=== PATIENT | male | born 1940 | race Caucasian/White ===

== ENCOUNTER 2016-06-03 19:14 | Inpatient (IN) | payer MEDICARE, BC ==
[2016-06-03] MEDS ORDERED: IV VANCOMYCIN PER PHARMACY 1 EACH MISC MISCELLANE PRN (22:25)
[2016-06-03] MEDS ORDERED: ONDANSETRON 4 MG/2 ML VIAL IVP STA (22:25)
[2016-06-03] MEDS ORDERED: KETOROLAC 30 MG/ML 1 ML VIAL IVP STA (22:25)
[2016-06-03] MEDS ORDERED: ACETAMINOPHEN IV (For NPO) 1,000 MG in EMPTY BAG 1 BAG IVPB STA (22:25)
[2016-06-03] MEDS ORDERED: SODIUM CHLORIDE 0.9% 1,000 ML IV STA (22:25)
[2016-06-03] MEDS ORDERED: MORPHINE SULFATE 4 MG/ML SYRINGE IV STA (22:25)
[2016-06-03] MEDS ORDERED: VANCOMYCIN 1,750 MG in SODIUM CHLORIDE 0.9% 250 ML IVPB STA (22:28)
[2016-06-03] MEDS ORDERED: SODIUM CHLORIDE 0.9% 1,000 ML IV ONE (22:32)
[2016-06-03] MEDS ORDERED: RX INFO: IV CONTRAST WAS GIVEN 1 EACH MISC MISCELLANE PRN (22:33)
--- NOTE | 2016-06-03 22:35 | ED ---
General Adult HPI - General Chief complaint: Skin/Abscess/Foreign Body Stated complaint: Surgical Site hurts Time Seen by Provider: 06/03/16 21:33 Source: patient, RN notes reviewed, old records reviewed Mode of arrival: ambulatory Limitations: no limitations - History of Present Illness Initial comments: This is a 76-year-old male to the ER for evaluation of infection, infection of neck, posterior neck. Patient does have history of A. fib is on Coumadin does have history of diabetes. Patient states he developed fever today, has been developing increased pain since he had his mole removed, did have sutures placed , so stiff sutures removed tomorrow. Patient states the pain neck his neck is increasing expansive and getting progressively worse. Patient denies any significant nausea or vomiting. Patient states fever started a he has been taking antibiotics, he is on a second antibiotic and he states his symptoms are still getting worse. Pain is increasing swelling is increasing and warmth to area is increasing. Decreased mobility of his neck in general. - Related Data Allergies Allergy/AdvReac Type Severity Reaction Status Date / Time Sulfa (Sulfonamide Allergy Itching Verified 06/03/16 19:39 Antibiotics) Review of Systems ROS Statement: Those systems with pertinent positive or pertinent negative responses have been documented in the HPI. ROS Other: All systems not noted in ROS Statement are negative. Past Medical History Past Medical History: Cancer, GERD/Reflux, Hyperlipidemia, Hypertension Additional Past Medical History / Comment(s): skin CA History of Any Multi-Drug Resistant Organisms: None Reported Past Surgical History: Coronary Bypass/CABG, Heart Catheterization Additional Past Surgical History / Comment(s): 1994 bypass. hemorrhoid, bilat cataract, hiatal hernia 2012, fatty tumor removed 2004 Past Psychological History: No Psychological Hx Reported Smoking Status: Former smoker Past Alcohol Use History: Occasional, Rare Past Drug Use History: None Reported General Exam Limitations: no limitations General appearance: alert, in no apparent distress Head exam: Present: atraumatic, normocephalic, normal inspection Eye exam: Present: normal appearance, PERRL, EOMI. Absent: scleral icterus, conjunctival injection, periorbital swelling ENT exam: Present: normal exam, mucous membranes moist Neck exam: Present: other (Large abscess to posterior neck). Absent: tenderness , meningismus, lymphadenopathy Respiratory exam: Present: normal lung sounds bilaterally. Absent: respiratory distress, wheezes, rales, rhonchi, stridor Cardiovascular Exam: Present: regular rate, normal rhythm, normal heart sounds. Absent: systolic murmur, diastolic murmur, rubs, gallop, clicks GI/Abdominal exam: Present: soft, normal bowel sounds. Absent: distended, tenderness, guarding, rebound, rigid Extremities exam: Present: normal inspection, full ROM, normal capillary refill. Absent: tenderness, pedal edema, joint swelling, calf tenderness Back exam: Present: normal inspection Neurological exam: Present: alert, oriented X3, CN II-XII intact Psychiatric exam: Present: normal affect, normal mood Skin exam: Present: warm, dry, intact, normal color. Absent: rash Course Vital Signs 06/03/16 19:31 Temperature 100.4 F H Pulse Rate 86 Respiratory 18 Rate Blood Pressure 170/76 O2 Sat by Pulse 95 Oximetry EKG Findings - EKG Comments: EKG Findings:: EKG shows normal sinus at a rate of 69, CO 204, QRS 112, QTC 411 Medical Decision Making - Medical Decision Making 76 male ER for evaluation of posterior neck abscess with sepsis, patient has infection, positive fever, patient will be admitted for fever control, IV antibiotics and surgical evaluation - Radiology Data Radiology results: report reviewed (CT neck pending for abscess evaluation), image reviewed Disposition Clinical Impression: Neck abscess, SIRS (systemic inflammatory response syndrome), Failure of outpatient treatment Disposition: ADMITTED IP TO THIS [facility] Condition: Fair
[2016-06-03 23:11] LABS: INR 1.2 (<1.1); Partial Thromboplastin Time 25.9 sec (22.0-30.0); Prothrombin Time 11.6 sec (9.0-12.0)
[2016-06-03 23:13] LABS: ALT 23 U/L (21-72); AST 18 U/L (17-59); Alkaline Phosphatase 57 U/L (38-126); Anion Gap 15 mmol/L; Blood Urea Nitrogen 26 mg/dL (9-20); Calcium 9.2 mg/dL (8.4-10.2); Carbon Dioxide 28 mmol/L (22-30); Chloride 93 mmol/L (98-107); Glucose 108 mg/dL (74-99); Magnesium 1.8 mg/dL (1.6-2.3); Non-African American GFR(MDRD) 54 (>60 ml/min/1.73 sqM); Phosphorous 3.4 mg/dL (2.5-4.5); Potassium 4.2 mmol/L (3.5-5.1); Sodium 136 mmol/L (137-145); Total Bilirubin 0.7 mg/dL (0.2-1.3); Total Protein 7.4 g/dL (6.3-8.2)
[2016-06-03 23:18] LABS: Appearance,Urine Clear (Clear); Bilirubin,Urine Negative (Negative); Glucose,Urine (UA) Negative (Negative); Ketones,Urine Negative (Negative); Leukocyte Esterase,Urine Negative (Negative); Nitrite,Urine Negative (Negative); PH, Urine 5.5 (5.0-8.0); Protein,Urine Negative (Negative); Specific Gravity,Urine 1.018 (1.001-1.035); UA Billing (MACRO vs. MICRO) CHEM; Urobilinogen,Urine <2.0 mg/dL (<2.0)
[2016-06-03 23:18] LABS: Basophils % (A) 0 %; CH 27.4; CHCM 34.1; Eosinophils # (A) 0.2 k/uL (0-0.7); Eosinophils % (A) 1 %; HCT 43.4 % (39.0-53.0); HDW 2.67; HGB 14.5 gm/dL (13.0-17.5); Luc # (Auto) 0.33; Luc % (Auto) 3; Lymphocytes % (A) 9 %; MCH 26.9 pg (25.0-35.0); MCHC 33.4 g/dL (31.0-37.0); MCV 80.6 fL (80.0-100.0); Mean Platelet Volume 7.2; Monocytes # (A) 0.7 k/uL (0-1.0); Monocytes % (A) 7 %; Neutrophils # (A) 8.7 k/uL (1.3-7.7); Neutrophils % (A) 79 %; RBC 5.39 m/uL (4.30-5.90); RDW 13.9 % (11.5-15.5); WBC 10.9 k/uL (3.8-10.6); WBC (Perox) 10.85
[2016-06-03 23:51] LABS: Creatine Kinase MB 2.1 ng/mL (0.0-2.4)
--- NOTE | 2016-06-04 00:02 | CT ---
EXAMINATION TYPE: CT cervical spine w con DATE OF EXAM: 06/03/2016 11:33 PM COMPARISON: NONE HISTORY: pt had mole removed from posterior neck, and then had to have more taken, now there is infec tion and abscess to the site CT DLP: 739.00 mGycm Automated exposure control for dose reduction was used. CONTRAST: Performed with IV Contrast, patient injected with 80 mL of Visipaque 320. FINDINGS: Thoracic aorta is atheromatous. There is normal branching pattern of the great vessels on the aortic arch. Thyroid gland appears normal. There is atherosclerotic calcification in the carotid arteries. J ugular veins are patent. Submandibular salivary glands are symmetric. Parotid glands are symmetric. T here is subcutaneous increased density over the posterior neck on the left side. There is no discrete fluid collection. There are anterior cervical lymph nodes that measure up to 1.5 cm. Epiglottis appears normal. Subglottic trachea appears normal. There is no evidence of a pharyngeal ma ss. There are moderate spondylotic changes in the mid and lower cervical spine. IMPRESSION: SUBCUTANEOUS EDEMA IN THE POSTERIOR NECK ON THE LEFT SIDE CONSISTENT WITH CELLULITIS. NO ABSCESS SEEN . MILD CERVICAL ADENOPATHY.
[2016-06-04 07:06] LABS: Glucose,Whole Blood 115 mg/dL (75-99)
[2016-06-04] MEDS: MORPHINE SULFATE 2 MG/ML SYRINGE IVP PRN ×3 (08:30→18:11)
--- NOTE | 2016-06-04 10:39 | P.GSCN ---
History of Present Illness Consult date: 06/04/16 Reason for Consult: Cellulitis, possible abscess History of present illness: The patient had a skin lesion removed from the back of his neck. He went in for suture removal and was found he needed to additional margins. That was performed. He had discomfort that evening. It progressively got worse and there was redness so he was seen in the clinic. He was started on antibiotic and had a reaction. Antibiotic was switched and he was having more pain so he came into the emergency department and has been admitted. Admits to a fever. Review of Systems All systems: negative Past Medical History Past Medical History: Cancer, GERD/Reflux, Hyperlipidemia, Hypertension Additional Past Medical History / Comment(s): skin CA History of Any Multi-Drug Resistant Organisms: None Reported Past Surgical History: Coronary Bypass/CABG, Heart Catheterization Additional Past Surgical History / Comment(s): 1994 bypass. hemorrhoid, bilat cataract, hiatal hernia 2012, fatty tumor removed 2004 Past Anesthesia/Blood Transfusion Reactions: No Reported Reaction Past Psychological History: No Psychological Hx Reported Smoking Status: Former smoker Past Alcohol Use History: Occasional, Rare Past Drug Use History: None Reported - Past Family History Father Family Medical History: Congestive Heart Failure (CHF), Respiratory Disorder Medications and Allergies Home Medications Medication Instructions Recorded Confirmed Type Aspirin [Adult Low Dose Aspirin EC] 81 mg PO 06/04/16 History Diltiazem HCl [Diltiazem 24Hr ER] 120 mg PO Q24HR 06/04/16 06/04/16 History Insulin NPL/Insulin Lispro 5 unit SQ 06/04/16 History [Humalog Mix 75-25 Kwikpen] Loratadine 10 mg PO 06/04/16 History Losartan-Hctz 50-12.5 mg [Hyzaar 1 each PO DAILY 06/04/16 06/04/16 History 50-12.5] Metolazone [Zaroxolyn] 5 mg PO 06/04/16 History Metoprolol Tartrate [Lopressor] 12.5 mg PO BID 06/04/16 06/04/16 History Montelukast [Singulair] 10 mg PO DAILY 06/04/16 06/04/16 History Vit C/E/Zinc/Lutein/Zeaxanthin 1 each PO 06/04/16 History [[facility]] Warfarin [Coumadin] 5 mg PO 06/04/16 History Warfarin [Coumadin] 7.5 mg PO 06/04/16 History Allergies Allergy/AdvReac Type Severity Reaction Status Date / Time Sulfa (Sulfonamide Allergy Itching Verified 06/03/16 19:39 Antibiotics) Surgical - Exam Osteopathic Statement: *. No significant issues noted on an osteopathic structural exam other than those noted in the History and Physical/Consult. Vital Signs Temp Pulse Resp BP Pulse Ox 100.4 F H 86 18 170/76 95 06/03/16 19:31 06/03/16 19:31 06/03/16 19:31 06/03/16 19:31 06/03/16 19:31 - General well developed, well nourished, no distress - Eyes normal ocular movement - Integumentary There sutures present on the posterior neck. There is about 1 cm x 3 cm of erythema. Some of the superficial skin may have some slight necrosis. No evidence of undrained abscess Results - Labs 06/03/16 22:40 06/03/16 22:40 Abnormal Lab Results - Last 24 Hours (Table) 06/03/16 06/03/16 06/04/16 Range/Units 22:40 22:40 07:05 WBC 10.9 H (3.8-10.6) k/uL Neutrophils # 8.7 H (1.3-7.7) k/uL Sodium 136 L (137-145) mmol/L Chloride 93 L (98-107) mmol/L BUN 26 H (9-20) mg/dL Creatinine 1.30 H (0.66-1.25) mg/dL Glucose 108 H (74-99) mg/dL POC Glucose (mg/dL) 115 H (75-99) mg/dL Diabetes panel 06/03/16 Range/Units 22:40 Sodium 136 L (137-145) mmol/L Potassium 4.2 (3.5-5.1) mmol/L Chloride 93 L (98-107) mmol/L Carbon Dioxide 28 (22-30) mmol/L BUN 26 H (9-20) mg/dL Creatinine 1.30 H (0.66-1.25) mg/dL Glucose 108 H (74-99) mg/dL Calcium 9.2 (8.4-10.2) mg/dL AST 18 (17-59) U/L ALT 23 (21-72) U/L Alkaline Phosphatase 57 (38-126) U/L Total Protein 7.4 (6.3-8.2) g/dL Albumin 4.3 (3.5-5.0) g/dL Calcium panel 06/03/16 Range/Units 22:40 Calcium 9.2 (8.4-10.2) mg/dL Phosphorus 3.4 (2.5-4.5) mg/dL Albumin 4.3 (3.5-5.0) g/dL Pituitary panel 06/03/16 Range/Units 22:40 Sodium 136 L (137-145) mmol/L Potassium 4.2 (3.5-5.1) mmol/L Chloride 93 L (98-107) mmol/L Carbon Dioxide 28 (22-30) mmol/L BUN 26 H (9-20) mg/dL Creatinine 1.30 H (0.66-1.25) mg/dL Glucose 108 H (74-99) mg/dL Calcium 9.2 (8.4-10.2) mg/dL Adrenal panel 06/03/16 Range/Units 22:40 Sodium 136 L (137-145) mmol/L Potassium 4.2 (3.5-5.1) mmol/L Chloride 93 L (98-107) mmol/L Carbon Dioxide 28 (22-30) mmol/L BUN 26 H (9-20) mg/dL Creatinine 1.30 H (0.66-1.25) mg/dL Glucose 108 H (74-99) mg/dL Calcium 9.2 (8.4-10.2) mg/dL Total Bilirubin 0.7 (0.2-1.3) mg/dL AST 18 (17-59) U/L ALT 23 (21-72) U/L Alkaline Phosphatase 57 (38-126) U/L Total Protein 7.4 (6.3-8.2) g/dL Albumin 4.3 (3.5-5.0) g/dL - Imaging Additional studies: CT neck was reviewed Assessment and Plan (1) Cellulitis Status: Acute (2) Failure of outpatient treatment Status: Acute Plan: No evidence of undrained abscess. Recommend adjusting oral antibiotics. Currently nonsurgical
[2016-06-04 11:53] LABS: Glucose,Whole Blood 155 mg/dL (75-99)
[2016-06-04] MEDS: ASPIRIN 81 MG CHEW PO SCH (14:21)
[2016-06-04] MEDS: CHOLECALCIFEROL 1,000 UNIT TAB PO SCH (14:22)
[2016-06-04] MEDS: METOLAZONE 5 MG TAB PO SCH (14:22)
[2016-06-04] MEDS: ATORVASTATIN 10 MG TAB PO SCH (14:22)
[2016-06-04] MEDS: METOPROLOL TARTRATE 12.5 MG TAB PO SCH (14:22)
[2016-06-04] MEDS: MULTIVITAMINS, THERA 1 EACH TAB PO SCH (14:22)
--- NOTE | 2016-06-04 14:42 | P.HPIM ---
History of Present Illness H&P Date: 06/04/16 Chief Complaint: Next cellulitis with possible sepsis Patient is a 76-year-old male patient of Dr. Anisha Vines who presented to [facility] emergency room due to swelling erythema and induration and pain in the back of his neck. Patient states that on Sunday he had an appointment with his primary care physician for removal of a skin lesion on the back of his neck, per patient he had to return to his doctor's office for a wider excision on , subsequently he started having pain and swelling in the area he was started on Bactrim he took 1 pill and developed some skin itching, he called his doctor's office and the antibiotic was switched to Augmentin, however area continued to get worse with more swelling and induration and pain he decided to come to emergency room he had a computed tomography scan of his neck to rule out abscess and was admitted to medical floor surgical consultation was requested to assess if patient need any surgical intervention. He was started on IV vancomycin in the emergency room. Patient has a known history of coronary artery disease he had coronary artery bypass graft surgery more than 20 years ago He has previous history of atrial fibrillation he is maintained on Coumadin in that regard His Coumadin was stopped for surgical intervention on his neck he has been off Coumadin for several days now. Past Medical History Past Medical History: Cancer, GERD/Reflux, Hyperlipidemia, Hypertension Additional Past Medical History / Comment(s): skin CA History of Any Multi-Drug Resistant Organisms: None Reported Past Surgical History: Coronary Bypass/CABG, Heart Catheterization Additional Past Surgical History / Comment(s): 1994 bypass. hemorrhoid, bilat cataract, hiatal hernia 2012, fatty tumor removed 2004 Past Anesthesia/Blood Transfusion Reactions: No Reported Reaction Past Psychological History: No Psychological Hx Reported Smoking Status: Former smoker Past Alcohol Use History: Occasional, Rare Past Drug Use History: None Reported - Past Family History Father Family Medical History: Congestive Heart Failure (CHF), Respiratory Disorder Medications and Allergies Home Medications Medication Instructions Recorded Confirmed Type Acetaminophen [Tylenol Arthritis] 1,300 mg PO BID 06/04/16 06/04/16 History Aspirin [Adult Low Dose Aspirin EC] 81 mg PO QAM 06/04/16 06/04/16 History Cholecalciferol [Vitamin D3] 5,000 unit PO DAILY 06/04/16 06/04/16 History Diltiazem HCl 120 mg PO HS 06/04/16 06/04/16 History Insulin NPL/Insulin Lispro 5 unit SQ AC-BID 06/04/16 06/04/16 History [Humalog Mix 75-25 Kwikpen] Insulin NPL/Insulin Lispro 35 - 40 unit SQ HS 06/04/16 06/04/16 History [humaLOG Mix 75-25 Kwikpen] Loratadine 10 mg PO HS 06/04/16 06/04/16 History Losartan-Hctz 50-12.5 mg [Hyzaar 1 tab PO HS 06/04/16 06/04/16 History 50-12.5] Metolazone [Zaroxolyn] 5 mg PO Q72H 06/04/16 06/04/16 History Metoprolol Tartrate [Lopressor] 12.5 mg PO QAM 06/04/16 06/04/16 History Montelukast [Singulair] 10 mg PO HS 06/04/16 06/04/16 History Multivitamins, Thera [Multivitamin] 1 tab PO DAILY 06/04/16 06/04/16 History Simvastatin [Zocor] 20 mg PO Q48H 06/04/16 06/04/16 History Vit C/E/Zinc/Lutein/Zeaxanthin 1 tab PO DAILY 06/04/16 06/04/16 History [[facility]] Warfarin [Coumadin] 5 mg PO SUWE 06/04/16 06/04/16 History Warfarin [Coumadin] 7.5 mg PO MOTUTHFRSA 06/04/16 06/04/16 History Allergies Allergy/AdvReac Type Severity Reaction Status Date / Time Sulfa (Sulfonamide Allergy Itching Verified 06/04/16 12:20 Antibiotics) Physical Exam Vitals: Vital Signs Temp Pulse Pulse Resp BP BP Pulse Ox 06/04/16 08:10 95 06/04/16 08:00 12 06/04/16 07:00 98.7 F 75 12 103/54 92 L 06/04/16 00:00 99.2 F 73 18 123/63 94 L 06/03/16 23:26 72 14 154/76 94 L Intake and Output 06/03/16 06/04/16 06/04/16 22:59 06:59 14:59 Intake Total 250 Balance 250 Intake: Oral 250 Other: Voiding Method Toilet Toilet Weight 107 kg In general patient is alert and oriented 3 in no apparent distress HEENT head normocephalic and atraumatic Neck is supple no JVD no goiter no lymphadenopathy There is an area of induration and erythema measuring 7 cm 5 cm on the left side of the posterior neck in the middle of it there is a 3 cm 1 cm scab with sutures inside to scab Chest exam reveals a few scattered crackles no wheezing Cardiac exam reveals regular heart sounds S1 and S2 no gallops no murmurs Abdomen is soft nontender no organomegaly with normal bowel sounds Extremity exam reveals no edema no cyanosis or clubbing Results CBC & Chem 7: 06/03/16 22:40 06/03/16 22:40 Labs: Abnormal Lab Results - Last 24 Hours (Table) 06/03/16 06/03/16 06/04/16 Range/Units 22:40 22:40 07:05 WBC 10.9 H (3.8-10.6) k/uL Neutrophils # 8.7 H (1.3-7.7) k/uL Sodium 136 L (137-145) mmol/L Chloride 93 L (98-107) mmol/L BUN 26 H (9-20) mg/dL Creatinine 1.30 H (0.66-1.25) mg/dL Glucose 108 H (74-99) mg/dL POC Glucose (mg/dL) 115 H (75-99) mg/dL 06/04/16 Range/Units 11:51 WBC (3.8-10.6) k/uL Neutrophils # (1.3-7.7) k/uL Sodium (137-145) mmol/L Chloride (98-107) mmol/L BUN (9-20) mg/dL Creatinine (0.66-1.25) mg/dL Glucose (74-99) mg/dL POC Glucose (mg/dL) 155 H (75-99) mg/dL Microbiology - Last 24 Hours (Table) 06/03/16 23:05 Urine Culture - Preliminary Urine,Clean Catch Thrombosis Risk Factor Assmnt - Choose All That Apply Any of the Below Risk Factors Present?: Yes Each Factor Represents 1 point: Obesity (BMI >25) Other Risk Factors: Yes Each Risk Factor Represents 3 Points: Age 75 years or older Other congenital or acquired thrombophilia - If yes, enter type in comment: No Thrombosis Risk Factor Assessment Total Risk Factor Score: 4 Thrombosis Risk Factor Assessment Level: Moderate Risk Assessment and Plan Plan: #1 cellulitis of the neck at this time may patient is maintained on IV vancomycin will add Zosyn to regimen Awaiting blood culture results, if there is any bruising of the wound will obtain wound culture Will consult infectious disease #2 underlying history of paroxysmal atrial fibrillation, will resume Coumadin, patient was seen by surgery and no intervention recommended at this time #3 underlying history of coronary artery disease with coronary artery bypass graft surgery more than 20 years ago #4 for pain control will continue with IV morphine as needed Will also give [place] on a when necessary basis Will follow during this admission for medical management thank you very much
[2016-06-04] MEDS: HYDROcodone/APAP 7.5-325MG 1 EACH TAB PO PRN ×2 (15:40→21:04)
[2016-06-04] MEDS ORDERED: PIPERACILLIN-TAZOBACTAM 3.375 GM in DEXTROSE/WATER 1 50ML.BAG IVPB SCH (16:00)
[2016-06-04 17:11] LABS: Glucose,Whole Blood 170 mg/dL (75-99)
[2016-06-04] MEDS: WARFARIN 5 MG TAB PO SCH (17:38)
[2016-06-04] MEDS ORDERED: cefTRIAXone 2,000 MG in SODIUM CHLORIDE 0.9% 100 ML IVPB SCH (20:00)
[2016-06-04] MEDS ORDERED: VANCOMYCIN 1,750 MG in SODIUM CHLORIDE 0.9% 250 ML IVPB SCH (21:00)
[2016-06-04] MEDS: DILTIAZEM CD 120 MG CAP.ER.24H PO SCH (21:08)
[2016-06-04] MEDS: MONTELUKAST 10 MG TAB PO SCH (21:08)
--- NOTE | 2016-06-04 21:08 | P.CONS ---
History of Present Illness - Reason for Consult Consult date: 06/04/16 - Chief Complaint Pain left posterior neck - History of Present Illness Very pleasant 76-year-old male presents to the emergency center with ongoing pain and swelling to the posterior aspect of his neck to the left side. The patient relates that a few weeks ago he was having difficulty with the mole and consequently it was removed by his primary care physician. Apparently the pathology showed evidence of active border, and consequently further resection is been performed 1 week ago. He originally was doing relatively well but then developed evidence significant pain and swelling to the site. There is also evidence of some erythema. He was seen in the outpatient setting and was treated with Bactrim. However developed an extensive erythematous rash of his face and felt poorly. He took some Benadryl and antibiotic was switched to Augmentin. Despite that he was worsening and presented to the emergency center. Because of the extensive infection he was admitted to hospital and surgical consultation was requested. Not thought to need surgical intervention at this time and the computed tomography scan did not show evidence of an extensive abscess. Patient has significant tenderness at the site. He has had fever with low-grade chill but no kade rigor. Feeling just slightly better this evening. Site is still quite uncomfortable. Review of Systems HEENT:Denies headache or acute visual change. Denies sinus or mouth discomforts. Denies neck stiffness or pain. Denies significant oral cavity pain. Denies difficulty on swallowing. Lungs: Denies significant shortness of breath, cough, sputum production, or hemoptysis. Cardiovascular: Denies significant shortness of breath, chest pain, chest wall pain, orthopnea, dyspnea on exertion, syncope Gastrointestinal:Denies nausea, vomiting, diarrhea, constipation, hematemesis, melena, hematochezia. No no significant change of bowel habit noticed. Musculoskeletal: denies significant myalgias or arthralgias. No new joint swelling. Denies new back pain. Skin: As per the HPI Neuro: Denies headache or visual change. Denies any new onset weakness or difficulty with ambulation. Denies falls or seizures. Psychiatric:Denies anxiety or depression. Endocrine: Denies significant fatigue, denies significant weight loss or weight gain. Past Medical History Past Medical History: Cancer, GERD/Reflux, Hyperlipidemia, Hypertension Additional Past Medical History / Comment(s): skin CA History of Any Multi-Drug Resistant Organisms: None Reported Past Surgical History: Coronary Bypass/CABG, Heart Catheterization Additional Past Surgical History / Comment(s): 1994 bypass. hemorrhoid, bilat cataract, hiatal hernia 2012, fatty tumor removed 2004 Past Anesthesia/Blood Transfusion Reactions: No Reported Reaction Past Psychological History: No Psychological Hx Reported Additional Psychological History / Comment(s): . 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 History of tobacco use stopped years ago. No severe alcohol use. No recreational drug use. Pet dog Smoking Status: Former smoker Past Alcohol Use History: Occasional, Rare Past Drug Use History: None Reported - Past Family History Father Family Medical History: Congestive Heart Failure (CHF), Respiratory Disorder Medications and Allergies Home Medications and Allergies Comment(s): Current Medications Acetaminophen/Hydrocodone Bitart ([place] 7.5-325) 1 each PO Q6H PRN PRN Reason: Pain Last Admin: 06/04/16 15:40 Dose: 1 each Aspirin (Aspirin) 81 mg PO QAM [facility] Last Admin: 06/04/16 14:21 Dose: 81 mg Atorvastatin Calcium (Lipitor) 10 mg PO Q48H [facility] Last Admin: 06/04/16 14:22 Dose: 10 mg Cholecalciferol (Vitamin D3) 5,000 unit PO DAILY@1200 [facility] Last Admin: 06/04/16 14:22 Dose: 5,000 unit Diltiazem HCl (Cardizem Cd) 120 mg PO HS [facility] HCTZ/Losartan Potassium (Hyzaar 50-12.5) 1 each PO HS MINI Vancomycin HCl 1,750 mg/ (Sodium Chloride) 250 mls @ 125 mls/hr IVPB Q24H MINI Ceftriaxone Sodium 2,000 mg/ (Sodium Chloride) 100 mls @ 100 mls/hr IVPB Q24H [facility] Last Admin: 06/04/16 20:02 Dose: 100 mls/hr Loratadine (Claritin) 10 mg PO HS [facility] Metolazone (Zaroxolyn) 5 mg PO Q72H [facility] Last Admin: 06/04/16 14:22 Dose: 5 mg Metoprolol Tartrate (Lopressor) 12.5 mg PO QAM [facility] Last Admin: 06/04/16 14:22 Dose: 12.5 mg Miscellaneous Information (Rx Info: Iv Contrast Was Given) 1 each MISCELLANE DAILY PRN PRN Reason: Per Protocol Stop: 06/05/16 22:33 Montelukast Sodium (Singulair) 10 mg PO [facility] Morphine Sulfate (Morphine Sulfate (Inj)) 2 mg IVP Q3H PRN PRN Reason: Pain/Discomfort Last Admin: 06/04/16 18:11 Dose: 2 mg Multivitamins (Theragran) 1 each PO DAILY@1200 [facility] Last Admin: 06/04/16 14:22 Dose: 1 each Warfarin Sodium (Coumadin) 5 mg PO [email or web address] [facility] Last Admin: 06/04/16 17:38 Dose: 5 mg Warfarin Sodium (Coumadin) 7.5 mg PO [email or web address] [facility] Home Medications Medication Instructions Recorded Confirmed Type Acetaminophen [Tylenol Arthritis] 1,300 mg PO BID 06/04/16 06/04/16 History Aspirin [Adult Low Dose Aspirin EC] 81 mg PO [facility] 06/04/16 06/04/16 History Cholecalciferol [Vitamin D3] 5,000 unit PO DAILY 06/04/16 06/04/16 History Diltiazem HCl 120 mg PO 06/04/16 06/04/16 History Insulin NPL/Insulin Lispro 5 unit SQ AC-BID 06/04/16 06/04/16 History [Humalog Mix 75-25 Kwikpen] Insulin NPL/Insulin Lispro 35 - 40 unit SQ 06/04/16 06/04/16 History [humaLOG Mix 75-25 Kwikpen] Loratadine 10 mg PO 06/04/16 06/04/16 History Losartan-Hctz 50-12.5 mg [Hyzaar 1 tab PO 06/04/16 06/04/16 History 50-12.5] Metolazone [Zaroxolyn] 5 mg PO Q72H 06/04/16 06/04/16 History Metoprolol Tartrate [Lopressor] 12.5 mg PO [facility] 06/04/16 06/04/16 History Montelukast [Singulair] 10 mg PO 06/04/16 06/04/16 History Multivitamins, Thera [Multivitamin] 1 tab PO DAILY 06/04/16 06/04/16 History Simvastatin [Zocor] 20 mg PO Q48H 06/04/16 06/04/16 History Vit C/E/Zinc/Lutein/Zeaxanthin 1 tab PO DAILY 06/04/16 06/04/16 History [Ocuvite Eye Health Gummies] Warfarin [Coumadin] 5 mg PO SUWE 06/04/16 06/04/16 History Warfarin [Coumadin] 7.5 mg PO MOTUTHFRSA 06/04/16 06/04/16 History Allergies Allergy/AdvReac Type Severity Reaction Status Date / Time Sulfa (Sulfonamide Allergy Itching Verified 06/04/16 12:20 Antibiotics) Physical Exam Vitals: Vital Signs Temp Pulse Pulse Resp BP BP Pulse Ox 06/04/16 15:08 12 06/04/16 15:00 100.2 F H 70 16 145/64 93 L 06/04/16 08:10 95 06/04/16 08:00 12 06/04/16 07:00 98.7 F 75 12 103/54 92 L 06/04/16 00:00 99.2 F 73 18 123/63 94 L 06/03/16 23:26 72 14 154/76 94 L Intake and Output 06/04/16 06/04/16 06/04/16 06:59 14:59 22:59 Intake Total 250 Balance 250 Intake: Oral 250 Other: Voiding Method Toilet Toilet Toilet # Voids 1 Weight 107 kg HEENT: Anicteric conjunctiva are pink and moist nasal mucosa grossly intact without significant lesions, there is no thrush. Neck: The neck is supple without significant lymphadenopathy or thyromegaly. Lungs: Good bilateral air entry without significant crackles or wheezing. There is no significant bronchial sounds. There is no egophony or dullness. Heart: Regular rate and rhythm with an audible S1-S2, no S3 no S4. There is no significant murmur click or rub, PMI was nondisplaced. Abdomen: Positive bowel sounds soft and nontender without palpable masses or organomegaly. There was no guarding or rebound. Extremities: The upper extremities have excellent pulses they are symmetric, no significant petechiae or telangiectasia. No splinter hemorrhages were noted. The lower extremities are free from significant edema. The peripheral pulses were 2+ and symmetric. Neuro: Awake alert oriented to person place and time. There are no acute new gross focal sensory motor deficits. Skin patient has evidence of the surgical intervention to the posterior aspect of the left neck. Sutures remain in place. There is evidence of fluctuance. The site is manipulated and grossly purulent and blood-tinged material is easily expressed from the midpoint of the incision. With this is sutures were not removed at this time with concerns of disruption of the suture line. Dressing is put into place. Results CBC & Chem 7: 06/03/16 22:40 06/03/16 22:40 Labs: Abnormal Lab Results - Last 24 Hours (Table) 06/03/16 06/03/16 06/04/16 Range/Units 22:40 22:40 07:05 WBC 10.9 H (3.8-10.6) k/uL Neutrophils # 8.7 H (1.3-7.7) k/uL Sodium 136 L (137-145) mmol/L Chloride 93 L (98-107) mmol/L BUN 26 H (9-20) mg/dL Creatinine 1.30 H (0.66-1.25) mg/dL Glucose 108 H (74-99) mg/dL POC Glucose (mg/dL) 115 H (75-99) mg/dL 06/04/16 06/04/16 Range/Units 11:51 17:09 WBC (3.8-10.6) k/uL Neutrophils # (1.3-7.7) k/uL Sodium (137-145) mmol/L Chloride (98-107) mmol/L BUN (9-20) mg/dL Creatinine (0.66-1.25) mg/dL Glucose (74-99) mg/dL POC Glucose (mg/dL) 155 H 170 H (75-99) mg/dL Microbiology - Last 24 Hours (Table) 06/03/16 23:05 Urine Culture - Preliminary Urine,Clean Catch Laboratory Results WBC 10.9 k/uL (3.8-10.6) H 06/03/16 22:40 RBC 5.39 m/uL (4.30-5.90) 06/03/16 22:40 Hgb 14.5 gm/dL (13.0-17.5) 06/03/16 22:40 Hct 43.4 % (39.0-53.0) 06/03/16 22:40 MCV 80.6 fL (80.0-100.0) 06/03/16 22:40 MCH 26.9 pg (25.0-35.0) 06/03/16 22:40 MCHC 33.4 g/dL (31.0-37.0) 06/03/16 22:40 RDW 13.9 % (11.5-15.5) 06/03/16 22:40 Plt Count 195 k/uL (150-450) 06/03/16 22:40 Neutrophils % 79 % 06/03/16 22:40 Lymphocytes % 9 % 06/03/16 22:40 Monocytes % 7 % 06/03/16 22:40 Eosinophils % 1 % 06/03/16 22:40 Basophils % 0 % 06/03/16 22:40 Neutrophils # 8.7 k/uL (1.3-7.7) H 06/03/16 22:40 Lymphocytes # 1.0 k/uL (1.0-4.8) 06/03/16 22:40 Monocytes # 0.7 k/uL (0-1.0) 06/03/16 22:40 Eosinophils # 0.2 k/uL (0-0.7) 06/03/16 22:40 Basophils # 0.0 k/uL (0-0.2) 06/03/16 22:40 PT 11.6 sec (9.0-12.0) 06/03/16 22:40 INR 1.2 (<1.1) 06/03/16 22:40 APTT 25.9 sec (22.0-30.0) 06/03/16 22:40 Sodium 136 mmol/L (137-145) L 06/03/16 22:40 Potassium 4.2 mmol/L (3.5-5.1) 06/03/16 22:40 Chloride 93 mmol/L (98-107) L 06/03/16 22:40 Carbon Dioxide 28 mmol/L (22-30) 06/03/16 22:40 Anion Gap 15 mmol/L 06/03/16 22:40 BUN 26 mg/dL (9-20) H 06/03/16 22:40 Creatinine 1.30 mg/dL (0.66-1.25) H 06/03/16 22:40 Est GFR (MDRD) Af Amer >60 (>60 ml/min/1.73 sqM) 06/03/16 22:40 Est GFR (MDRD) Non-Af 54 (>60 ml/min/1.73 sqM) 06/03/16 22:40 Glucose 108 mg/dL (74-99) H 06/03/16 22:40 POC Glucose (mg/dL) 170 mg/dL (75-99) H 06/04/16 17:09 POC Glu Optics Technical Officer ID Peg Jaffe 06/04/16 17:09 Plasma Lactic Acid Earl 0.8 mmol/L (0.7-2.0) 06/03/16 22:40 Calcium 9.2 mg/dL (8.4-10.2) 06/03/16 22:40 Phosphorus 3.4 mg/dL (2.5-4.5) 06/03/16 22:40 Magnesium 1.8 mg/dL (1.6-2.3) 06/03/16 22:40 Total Bilirubin 0.7 mg/dL (0.2-1.3) 06/03/16 22:40 AST 18 U/L (17-59) 06/03/16 22:40 ALT 23 U/L (21-72) 06/03/16 22:40 Alkaline Phosphatase 57 U/L (38-126) 06/03/16 22:40 Total Creatine Kinase 92 U/L (55-170) 06/03/16 22:40 CK-MB (CK-2) 2.1 ng/mL (0.0-2.4) 06/03/16 22:40 CK-MB (CK-2) Rel Index 2.3 06/03/16 22:40 Total Protein 7.4 g/dL (6.3-8.2) 06/03/16 22:40 Albumin 4.3 g/dL (3.5-5.0) 06/03/16 22:40 Urine Color Yellow 06/03/16 23:05 Urine Appearance Clear (Clear) 06/03/16 23:05 Urine pH 5.5 (5.0-8.0) 06/03/16 23:05 Ur Specific [place] 1.018 (1.001-1.035) 06/03/16 23:05 Urine Protein Negative (Negative) 06/03/16 23:05 Urine Glucose (UA) Negative (Negative) 06/03/16 23:05 Urine Ketones Negative (Negative) 06/03/16 23:05 Urine Blood Negative (Negative) 06/03/16 23:05 Urine Nitrate Negative (Negative) 06/03/16 23:05 Urine Bilirubin Negative (Negative) 06/03/16 23:05 Urine Urobilinogen <2.0 mg/dL (<2.0) 06/03/16 23:05 Ur Leukocyte Esterase Negative (Negative) 06/03/16 23:05 Microbiology 06/03/16 23:05 Urine,Clean Catch Urine Culture - Preliminary Assessment and Plan (1) Neck abscess Narrative/Plan: 76-year-old male with history of diabetes mellitus type 2 had an abnormal growth on the posterior aspect of the left side of his neck. He underwent resection of this area. Apparently the margins were not clear and constantly resection was performed. Is out of evidence of an abscess at that site engrossing print material has been expressed from the area and sent to the laboratory for culture. Concerns to MRSA as well as other pathogens. Vancomycin will continue. Was switched to ceftriaxone for coverage for other gram-negative organisms related to this area. Culture will help further direct antibiotic therapy. Dry dressing and a place to observe the purulent drainage. Will consider suture removal tomorrow depending on progress. Leukocytosis will be monitored. Fever has improved. Status: Acute (2) Cellulitis Status: Acute (3) Leukocytosis Status: Acute
[2016-06-04] MEDS: LOSARTAN-HCTZ 50-12.5 MG 1 EACH TAB PO SCH (21:09)
[2016-06-04] MEDS: LORATADINE 10 MG TAB PO SCH (21:09)
[2016-06-04 21:11] LABS: Glucose,Whole Blood 219 mg/dL (75-99)
[2016-06-05] MEDS: HYDROcodone/APAP 7.5-325MG 1 EACH TAB PO PRN ×2 (03:10→19:49)
[2016-06-05 07:42] LABS: Glucose,Whole Blood 150 mg/dL (75-99)
[2016-06-05 09:10] LABS: INR 1.2 (<1.1); Prothrombin Time 12.1 sec (9.0-12.0)
[2016-06-05 09:11] LABS: Basophils % (A) 0 %; CH 27.3; CHCM 33.1; Eosinophils # (A) 0.2 k/uL (0-0.7); Eosinophils % (A) 2 %; HCT 40.7 % (39.0-53.0); HDW 2.65; HGB 13.1 gm/dL (13.0-17.5); Luc % (Auto) 3; Lymphocytes % (A) 10 %; MCH 26.5 pg (25.0-35.0); MCHC 32.1 g/dL (31.0-37.0); MCV 82.6 fL (80.0-100.0); Monocytes # (A) 0.7 k/uL (0-1.0); Monocytes % (A) 8 %; Neutrophils # (A) 7.4 k/uL (1.3-7.7); Neutrophils % (A) 77 %; RBC 4.92 m/uL (4.30-5.90); RDW 13.7 % (11.5-15.5); WBC 9.6 k/uL (3.8-10.6); WBC (Perox) 9.77
[2016-06-05 09:26] LABS: ALT 29 U/L (21-72); AST 23 U/L (17-59); Alkaline Phosphatase 59 U/L (38-126); Anion Gap 11 mmol/L; Blood Urea Nitrogen 16 mg/dL (9-20); Calcium 8.8 mg/dL (8.4-10.2); Carbon Dioxide 31 mmol/L (22-30); Chloride 94 mmol/L (98-107); Glucose 151 mg/dL (74-99); Non-African American GFR(MDRD) >60 (>60 ml/min/1.73 sqM); Potassium 4.1 mmol/L (3.5-5.1); Sodium 136 mmol/L (137-145); Total Bilirubin 0.8 mg/dL (0.2-1.3); Total Protein 6.9 g/dL (6.3-8.2)
[2016-06-05] MEDS: METOPROLOL TARTRATE 12.5 MG TAB PO SCH (10:17)
[2016-06-05] MEDS: ASPIRIN 81 MG CHEW PO SCH (10:17)
--- NOTE | 2016-06-05 11:25 | P.PN ---
Subjective Neck cellulitis This is a 76-year-old male who presented with swelling and erythema and induration in the back of his neck. He had a skin lesion removal by his PCP on Sunday. Started on oral antibiotics with no improvement. Patient currently on IV vancomycin and Rocephin. Infectious disease is following. They did remove a couple of sutures and was able to expel some pus. This has been cultured by infectious disease. Also evaluated by surgical service no surgical intervention at this time. Patient denies any chest pain or shortness of breath any nausea or vomiting. Denies any bowel movement changes or urinary symptoms. Denies any headache. He did have a low-grade temp history of 100.2 Objective - Vital Signs Vital signs: Vital Signs Temp 99.8 F H 06/05/16 07:00 Pulse 74 06/05/16 07:00 Resp 20 06/05/16 07:00 BP 118/66 06/05/16 07:00 Pulse Ox 94 L 06/05/16 07:00 Intake & Output 06/04/16 06/05/16 06/05/16 18:59 06:59 18:59 Other: Voiding Method Toilet # Voids 1 1 # Bowel Movements 0 - Exam Head normocephalic Neck posterior aspect on the left side of the neck along the incision red puslike drainage. Lungs clear to auscultation bilaterally no wheezing or crackles Heart regular rate and rhythm S1-S2, no rub or gallop Abdomen is soft nontender nondistended positive bowel sounds no hepatosplenomegaly Extremities no edema Neuro alert and orientated to 3 - Labs CBC & Chem 7: 06/05/16 08:25 06/05/16 08:25 Labs: Abnormal Lab Results - Last 24 Hours (Table) 06/04/16 06/04/16 06/04/16 Range/Units 11:51 17:09 21:06 ESR (0-15) mm/hr PT (9.0-12.0) sec Sodium (137-145) mmol/L Chloride (98-107) mmol/L Carbon Dioxide (22-30) mmol/L Glucose (74-99) mg/dL POC Glucose (mg/dL) 155 H 170 H 219 H (75-99) mg/dL Prealbumin (18-36) mg/dL 06/05/16 06/05/16 06/05/16 Range/Units 07:08 08:25 08:25 ESR (0-15) mm/hr PT 12.1 H (9.0-12.0) sec Sodium 136 L (137-145) mmol/L Chloride 94 L (98-107) mmol/L Carbon Dioxide 31 H (22-30) mmol/L Glucose 151 H (74-99) mg/dL POC Glucose (mg/dL) 150 H (75-99) mg/dL Prealbumin (18-36) mg/dL 06/05/16 06/05/16 Range/Units 08:25 08:25 ESR 52 H (0-15) mm/hr PT (9.0-12.0) sec Sodium (137-145) mmol/L Chloride (98-107) mmol/L Carbon Dioxide (22-30) mmol/L Glucose (74-99) mg/dL POC Glucose (mg/dL) (75-99) mg/dL Prealbumin 15 L (18-36) mg/dL Microbiology - Last 24 Hours (Table) 06/03/16 22:40 Blood Culture - Preliminary Blood No Growth after 24 hours 06/04/16 18:12 Gram Stain - Preliminary Neck Wound Culture - Preliminary 06/03/16 23:05 Urine Culture - Preliminary Urine,Clean Catch Assessment and Plan Plan: 1. Neck cellulitis at incision site. Wound culture growing gram-positive cocci patient currently on vancomycin and Rocephin. Infectious disease is following. Evaluated by surgical service no intervention needed. Computed tomography scan of the next showed no evidence of abscess 2. Paroxysmal atrial fibrillation currently on Coumadin. INR subtherapeutic. Patient receiving Coumadin 7.5 tonight. Repeat PT/INR in a.m. 3. History of coronary artery disease with previous coronary artery bypass grafting 20 years ago 4. Diabetes mellitus, insulin-dependent: And sliding scale coverage. Home insulin currently on hold 5. Acute kidney injury: Improved with IV fluids. Fluids have been heplocked 6. Essential hypertension continue with home medications
[2016-06-05 12:34] LABS: Glucose,Whole Blood 157 mg/dL (75-99)
[2016-06-05 13:19] LABS: Hemoglobin A1C 7.3 % (4.2-6.1)
[2016-06-05] MEDS: CHOLECALCIFEROL 1,000 UNIT TAB PO SCH (13:57)
[2016-06-05] MEDS: MULTIVITAMINS, THERA 1 EACH TAB PO SCH (13:57)
[2016-06-05] MEDS: INSULIN NPL/INSULIN LISPRO 100 UNIT/ML 10 ML VIAL (Humalog 75/25) SQ SCH ×2 (13:58→17:57)
[2016-06-05] MEDS: INSULIN LISPRO (humaLOG) 300 UNIT/3 ML VIAL SQ SCH ×3 (13:59→22:09)
[2016-06-05] MEDS: ENOXAPARIN 40 MG/0.4 ML SYRINGE SQ SCH (14:36)
[2016-06-05] MEDS: VANCOMYCIN 1,750 MG in SODIUM CHLORIDE 0.9% 250 ML IVPB SCH (17:10)
[2016-06-05] MEDS: WARFARIN 7.5 MG TAB PO SCH (17:10)
[2016-06-05 17:17] LABS: Glucose,Whole Blood 245 mg/dL (75-99)
--- NOTE | 2016-06-05 19:09 | P.PN ---
Subjective Principal diagnosis: Neck abscess Very pleasant 76-year-old male presents to the emergency center with ongoing pain and swelling to the posterior aspect of his neck to the left side. The patient relates that a few weeks ago he was having difficulty with the mole and consequently it was removed by his primary care physician. Apparently the pathology showed evidence of active border, and consequently further resection is been performed 1 week ago. He originally was doing relatively well but then developed evidence significant pain and swelling to the site. There is also evidence of some erythema. He was seen in the outpatient setting and was treated with Bactrim. However developed an extensive erythematous rash of his face and felt poorly. He took some Benadryl and antibiotic was switched to Augmentin. Despite that he was worsening and presented to the emergency center. Because of the extensive infection he was admitted to hospital and surgical consultation was requested. Not thought to need surgical intervention at this time and the computed tomography scan did not show evidence of an extensive abscess. Patient has significant tenderness at the site. He has had fever with low-grade chill but no kade rigor. Feeling better today. Improve range of motion to the neck with drainage from yesterday Objective - Vital Signs Vital signs: Vital Signs Temp 98.1 F 06/05/16 15:00 Pulse 69 06/05/16 15:00 Resp 20 06/05/16 15:00 BP 140/68 06/05/16 15:00 Pulse Ox 97 06/05/16 15:00 Intake & Output 06/04/16 06/05/16 06/05/16 18:59 06:59 18:59 Intake Total 240 Balance 240 Intake: Oral 240 Other: Voiding Method Toilet # Voids 1 1 3 # Bowel Movements 0 1 - Exam HEENT: Anicteric conjunctiva are pink and moist nasal mucosa grossly intact without significant lesions, there is no thrush. Neck: The neck is supple without significant lymphadenopathy or thyromegaly. Lungs: Good bilateral air entry without significant crackles or wheezing. There is no significant bronchial sounds. There is no egophony or dullness. Heart: Regular rate and rhythm with an audible S1-S2, no S3 no S4. There is no significant murmur click or rub, PMI was nondisplaced. Abdomen: Positive bowel sounds soft and nontender without palpable masses or organomegaly. There was no guarding or rebound. Extremities: The upper extremities have excellent pulses they are symmetric, no significant petechiae or telangiectasia. No splinter hemorrhages were noted. The lower extremities are free from significant edema. The peripheral pulses were 2+ and symmetric. Neuro: Awake alert oriented to person place and time. There are no acute new gross focal sensory motor deficits. Skin patient has evidence of the surgical intervention to the posterior aspect of the left neck. Sutures remain in place. There is evidence of fluctuance. The site is manipulated and grossly purulent and blood-tinged material is easily expressed from the midpoint of the incision. The suture is snipped and removed, bloody purulent material was easily expressed. There is still distinct induration especially at the midpoint of the incision. - Labs CBC & Chem 7: 06/05/16 08:25 06/05/16 08:25 Labs: Abnormal Lab Results - Last 24 Hours (Table) 06/04/16 06/05/16 06/05/16 Range/Units 21:06 07:08 08:25 ESR (0-15) mm/hr PT (9.0-12.0) sec Sodium 136 L (137-145) mmol/L Chloride 94 L (98-107) mmol/L Carbon Dioxide 31 H (22-30) mmol/L Glucose 151 H (74-99) mg/dL POC Glucose (mg/dL) 219 H 150 H (75-99) mg/dL Hemoglobin A1c (4.2-6.1) % Prealbumin (18-36) mg/dL 06/05/16 06/05/16 06/05/16 Range/Units 08:25 08:25 08:25 ESR 52 H (0-15) mm/hr PT 12.1 H (9.0-12.0) sec Sodium (137-145) mmol/L Chloride (98-107) mmol/L Carbon Dioxide (22-30) mmol/L Glucose (74-99) mg/dL POC Glucose (mg/dL) (75-99) mg/dL Hemoglobin A1c (4.2-6.1) % Prealbumin 15 L (18-36) mg/dL 06/05/16 06/05/16 06/05/16 Range/Units 08:25 11:56 17:14 ESR (0-15) mm/hr PT (9.0-12.0) sec Sodium (137-145) mmol/L Chloride (98-107) mmol/L Carbon Dioxide (22-30) mmol/L Glucose (74-99) mg/dL POC Glucose (mg/dL) 157 H 245 H (75-99) mg/dL Hemoglobin A1c 7.3 H (4.2-6.1) % Prealbumin (18-36) mg/dL Microbiology - Last 24 Hours (Table) 06/04/16 15:20 Blood Culture - Preliminary Blood No Growth after 24 hours 06/03/16 23:05 Urine Culture - Final Urine,Clean Catch 06/03/16 22:40 Blood Culture - Preliminary Blood No Growth after 24 hours 06/04/16 18:12 Gram Stain - Preliminary Neck Wound Culture - Preliminary Laboratory Results WBC 9.6 k/uL (3.8-10.6) 06/05/16 08:25 RBC 4.92 m/uL (4.30-5.90) 06/05/16 08:25 Hgb 13.1 gm/dL (13.0-17.5) 06/05/16 08:25 Hct 40.7 % (39.0-53.0) 06/05/16 08:25 MCV 82.6 fL (80.0-100.0) 06/05/16 08:25 MCH 26.5 pg (25.0-35.0) 06/05/16 08:25 MCHC 32.1 g/dL (31.0-37.0) 06/05/16 08:25 RDW 13.7 % (11.5-15.5) 06/05/16 08:25 Plt Count 193 k/uL (150-450) 06/05/16 08:25 Neutrophils % 77 % 06/05/16 08:25 Lymphocytes % 10 % 06/05/16 08:25 Monocytes % 8 % 06/05/16 08:25 Eosinophils % 2 % 06/05/16 08:25 Basophils % 0 % 06/05/16 08:25 Neutrophils # 7.4 k/uL (1.3-7.7) 06/05/16 08:25 Lymphocytes # 1.0 k/uL (1.0-4.8) 06/05/16 08:25 Monocytes # 0.7 k/uL (0-1.0) 06/05/16 08:25 Eosinophils # 0.2 k/uL (0-0.7) 06/05/16 08:25 Basophils # 0.0 k/uL (0-0.2) 06/05/16 08:25 ESR 52 mm/hr (0-15) H 06/05/16 08:25 PT 12.1 sec (9.0-12.0) H 06/05/16 08:25 INR 1.2 (<1.1) 06/05/16 08:25 APTT 25.9 sec (22.0-30.0) 06/03/16 22:40 Sodium 136 mmol/L (137-145) L 06/05/16 08:25 Potassium 4.1 mmol/L (3.5-5.1) 06/05/16 08:25 Chloride 94 mmol/L (98-107) L 06/05/16 08:25 Carbon Dioxide 31 mmol/L (22-30) H 06/05/16 08:25 Anion Gap 11 mmol/L 06/05/16 08:25 BUN 16 mg/dL (9-20) 06/05/16 08:25 Creatinine 0.96 mg/dL (0.66-1.25) 06/05/16 08:25 Est GFR (MDRD) Af Amer >60 (>60 ml/min/1.73 sqM) 06/05/16 08:25 Est GFR (MDRD) Non-Af >60 (>60 ml/min/1.73 sqM) 06/05/16 08:25 Glucose 151 mg/dL (74-99) H 06/05/16 08:25 POC Glucose (mg/dL) 245 mg/dL (75-99) H 06/05/16 17:14 POC Glu Ciaio Lumite Injector ID Shefali Valenzuela 06/05/16 17:[address] Glu mg/dL 163 mg/dL 06/05/16 08:25 Hemoglobin A1c 7.3 % (4.2-6.1) H 06/05/16 08:25 Plasma Lactic Acid Earl 0.8 mmol/L (0.7-2.0) 06/03/16 22:40 Calcium 8.8 mg/dL (8.4-10.2) 06/05/16 08:25 Phosphorus 3.4 mg/dL (2.5-4.5) 06/03/16 22:40 Magnesium 1.8 mg/dL (1.6-2.3) 06/03/16 22:40 Total Bilirubin 0.8 mg/dL (0.2-1.3) 06/05/16 08:25 AST 23 U/L (17-59) 06/05/16 08:25 ALT 29 U/L (21-72) 06/05/16 08:25 Alkaline Phosphatase 59 U/L (38-126) 06/05/16 08:25 Total Creatine Kinase 92 U/L (55-170) 06/03/16 22:40 CK-MB (CK-2) 2.1 ng/mL (0.0-2.4) 06/03/16 22:40 CK-MB (CK-2) Rel Index 2.3 06/03/16 22:40 Total Protein 6.9 g/dL (6.3-8.2) 06/05/16 08:25 Albumin 3.9 g/dL (3.5-5.0) 06/05/16 08:25 Prealbumin 15 mg/dL (18-36) L 06/05/16 08:25 Urine Color Yellow 06/03/16 23:05 Urine Appearance Clear (Clear) 06/03/16 23:05 Urine pH 5.5 (5.0-8.0) 06/03/16 23:05 Ur Specific [place] 1.018 (1.001-1.035) 06/03/16 23:05 Urine Protein Negative (Negative) 06/03/16 23:05 Urine Glucose (UA) Negative (Negative) 06/03/16 23:05 Urine Ketones Negative (Negative) 06/03/16 23:05 Urine Blood Negative (Negative) 06/03/16 23:05 Urine Nitrate Negative (Negative) 06/03/16 23:05 Urine Bilirubin Negative (Negative) 06/03/16 23:05 Urine Urobilinogen <2.0 mg/dL (<2.0) 06/03/16 23:05 Ur Leukocyte Esterase Negative (Negative) 06/03/16 23:05 Microbiology 06/04/16 18:12 Neck Gram Stain - Preliminary 06/04/16 18:12 Neck Wound Culture - Preliminary Presumptive MRSA 06/04/16 15:20 Blood Blood Culture - Preliminary No Growth after 24 hours 06/03/16 23:05 Urine,Clean Catch Urine Culture - Final 06/03/16 22:40 Blood Blood Culture - Preliminary No Growth after 24 hours Assessment and Plan (1) Neck abscess Narrative/Plan: 76-year-old male with history of diabetes mellitus type 2 had an abnormal growth on the posterior aspect of the left side of his neck. He underwent resection of this area. Apparently the margins were not clear and constantly resection was performed. Is out of evidence of an abscess at that site engrossing print material has been expressed from the area and sent to the laboratory for culture. Concerns to MRSA as well as other pathogens. Vancomycin will continue. Rocephin was also added now with presumptive MRSA can be discontinued. Culture will help further direct antibiotic therapy. Dry dressing and a place to observe the purulent drainage. Suture removal occurred and allowed some further bloody purulent drainage. Leukocytosis will be monitored. Fever has improved. Status: Acute (2) Cellulitis Status: Acute (3) Leukocytosis Status: Acute
[2016-06-05] MEDS: LORATADINE 10 MG TAB PO SCH (21:54)
[2016-06-05] MEDS: MONTELUKAST 10 MG TAB PO SCH (21:54)
[2016-06-05] MEDS: LOSARTAN-HCTZ 50-12.5 MG 1 EACH TAB PO SCH (21:54)
[2016-06-05] MEDS: DILTIAZEM CD 120 MG CAP.ER.24H PO SCH (21:54)
[2016-06-05 22:21] LABS: Glucose,Whole Blood 146 mg/dL (75-99)
[2016-06-06] MEDS ORDERED: VANCOMYCIN TROUGH DUE 1 EACH MISC MISCELLANE ONE (07:00)
[2016-06-06 07:46] LABS: Glucose,Whole Blood 151 mg/dL (75-99)
[2016-06-06] MEDS: INSULIN NPL/INSULIN LISPRO 100 UNIT/ML 10 ML VIAL (Humalog 75/25) SQ SCH ×3 (07:49→18:14)
[2016-06-06] MEDS: INSULIN LISPRO (humaLOG) 300 UNIT/3 ML VIAL SQ SCH ×5 (07:49→20:33)
[2016-06-06] MEDS: ASPIRIN 81 MG CHEW PO SCH (07:50)
[2016-06-06] MEDS: METOPROLOL TARTRATE 12.5 MG TAB PO SCH (07:50)
[2016-06-06] MEDS: ENOXAPARIN 40 MG/0.4 ML SYRINGE SQ SCH (07:50)
[2016-06-06 10:01] LABS: INR 1.4 (<1.1); Prothrombin Time 13.3 sec (9.0-12.0)
[2016-06-06 10:10] LABS: Basophils % (A) 0 %; CH 27.2; CHCM 32.8; Eosinophils # (A) 0.2 k/uL (0-0.7); Eosinophils % (A) 2 %; HCT 42.2 % (39.0-53.0); HDW 2.64; HGB 13.4 gm/dL (13.0-17.5); Luc # (Auto) 0.18; Luc % (Auto) 2; Lymphocytes # (A) 0.8 k/uL (1.0-4.8); Lymphocytes % (A) 9 %; MCH 26.5 pg (25.0-35.0); MCHC 31.8 g/dL (31.0-37.0); MCV 83.2 fL (80.0-100.0); Mean Platelet Volume 7.2; Monocytes # (A) 0.5 k/uL (0-1.0); Monocytes % (A) 6 %; Neutrophils # (A) 7.6 k/uL (1.3-7.7); Neutrophils % (A) 81 %; RBC 5.07 m/uL (4.30-5.90); RDW 13.8 % (11.5-15.5); WBC 9.4 k/uL (3.8-10.6); WBC (Perox) 9.89
[2016-06-06 10:27] LABS: Anion Gap 13 mmol/L; Blood Urea Nitrogen 16 mg/dL (9-20); Calcium 8.8 mg/dL (8.4-10.2); Carbon Dioxide 28 mmol/L (22-30); Chloride 95 mmol/L (98-107); Glucose 285 mg/dL (74-99); Non-African American GFR(MDRD) >60 (>60 ml/min/1.73 sqM); Potassium 3.9 mmol/L (3.5-5.1); Sodium 136 mmol/L (137-145)
[2016-06-06] MEDS: VANCOMYCIN 1,750 MG in SODIUM CHLORIDE 0.9% 250 ML IVPB SCH (10:33)
[2016-06-06 12:21] LABS: Glucose,Whole Blood 177 mg/dL (75-99)
[2016-06-06] MEDS: CHOLECALCIFEROL 1,000 UNIT TAB PO SCH (12:37)
[2016-06-06] MEDS: MULTIVITAMINS, THERA 1 EACH TAB PO SCH (12:38)
[2016-06-06] MEDS: ATORVASTATIN 10 MG TAB PO SCH (15:00)
[2016-06-06 17:32] LABS: Glucose,Whole Blood 186 mg/dL (75-99)
--- NOTE | 2016-06-06 17:54 | P.PN ---
Subjective Principal diagnosis: Neck cellulitis with open ulcer Patient is a 76-year-old male who presented to emergency room after having induration pain and redness in the left side of the back of his neck he had this skin lesion removed from his neck few days prior to admission he still had some sutures in his neck the area started getting warm and indurated and painful he was evaluated in the emergency room he was diagnosed was acute cellulitis and was admitted to medical floor he was started on IV antibiotics he was seen by Dr. Mcmillan for infectious disease consultation. Currently he is maintained on IV vancomycin and IV Rocephin Objective - Vital Signs Vital signs: Vital Signs Temp 99.6 F 06/06/16 15:00 Pulse 68 06/06/16 15:00 Resp 18 06/06/16 15:00 BP 136/71 06/06/16 15:00 Pulse Ox 95 06/06/16 15:00 Intake & Output 06/05/16 06/06/16 06/06/16 18:59 06:59 18:59 Intake Total 240 1040 Balance 240 1040 Intake: Intake, IV Titration 800 Amount cefTRIAXone 2,000 mg In 800 Sodium Chloride 0.9% 100 ml @ 100 mls/hr IVPB Q24H [facility] Rx#:[id number] Oral 240 240 Other: # Voids 3 1 3 # Bowel Movements 1 - Exam In general patient is alert and oriented 3 in no apparent distress HEENT head normocephalic and atraumatic Neck is supple no JVD no goiter no lymphadenopathy Chest is clear to auscultation no wheezing Cardiac exam reveals regular heart sounds no gallops no murmurs Abdomen is soft nontender no organomegaly Extremity exam reveals no edema no cyanosis or clubbing - Labs CBC & Chem 7: 06/06/16 08:57 06/06/16 08:57 Labs: Abnormal Lab Results - Last 24 Hours (Table) 06/05/16 06/06/16 06/06/16 Range/Units 22:06 07:44 08:57 Lymphocytes # (1.0-4.8) k/uL PT (9.0-12.0) sec Sodium 136 L (137-145) mmol/L Chloride 95 L (98-107) mmol/L Glucose 285 H (74-99) mg/dL POC Glucose (mg/dL) 146 H 151 H (75-99) mg/dL 06/06/16 06/06/16 06/06/16 Range/Units 08:57 08:57 12:19 Lymphocytes # 0.8 L (1.0-4.8) k/uL PT 13.3 H (9.0-12.0) sec Sodium (137-145) mmol/L Chloride (98-107) mmol/L Glucose (74-99) mg/dL POC Glucose (mg/dL) 177 H (75-99) mg/dL 06/06/16 Range/Units 17:31 Lymphocytes # (1.0-4.8) k/uL PT (9.0-12.0) sec Sodium (137-145) mmol/L Chloride (98-107) mmol/L Glucose (74-99) mg/dL POC Glucose (mg/dL) 186 H (75-99) mg/dL Microbiology - Last 24 Hours (Table) 06/04/16 18:12 Gram Stain - Final Neck Wound Culture - Final Methicillin resist S. aureus 06/04/16 15:20 Blood Culture - Preliminary Blood No Growth after 48 hours 06/03/16 22:40 Blood Culture - Preliminary Blood No Growth after 48 hours 06/03/16 23:05 Urine Culture - Final Urine,Clean Catch Assessment and Plan Plan: #1 cellulitis of the neck at this time may patient is maintained on IV vancomycin and Rocephin awaiting final culture results Will consult infectious disease #2 underlying history of paroxysmal atrial fibrillation, will resume Coumadin, patient was seen by surgery and no intervention recommended at this time #3 underlying history of coronary artery disease with coronary artery bypass graft surgery more than 20 years ago #4 for pain control will continue with IV morphine as needed Will also give [place] on a when necessary basis Will follow during this admission for medical management thank you very much
[2016-06-06] MEDS: WARFARIN 7.5 MG TAB PO SCH (18:14)
[2016-06-06 20:33] LABS: Glucose,Whole Blood 226 mg/dL (75-99)
[2016-06-06] MEDS: LORATADINE 10 MG TAB PO SCH (20:33)
[2016-06-06] MEDS: LOSARTAN-HCTZ 50-12.5 MG 1 EACH TAB PO SCH (20:33)
[2016-06-06] MEDS: MONTELUKAST 10 MG TAB PO SCH (20:33)
[2016-06-06] MEDS: DILTIAZEM CD 120 MG CAP.ER.24H PO SCH (20:33)
[2016-06-06] MEDS: VANCOMYCIN 2,000 MG in SODIUM CHLORIDE 0.9% 500 ML IVPB SCH (23:21)
--- NOTE | 2016-06-06 23:28 | P.PN ---
Subjective Principal diagnosis: Neck abscess Very pleasant 76-year-old male presents to the emergency center with ongoing pain and swelling to the posterior aspect of his neck to the left side. The patient relates that a few weeks ago he was having difficulty with the mole and consequently it was removed by his primary care physician. Apparently the pathology showed evidence of active border, and consequently further resection is been performed 1 week ago. He originally was doing relatively well but then developed evidence significant pain and swelling to the site. There is also evidence of some erythema. He was seen in the outpatient setting and was treated with Bactrim. However developed an extensive erythematous rash of his face and felt poorly. He took some Benadryl and antibiotic was switched to Augmentin. Despite that he was worsening and presented to the emergency center. Because of the extensive infection he was admitted to hospital and surgical consultation was requested. Not thought to need surgical intervention at this time and the computed tomography scan did not show evidence of an extensive abscess. Patient has less tenderness at the site. He has had fever with low-grade chill but no kade rigor. Feeling better today. Improve range of motion to the neck with drainage from yesterday Objective - Vital Signs Vital signs: Vital Signs Temp 99.6 F 06/06/16 15:00 Pulse 68 06/06/16 15:00 Resp 18 06/06/16 15:00 BP 136/71 06/06/16 15:00 Pulse Ox 95 06/06/16 15:00 Intake & Output 06/06/16 06/06/16 06/07/16 06:59 18:59 06:59 Intake Total 1040 Balance 1040 Intake: Intake, IV Titration 800 Amount cefTRIAXone 2,000 mg In 800 Sodium Chloride 0.9% 100 ml @ 100 mls/hr IVPB Q24H [facility] Rx#:[id number] Oral 240 Other: # Voids 1 3 1 - Exam HEENT: Anicteric conjunctiva are pink and moist nasal mucosa grossly intact without significant lesions, there is no thrush. Neck: The neck is supple without significant lymphadenopathy or thyromegaly. Lungs: Good bilateral air entry without significant crackles or wheezing. There is no significant bronchial sounds. There is no egophony or dullness. Heart: Regular rate and rhythm with an audible S1-S2, no S3 no S4. There is no significant murmur click or rub, PMI was nondisplaced. Abdomen: Positive bowel sounds soft and nontender without palpable masses or organomegaly. There was no guarding or rebound. Extremities: The upper extremities have excellent pulses they are symmetric, no significant petechiae or telangiectasia. No splinter hemorrhages were noted. The lower extremities are free from significant edema. The peripheral pulses were 2+ and symmetric. Neuro: Awake alert oriented to person place and time. There are no acute new gross focal sensory motor deficits. Skin patient has evidence of the surgical intervention to the posterior aspect of the left neck. Sutures remain in place. There is evidence of fluctuance. The site is manipulated and grossly purulent and blood-tinged material is easily expressed from the midpoint of the incision. There is still distinct induration especially at the midpoint of the incision. - Labs CBC & Chem 7: 06/06/16 08:57 06/06/16 08:57 Labs: Abnormal Lab Results - Last 24 Hours (Table) 06/06/16 06/06/16 06/06/16 Range/Units 07:44 08:57 08:57 Lymphocytes # 0.8 L (1.0-4.8) k/uL PT (9.0-12.0) sec Sodium 136 L (137-145) mmol/L Chloride 95 L (98-107) mmol/L Glucose 285 H (74-99) mg/dL POC Glucose (mg/dL) 151 H (75-99) mg/dL 06/06/16 06/06/16 06/06/16 Range/Units 08:57 12:19 17:31 Lymphocytes # (1.0-4.8) k/uL PT 13.3 H (9.0-12.0) sec Sodium (137-145) mmol/L Chloride (98-107) mmol/L Glucose (74-99) mg/dL POC Glucose (mg/dL) 177 H 186 H (75-99) mg/dL 06/06/16 Range/Units 20:31 Lymphocytes # (1.0-4.8) k/uL PT (9.0-12.0) sec Sodium (137-145) mmol/L Chloride (98-107) mmol/L Glucose (74-99) mg/dL POC Glucose (mg/dL) 226 H (75-99) mg/dL Microbiology - Last 24 Hours (Table) 06/04/16 18:12 Gram Stain - Final Neck Wound Culture - Final Methicillin resist S. aureus 06/04/16 15:20 Blood Culture - Preliminary Blood No Growth after 48 hours 06/03/16 22:40 Blood Culture - Preliminary Blood No Growth after 48 hours Laboratory Results WBC 9.4 k/uL (3.8-10.6) 06/06/16 08:57 RBC 5.07 m/uL (4.30-5.90) 06/06/16 08:57 Hgb 13.4 gm/dL (13.0-17.5) 06/06/16 08:57 Hct 42.2 % (39.0-53.0) 06/06/16 08:57 MCV 83.2 fL (80.0-100.0) 06/06/16 08:57 MCH 26.5 pg (25.0-35.0) 06/06/16 08:57 MCHC 31.8 g/dL (31.0-37.0) 06/06/16 08:57 RDW 13.8 % (11.5-15.5) 06/06/16 08:57 Plt Count 225 k/uL (150-450) 06/06/16 08:57 Neutrophils % 81 % 06/06/16 08:57 Lymphocytes % 9 % 06/06/16 08:57 Monocytes % 6 % 06/06/16 08:57 Eosinophils % 2 % 06/06/16 08:57 Basophils % 0 % 06/06/16 08:57 Neutrophils # 7.6 k/uL (1.3-7.7) 06/06/16 08:57 Lymphocytes # 0.8 k/uL (1.0-4.8) L 06/06/16 08:57 Monocytes # 0.5 k/uL (0-1.0) 06/06/16 08:57 Eosinophils # 0.2 k/uL (0-0.7) 06/06/16 08:57 Basophils # 0.0 k/uL (0-0.2) 06/06/16 08:57 ESR 52 mm/hr (0-15) H 06/05/16 08:25 PT 13.3 sec (9.0-12.0) H 06/06/16 08:57 INR 1.4 (<1.1) 06/06/16 08:57 APTT 25.9 sec (22.0-30.0) 06/03/16 22:40 Sodium 136 mmol/L (137-145) L 06/06/16 08:57 Potassium 3.9 mmol/L (3.5-5.1) 06/06/16 08:57 Chloride 95 mmol/L (98-107) L 06/06/16 08:57 Carbon Dioxide 28 mmol/L (22-30) 06/06/16 08:57 Anion Gap 13 mmol/L 06/06/16 08:57 BUN 16 mg/dL (9-20) 06/06/16 08:57 Creatinine 1.03 mg/dL (0.66-1.25) 06/06/16 08:57 Est GFR (MDRD) Af Amer >60 (>60 ml/min/1.73 sqM) 06/06/16 08:57 Est GFR (MDRD) Non-Af >60 (>60 ml/min/1.73 sqM) 06/06/16 08:57 Glucose 285 mg/dL (74-99) H 06/06/16 08:57 POC Glucose (mg/dL) 226 mg/dL (75-99) H 06/06/16 20:31 POC Glu [employer] LANRE Nela Ruggiero 06/06/16 20:[address] Glu mg/dL 163 mg/dL 06/05/16 08:25 Hemoglobin A1c 7.3 % (4.2-6.1) H 06/05/16 08:25 Plasma Lactic Acid Earl 0.8 mmol/L (0.7-2.0) 06/03/16 22:40 Calcium 8.8 mg/dL (8.4-10.2) 06/06/16 08:57 Phosphorus 3.4 mg/dL (2.5-4.5) 06/03/16 22:40 Magnesium 1.8 mg/dL (1.6-2.3) 06/03/16 22:40 Total Bilirubin 0.8 mg/dL (0.2-1.3) 06/05/16 08:25 AST 23 U/L (17-59) 06/05/16 08:25 ALT 29 U/L (21-72) 06/05/16 08:25 Alkaline Phosphatase 59 U/L (38-126) 06/05/16 08:25 Total Creatine Kinase 92 U/L (55-170) 06/03/16 22:40 CK-MB (CK-2) 2.1 ng/mL (0.0-2.4) 06/03/16 22:40 CK-MB (CK-2) Rel Index 2.3 06/03/16 22:40 Total Protein 6.9 g/dL (6.3-8.2) 06/05/16 08:25 Albumin 3.9 g/dL (3.5-5.0) 06/05/16 08:25 Prealbumin 15 mg/dL (18-36) L 06/05/16 08:25 Urine Color Yellow 06/03/16 23:05 Urine Appearance Clear (Clear) 06/03/16 23:05 Urine pH 5.5 (5.0-8.0) 06/03/16 23:05 Ur Specific [place] 1.018 (1.001-1.035) 06/03/16 23:05 Urine Protein Negative (Negative) 06/03/16 23:05 Urine Glucose (UA) Negative (Negative) 06/03/16 23:05 Urine Ketones Negative (Negative) 06/03/16 23:05 Urine Blood Negative (Negative) 06/03/16 23:05 Urine Nitrate Negative (Negative) 06/03/16 23:05 Urine Bilirubin Negative (Negative) 06/03/16 23:05 Urine Urobilinogen <2.0 mg/dL (<2.0) 06/03/16 23:05 Ur Leukocyte Esterase Negative (Negative) 06/03/16 23:05 Vancomycin Trough 8.5 ug/mL 06/06/16 08:57 Microbiology 06/04/16 18:12 Neck Gram Stain - Final 06/04/16 18:12 Neck Wound Culture - Final Methicillin resist S. aureus 06/04/16 15:20 Blood Blood Culture - Preliminary No Growth after 48 hours 06/03/16 22:40 Blood Blood Culture - Preliminary No Growth after 48 hours 06/03/16 23:05 Urine,Clean Catch Urine Culture - Final Assessment and Plan (1) Neck abscess Narrative/Plan: 76-year-old male with history of diabetes mellitus type 2 had an abnormal growth on the posterior aspect of the left side of his neck. He underwent resection of this area. Apparently the margins were not clear and constantly resection was performed. Is out of evidence of an abscess at that site engrossing print material has been expressed from the area and sent to the laboratory for culture. Concerns to MRSA as well as other pathogens. Vancomycin will continue. Await final culture to have the plan for his outpatient antibiotic therapy. Rocephin was also added now with presumptive MRSA can be discontinued. Culture will help further direct antibiotic therapy. Dry dressing and a place to observe the purulent drainage. Suture removal occurred and allowed some further bloody purulent drainage. Leukocytosis will be monitored. Fever has improved. Status: Acute (2) Cellulitis Status: Acute (3) Leukocytosis Status: Acute
[2016-06-07 07:09] LABS: Glucose,Whole Blood 131 mg/dL (75-99)
[2016-06-07] MEDS: ASPIRIN 81 MG CHEW PO SCH (07:38)
[2016-06-07] MEDS: INSULIN LISPRO (humaLOG) 300 UNIT/3 ML VIAL SQ SCH ×3 (07:38→17:53)
[2016-06-07] MEDS: METOPROLOL TARTRATE 12.5 MG TAB PO SCH (07:38)
[2016-06-07] MEDS: ENOXAPARIN 40 MG/0.4 ML SYRINGE SQ SCH (07:38)
[2016-06-07] MEDS: INSULIN NPL/INSULIN LISPRO 100 UNIT/ML 10 ML VIAL (Humalog 75/25) SQ SCH ×3 (07:42→17:56)
[2016-06-07 08:22] LABS: Basophils % (A) 1 %; CH 27.5; CHCM 33.6; Eosinophils # (A) 0.3 k/uL (0-0.7); Eosinophils % (A) 4 %; HCT 43.2 % (39.0-53.0); HDW 2.74; Luc # (Auto) 0.31; Luc % (Auto) 4; Lymphocytes # (A) 1.1 k/uL (1.0-4.8); Lymphocytes % (A) 14 %; MCH 26.6 pg (25.0-35.0); MCHC 32.4 g/dL (31.0-37.0); MCV 82.2 fL (80.0-100.0); Mean Platelet Volume 7.7; Monocytes # (A) 0.6 k/uL (0-1.0); Monocytes % (A) 7 %; Neutrophils # (A) 5.4 k/uL (1.3-7.7); Neutrophils % (A) 70 %; RBC 5.25 m/uL (4.30-5.90); RDW 13.7 % (11.5-15.5); WBC 7.8 k/uL (3.8-10.6); WBC (Perox) 7.58
[2016-06-07 08:28] LABS: INR 1.3 (<1.1); Prothrombin Time 12.7 sec (9.0-12.0)
[2016-06-07 08:30] LABS: ALT 29 U/L (21-72); AST 21 U/L (17-59); Alkaline Phosphatase 58 U/L (38-126); Anion Gap 13 mmol/L; Blood Urea Nitrogen 18 mg/dL (9-20); Calcium 9.1 mg/dL (8.4-10.2); Carbon Dioxide 29 mmol/L (22-30); Chloride 98 mmol/L (98-107); Glucose 140 mg/dL (74-99); Non-African American GFR(MDRD) >60 (>60 ml/min/1.73 sqM); Potassium 4.1 mmol/L (3.5-5.1); Sodium 140 mmol/L (137-145); Total Bilirubin 0.6 mg/dL (0.2-1.3); Total Protein 6.9 g/dL (6.3-8.2)
[2016-06-07 12:02] LABS: Glucose,Whole Blood 124 mg/dL (75-99)
[2016-06-07] MEDS: CHOLECALCIFEROL 1,000 UNIT TAB PO SCH (12:31)
[2016-06-07] MEDS: MULTIVITAMINS, THERA 1 EACH TAB PO SCH (12:31)
[2016-06-07] MEDS: VANCOMYCIN 2,000 MG in SODIUM CHLORIDE 0.9% 500 ML IVPB SCH (15:11)
[2016-06-07] MEDS: METOLAZONE 5 MG TAB PO SCH (15:13)
[2016-06-07 15:26] VITALS: BP 151/70; PULSE 65; RESP 16; TEMP 97.6
[2016-06-07 17:19] LABS: Glucose,Whole Blood 133 mg/dL (75-99)
--- NOTE | 2016-06-07 17:52 | P.DS ---
Providers Date of admission: 06/03/16 22:32 Expected date of discharge: 06/07/16 Attending physician: Brandon Torres Consults: 06/04/16 14:33 Consult Physician Routine Consulting Provider: Jimmy Mcmillan Consult Reason/Comments: neck cellulitis Do you want consulting provider notified?: Yes Primary care physician: [facility] Course: Patient is a 76-year-old male who presented to [facility] was pain erythema and induration in the back of his neck where he had recent excision of a skin lesion. Patient still had sutures in the area sutures were removed and copious amount of pus came out of the area culture of the purulent discharge was positive for MRSA. During this admission patient was maintained on IV vancomycin and IV Rocephin he was evaluated by Dr. Mcmillan Patient improved gradually he was cleared for discharge by Dr. Mcmillan he was given a prescription of doxycycline. Patient will follow-up with Dr. Mcmillan in the office within 1 week Continue same medication as prior to admission otherwise Patient Condition at Discharge: Fair Plan - Discharge Summary Discharge Medication List Acetaminophen [Tylenol Arthritis] 1,300 mg PO BID 06/04/16 [History] Aspirin [Adult Low Dose Aspirin EC] 81 mg PO QAM 06/04/16 [History] Cholecalciferol [Vitamin D3] 5,000 unit PO DAILY 06/04/16 [History] Diltiazem HCl 120 mg PO HS 06/04/16 [History] Insulin NPL/Insulin Lispro [humaLOG Mix 75-25 Kwikpen] 5 unit SQ AC-BID [History] Insulin NPL/Insulin Lispro [humaLOG Mix 75-25 Kwikpen] 35 - 40 unit SQ HS [History] Loratadine 10 mg PO HS 06/04/16 [History] Losartan-Hctz 50-12.5 mg [Hyzaar 50-12.5] 1 tab PO HS 06/04/16 [History] Metolazone [Zaroxolyn] 5 mg PO Q72H 06/04/16 [History] Metoprolol Tartrate [Lopressor] 12.5 mg PO QAM 06/04/16 [History] Montelukast [Singulair] 10 mg PO HS 06/04/16 [History] Multivitamins, Thera [Multivitamin] 1 tab PO DAILY 06/04/16 [History] Simvastatin [Zocor] 20 mg PO Q48H 06/04/16 [History] Vit C/E/Zinc/Lutein/Zeaxanthin [Ocuvite Eye Health Gummies] 1 tab PO DAILY 06/04 [History] Warfarin [Coumadin] 5 mg PO SUWE 06/04/16 [History] Warfarin [Coumadin] 7.5 mg PO [id number] 06/04/16 [History] Follow up Appointment(s)/Referral(s): Anisha Vines DO [Primary Care Provider] - 06/12/16 1:00 pm Jimmy Mcmillan MD [STAFF PHYSICIAN] - 1 Week Patient Instructions/Handouts: Acute Wound Care (DC) Activity/Diet/Wound Care/Special Instructions: Cardiac, diabetic diet. May shower, dry incision thoroughly and may apply clean dry dressing to neck daily.
[2016-06-07] MEDS: WARFARIN 5 MG TAB PO SCH (17:57)
--- NOTE | 2016-06-07 20:15 | P.PN ---
Subjective Principal diagnosis: Neck abscess Very pleasant 76-year-old male presents to the emergency center with ongoing pain and swelling to the posterior aspect of his neck to the left side. The patient relates that a few weeks ago he was having difficulty with the mole and consequently it was removed by his primary care physician. Apparently the pathology showed evidence of active border, and consequently further resection is been performed 1 week ago. He originally was doing relatively well but then developed evidence significant pain and swelling to the site. There is also evidence of some erythema. He was seen in the outpatient setting and was treated with Bactrim. However developed an extensive erythematous rash of his face and felt poorly. He took some Benadryl and antibiotic was switched to Augmentin. Despite that he was worsening and presented to the emergency center. Because of the extensive infection he was admitted to hospital and surgical consultation was requested. Not thought to need surgical intervention at this time and the computed tomography scan did not show evidence of an extensive abscess. Patient has less tenderness at the site. He has had fever with low-grade chill but no kade rigor. Feeling better today. Improve range of motion to the neck with the extensive drainage that occurred yesterday Objective - Vital Signs Vital signs: Vital Signs Temp 97.6 F 06/07/16 15:00 Pulse 65 06/07/16 15:00 Resp 16 06/07/16 15:00 BP 151/70 06/07/16 15:00 Pulse Ox 96 06/07/16 15:00 Intake & Output 06/07/16 06/07/16 06/08/16 06:59 18:59 06:59 Other: Voiding Method Toilet Toilet # Voids 2 3 - Exam HEENT: Anicteric conjunctiva are pink and moist nasal mucosa grossly intact without significant lesions, there is no thrush. Neck: The neck is supple without significant lymphadenopathy or thyromegaly. Lungs: Good bilateral air entry without significant crackles or wheezing. There is no significant bronchial sounds. There is no egophony or dullness. Heart: Regular rate and rhythm with an audible S1-S2, no S3 no S4. There is no significant murmur click or rub, PMI was nondisplaced. Abdomen: Positive bowel sounds soft and nontender without palpable masses or organomegaly. There was no guarding or rebound. Extremities: The upper extremities have excellent pulses they are symmetric, no significant petechiae or telangiectasia. No splinter hemorrhages were noted. The lower extremities are free from significant edema. The peripheral pulses were 2+ and symmetric. Neuro: Awake alert oriented to person place and time. There are no acute new gross focal sensory motor deficits. Skin patient has evidence of the surgical intervention to the posterior aspect of the left neck. Sutures remain in place. Yesterday was still a large amount of fluctuance in the site was then manipulated. A large amount of grossly print material was exuded yesterday. Now the site is much less swollen. There is minimal induration at the midpoint of the area. The swelling erythema and tenderness have markedly improved. Patient has excellent range of motion of his neck. - Labs CBC & Chem 7: 06/07/16 07:55 06/07/16 07:55 Labs: Abnormal Lab Results - Last 24 Hours (Table) 06/06/16 06/07/16 06/07/16 Range/Units 20:31 07:07 07:55 PT (9.0-12.0) sec Glucose 140 H (74-99) mg/dL POC Glucose (mg/dL) 226 H 131 H (75-99) mg/dL 06/07/16 06/07/16 06/07/16 Range/Units 07:55 12:01 17:17 PT 12.7 H (9.0-12.0) sec Glucose (74-99) mg/dL POC Glucose (mg/dL) 124 H 133 H (75-99) mg/dL Microbiology - Last 24 Hours (Table) 06/04/16 15:20 Blood Culture - Preliminary Blood No Growth after 72 hours 06/03/16 22:40 Blood Culture - Preliminary Blood No Growth after 72 hours 06/04/16 18:12 Gram Stain - Final Neck Wound Culture - Final Methicillin resist S. aureus Laboratory Results WBC 7.8 k/uL (3.8-10.6) 06/07/16 07:55 RBC 5.25 m/uL (4.30-5.90) 06/07/16 07:55 Hgb 14.0 gm/dL (13.0-17.5) 06/07/16 07:55 Hct 43.2 % (39.0-53.0) 06/07/16 07:55 MCV 82.2 fL (80.0-100.0) 06/07/16 07:55 MCH 26.6 pg (25.0-35.0) 06/07/16 07:55 MCHC 32.4 g/dL (31.0-37.0) 06/07/16 07:55 RDW 13.7 % (11.5-15.5) 06/07/16 07:55 Plt Count 226 k/uL (150-450) 06/07/16 07:55 Neutrophils % 70 % 06/07/16 07:55 Lymphocytes % 14 % 06/07/16 07:55 Monocytes % 7 % 06/07/16 07:55 Eosinophils % 4 % 06/07/16 07:55 Basophils % 1 % 06/07/16 07:55 Neutrophils # 5.4 k/uL (1.3-7.7) 06/07/16 07:55 Lymphocytes # 1.1 k/uL (1.0-4.8) 06/07/16 07:55 Monocytes # 0.6 k/uL (0-1.0) 06/07/16 07:55 Eosinophils # 0.3 k/uL (0-0.7) 06/07/16 07:55 Basophils # 0.0 k/uL (0-0.2) 06/07/16 07:55 ESR 52 mm/hr (0-15) H 06/05/16 08:25 PT 12.7 sec (9.0-12.0) H 06/07/16 07:55 INR 1.3 (<1.1) 06/07/16 07:55 APTT 25.9 sec (22.0-30.0) 06/03/16 22:40 Sodium 140 mmol/L (137-145) 06/07/16 07:55 Potassium 4.1 mmol/L (3.5-5.1) 06/07/16 07:55 Chloride 98 mmol/L (98-107) 06/07/16 07:55 Carbon Dioxide 29 mmol/L (22-30) 06/07/16 07:55 Anion Gap 13 mmol/L 06/07/16 07:55 BUN 18 mg/dL (9-20) 06/07/16 07:55 Creatinine 1.03 mg/dL (0.66-1.25) 06/07/16 07:55 Est GFR (MDRD) Af Amer >60 (>60 ml/min/1.73 sqM) 06/07/16 07:55 Est GFR (MDRD) Non-Af >60 (>60 ml/min/1.73 sqM) 06/07/16 07:55 Glucose 140 mg/dL (74-99) H 06/07/16 07:55 POC Glucose (mg/dL) 133 mg/dL (75-99) H 06/07/16 17:17 POC Glu [employer] Rabia Ann 06/07/16 17:[address] Glu mg/dL 163 mg/dL 06/05/16 08:25 Hemoglobin A1c 7.3 % (4.2-6.1) H 06/05/16 08:25 Plasma Lactic Acid Earl 0.8 mmol/L (0.7-2.0) 06/03/16 22:40 Calcium 9.1 mg/dL (8.4-10.2) 06/07/16 07:55 Phosphorus 3.4 mg/dL (2.5-4.5) 06/03/16 22:40 Magnesium 1.8 mg/dL (1.6-2.3) 06/03/16 22:40 Total Bilirubin 0.6 mg/dL (0.2-1.3) 06/07/16 07:55 AST 21 U/L (17-59) 06/07/16 07:55 ALT 29 U/L (21-72) 06/07/16 07:55 Alkaline Phosphatase 58 U/L (38-126) 06/07/16 07:55 Total Creatine Kinase 92 U/L (55-170) 06/03/16 22:40 CK-MB (CK-2) 2.1 ng/mL (0.0-2.4) 06/03/16 22:40 CK-MB (CK-2) Rel Index 2.3 06/03/16 22:40 Total Protein 6.9 g/dL (6.3-8.2) 06/07/16 07:55 Albumin 3.8 g/dL (3.5-5.0) 06/07/16 07:55 Prealbumin 15 mg/dL (18-36) L 06/05/16 08:25 Urine Color Yellow 06/03/16 23:05 Urine Appearance Clear (Clear) 06/03/16 23:05 Urine pH 5.5 (5.0-8.0) 06/03/16 23:05 Ur Specific [place] 1.018 (1.001-1.035) 06/03/16 23:05 Urine Protein Negative (Negative) 06/03/16 23:05 Urine Glucose (UA) Negative (Negative) 06/03/16 23:05 Urine Ketones Negative (Negative) 06/03/16 23:05 Urine Blood Negative (Negative) 06/03/16 23:05 Urine Nitrate Negative (Negative) 06/03/16 23:05 Urine Bilirubin Negative (Negative) 06/03/16 23:05 Urine Urobilinogen <2.0 mg/dL (<2.0) 06/03/16 23:05 Ur Leukocyte Esterase Negative (Negative) 06/03/16 23:05 Vancomycin Trough 8.5 ug/mL 06/06/16 08:57 Microbiology 06/04/16 15:20 Blood Blood Culture - Preliminary No Growth after 72 hours 06/03/16 22:40 Blood Blood Culture - Preliminary No Growth after 72 hours 06/04/16 18:12 Neck Gram Stain - Final 06/04/16 18:12 Neck Wound Culture - Final Methicillin resist S. aureus 06/03/16 23:05 Urine,Clean Catch Urine Culture - Final Assessment and Plan (1) Neck abscess Narrative/Plan: 76-year-old male with history of diabetes mellitus type 2 had an abnormal growth on the posterior aspect of the left side of his neck. He underwent resection of this area. Apparently the margins were not clear and constantly resection was performed. Is out of evidence of an abscess at that site engrossing print material has been expressed from the area and sent to the laboratory for culture. Concerns to MRSA as well as other pathogens. Vancomycin will continue. Await final culture to have the plan for his outpatient antibiotic therapy. Rocephin was also added now with presumptive MRSA can be discontinued. Culture will help further direct antibiotic therapy. Dry dressing and a place to observe the purulent drainage. After suture was removed a large amount of purulent material was able to be drained. The site is now considerably improved. Leukocytosis has resolved. Fever has resolved. Culture shows evidence of MRSA. Ready for discharge to home on oral doxycycline and pain control with [place]. Follow-up in the office in one week. Status: Acute (2) Cellulitis Status: Acute (3) Leukocytosis Status: Acute
== END 2016-06-07 18:51 | disposition home or self-care (01) | DRG 920 ==
LOC: EC 19:14 → 4MS4W 22:32
PROVIDERS: ADMIT Internal Medicine; ATTEND Internal Medicine
DX: L76.82 Other postprocedural complications of skin and subcutaneous tissue (principal); L02.11 Cutaneous abscess of neck; I48.0 Paroxysmal atrial fibrillation; E11.9 Type 2 diabetes mellitus without complications; L03.221 Cellulitis of neck; I10 Essential (primary) hypertension; E78.5 Hyperlipidemia, unspecified; I25.10 Atherosclerotic heart disease of native coronary artery without angina pectoris; K21.9 Gastro-esophageal reflux disease without esophagitis; Z79.82 Long term (current) use of aspirin; Z82.49 Family history of ischemic heart disease and other diseases of the circulatory system; Z87.891 Personal history of nicotine dependence; Z95.1 Presence of aortocoronary bypass graft; Z79.4 Long term (current) use of insulin; Z79.899 Other long term (current) drug therapy; Z88.2 Allergy status to sulfonamides
CPT/HCPCS: 72126; 80048; 80053; 80202; 81003; 82550; 82553; 83036; 83605; 83735; 84100; 84134; 85025; 85610; 85652; 85730; 87040; 87070; 87077; 87086; 87186; 87205; 93005; 96365; 96375; 99285

== ENCOUNTER 2016-10-27 08:48 | Day surgery (SDC) | payer MEDICARE, BC ==
[2016-10-26 09:40] VITALS: BMI 34.2
[~2016-10-27 08:48] MED LIST: LACTATED RINGERS 1,000 ML IV SCH; LIDOCAINE 1% 20 ML VIAL (10MG/ML) FOR IV START INTRADERMA PRN
[2016-10-27 10:16] VITALS: RESP 16; TEMP 98.1
[2016-10-27 10:19] LABS: Glucose,Whole Blood 124 mg/dL (75-99)
[2016-10-27] MEDS ORDERED: PROPOFOL 10 MG/ML 20 ML VIAL IV ONE (10:21)
[2016-10-27] MEDS ORDERED: fentaNYL (PF) 50 MCG/ML 2 ML AMP ONE (10:21)
[2016-10-27] MEDS ORDERED: LIDOCAINE 1% INJ 10MG/ML (20 ML MDV) ONE (10:21)
[2016-10-27] MEDS ORDERED: MIDAZOLAM 2 MG/2 ML VIAL ONE (10:21)
[2016-10-27] MEDS ORDERED: GLYCOPYRROLATE 0.2 MG/ML 2 ML VIAL ONE (10:21)
--- NOTE | 2016-10-27 10:24 | P.GSHP ---
History of Present Illness H&P Date: 10/27/16 Chief Complaint: Screening colonoscopy This is a 76-year-old male who presents today for screening colonoscopy. Patient denies any significant GI completes. Past Medical History Past Medical History: Coronary Artery Disease (CAD), Cancer, Diabetes Mellitus, GERD/Reflux, Hyperlipidemia, Hypertension, Prostate Disorder, Sleep Apnea/CPAP/ BIPAP Additional Past Medical History / Comment(s): HX PROSTATE AND Skin CA. USES CPAP. History of Any Multi-Drug Resistant Organisms: MRSA Date of last positivie culture/infection: 06/04/16 MDRO Source:: Neck Past Surgical History: Coronary Bypass/CABG, Heart Catheterization Additional Past Surgical History / Comment(s): 1994 TRIPLE Bypass. Hemorrhoid. Bilat cataract,. Hiatal hernia 2012. Fatty tumor removed 2004. COLONOSCOPY , EGD. Past Anesthesia/Blood Transfusion Reactions: No Reported Reaction Smoking Status: Former smoker - Past Family History Father Family Medical History: Congestive Heart Failure (CHF), Respiratory Disorder Medications and Allergies Home Medications Medication Instructions Recorded Confirmed Type Acetaminophen [Tylenol Arthritis] 1,300 mg PO BID 06/04/16 10/27/16 History Aspirin [Adult Low Dose Aspirin EC] 81 mg PO QAM 06/04/16 10/26/16 History Cholecalciferol [Vitamin D3] 5,000 unit PO DAILY 06/04/16 10/27/16 History Diltiazem HCl 120 mg PO HS 06/04/16 10/27/16 History Loratadine 10 mg PO HS 06/04/16 10/27/16 History Losartan-Hctz 50-12.5 mg [Hyzaar 1 tab PO HS 06/04/16 10/27/16 History 50-12.5] Metolazone [Zaroxolyn] 5 mg PO Q72H 06/04/16 10/27/16 History Metoprolol Tartrate [Lopressor] 12.5 mg PO QAM 06/04/16 10/27/16 History Montelukast [Singulair] 10 mg PO HS 06/04/16 10/27/16 History Multivitamins, Thera [Multivitamin 1 tab PO DAILY 06/04/16 10/27/16 History (formulary)] Simvastatin [Zocor] 20 mg PO Q48H 06/04/16 10/27/16 History Vit C/E/Zinc/Lutein/Zeaxanthin 1 tab PO DAILY 06/04/16 10/27/16 History [[facility] [place]] Warfarin [Coumadin] 5 mg PO SUWE 06/04/16 10/26/16 History Warfarin [Coumadin] 7.5 mg PO MOTUTHFRSA 06/04/16 10/26/16 History Insulin Degludec [Tresiba 48 unit SQ HS 10/26/16 10/27/16 History Flextouch U-100] Allergies Allergy/AdvReac Type Severity Reaction Status Date / Time Sulfa (Sulfonamide Allergy Itching Verified 10/26/16 09:15 Antibiotics) Surgical - Exam Vital Signs Temp Pulse Resp BP Pulse Ox 98.1 F 62 16 148/87 95 10/27/16 10:15 10/27/16 10:15 10/27/16 10:15 10/27/16 10:15 10/27/16 10:15 - General well developed, no distress - Eyes PERRL - ENT normal pinna - Neck no masses - Respiratory normal expansion - Cardiovascular Rhythm: regular - Abdomen Abdomen: soft, non tender Results - Labs Abnormal Lab Results - Last 24 Hours (Table) 10/27/16 Range/Units 10:16 POC Glucose (mg/dL) 124 H (75-99) mg/dL Assessment and Plan Plan: We'll perform screening colonoscopy.
--- NOTE | 2016-10-27 10:48 | P.OP ---
Date of Procedure: 10/27/16 Preoperative Diagnosis: Screening colonoscopy Postoperative Diagnosis: Right colon polyp Hepatic flexure polyp Procedure(s) Performed: Colonoscopy Implants: Anesthesia: MAC Surgeon: Nader David Pathology: other (Right colon polyp,) Condition: stable Disposition: PACU Indications for Procedure: Operative Findings: Description of Procedure: The patient's placed on the endoscopy table in the lateral position. He received IV sedation. Digital rectal exam was performed which revealed no abnormalities. The flexible colonoscope was then placed patient anus passed throughout the entire colon. The ileocecal valve was visualized. The cecum appeared normal. In the right colon there was a polyp seen this removed with a forcep. Scope was withdrawn at the hepatic flexure there was a peduncular polyp and this was removed with snare. Scope was then withdrawn remainder of the transverse colon appeared normal. In the descending; was a few scattered diverticula. There is no evidence of any diverticulitis. The scope summer back the rectum and this appeared normal. Scope was withdrawn for patient.
[2016-10-27 11:13] VITALS: BP 105/70; PULSE 54
[2016-10-27 11:20] LABS: Glucose,Whole Blood 118 mg/dL (75-99)
== END 2016-10-27 11:58 | disposition home or self-care (01) ==
LOC: ORWHC2ENDO 08:48
PROVIDERS: ATTEND Surgery
DX: Z12.11 Encounter for screening for malignant neoplasm of colon (principal); D12.3 Benign neoplasm of transverse colon; K57.30 Diverticulosis of large intestine without perforation or abscess without bleeding; Z85.46 Personal history of malignant neoplasm of prostate; Z87.19 Personal history of other diseases of the digestive system; Z87.891 Personal history of nicotine dependence; I25.10 Atherosclerotic heart disease of native coronary artery without angina pectoris; Z95.1 Presence of aortocoronary bypass graft; I10 Essential (primary) hypertension; E11.9 Type 2 diabetes mellitus without complications; Z79.4 Long term (current) use of insulin; E78.5 Hyperlipidemia, unspecified; G47.33 Obstructive sleep apnea (adult) (pediatric); Z99.89 Dependence on other enabling machines and devices; K21.9 Gastro-esophageal reflux disease without esophagitis; Z79.01 Long term (current) use of anticoagulants; Z79.82 Long term (current) use of aspirin; Z79.899 Other long term (current) drug therapy; Z88.2 Allergy status to sulfonamides
CPT/HCPCS: 88305; 45380; 45385; J2250; J2001; J3010; J2704

== ENCOUNTER 2016-12-10 21:46 | Observation (INO) | payer MEDICARE, BC ==
[~2016-12-10 21:46] MED LIST changes: -LACTATED RINGERS 1,000 ML IV SCH; -LIDOCAINE 1% 20 ML VIAL (10MG/ML) FOR IV START INTRADERMA PRN; +WARFARIN 5 MG TAB PO SCH
[2016-12-10 22:46] LABS: Basophils % (A) 0 %; CH 28.2; CHCM 34.6; Eosinophils # (A) 0.2 k/uL (0-0.7); Eosinophils % (A) 2 %; HCT 42.3 % (39.0-53.0); HDW 2.65; HGB 14.3 gm/dL (13.0-17.5); Luc # (Auto) 0.24; Luc % (Auto) 3; Lymphocytes # (A) 1.2 k/uL (1.0-4.8); Lymphocytes % (A) 14 %; MCH 27.7 pg (25.0-35.0); MCHC 33.8 g/dL (31.0-37.0); MCV 82.1 fL (80.0-100.0); Mean Platelet Volume 8.3; Monocytes # (A) 0.6 k/uL (0-1.0); Monocytes % (A) 7 %; Neutrophils # (A) 6.7 k/uL (1.3-7.7); Neutrophils % (A) 74 %; RBC 5.15 m/uL (4.30-5.90); RDW 14.7 % (11.5-15.5); WBC 9.1 k/uL (3.8-10.6); WBC (Perox) 8.66
[2016-12-10 22:54] LABS: ALT 28 U/L (21-72); AST 23 U/L (17-59); Alkaline Phosphatase 60 U/L (38-126); Anion Gap 14 mmol/L; Blood Urea Nitrogen 24 mg/dL (9-20); Calcium 9.3 mg/dL (8.4-10.2); Carbon Dioxide 27 mmol/L (22-30); Chloride 97 mmol/L (98-107); Glucose 117 mg/dL (74-99); Magnesium 1.9 mg/dL (1.6-2.3); Non-African American GFR(MDRD) 59 (>60 ml/min/1.73 sqM); Sodium 138 mmol/L (137-145); Total Bilirubin 0.5 mg/dL (0.2-1.3); Total Protein 7.4 g/dL (6.3-8.2)
[2016-12-10 22:57] LABS: INR 1.9 (<1.2); Partial Thromboplastin Time 30.4 sec (22.0-30.0); Prothrombin Time 17.9 sec (9.0-12.0)
--- NOTE | 2016-12-10 23:07 | XR ---
EXAM: XR Chest, 2 Views CLINICAL HISTORY: Reason: Chest Pain TECHNIQUE: Frontal and lateral views of the chest. COMPARISON: No relevant prior studies available. FINDINGS: Lungs: Left base subsegmental atelectasis. Pleural space: Unremarkable. No pneumothorax. Heart: CABG changes noted. Mediastinum: Unremarkable. Bones/joints: Unremarkable. IMPRESSION: No acute findings.
[2016-12-10 23:09] LABS: Creatine Kinase 125 U/L (55-170)
[2016-12-10 23:22] LABS: Troponin I <0.012 ng/mL (0.000-0.034)
[2016-12-10 23:35] LABS: Creatine Kinase MB 2.5 ng/mL (0.0-2.4)
[2016-12-10] MEDS ORDERED: ATORVASTATIN 10 MG TAB PO SCH (23:45)
[2016-12-10] MEDS ORDERED: METOLAZONE 5 MG TAB PO SCH (23:45)
[2016-12-10] MEDS ORDERED: NALOXONE 0.4 MG/ML 1 ML VIAL IV PRN (23:49)
[2016-12-10] MEDS ORDERED: ACETAMINOPHEN TAB 325 MG TAB PO PRN (23:49)
[2016-12-10] MEDS ORDERED: ONDANSETRON 4 MG/2 ML VIAL IVP PRN (23:49)
[2016-12-10] MEDS ORDERED: MORPHINE SULFATE 4 MG/ML SYRINGE IV PRN (23:49)
--- NOTE | 2016-12-10 23:59 | ED ---
General Adult HPI - General Chief complaint: Arrhythmia/Palpitations Stated complaint: flush feeling; heavy chest feeling Time Seen by Provider: 12/10/16 21:56 Source: patient, family, RN notes reviewed Mode of arrival: ambulatory Limitations: no limitations - History of Present Illness Initial comments: 76 yo male with history of coronary artery disease status post bypass graft in 1994 and hypertension as well as atrial fibrillation Coumadin presents with generalized fatigue after mowing the lawn. Patient denied chest pain while cutting the lawn. States that while recovering. He had some minimal chest tightness. This was nonradiating. Was associated with shortness of breath. There is no nausea or vomiting. Patient did have some diaphoresis. He also reports an episode of profound diaphoresis several days ago which was not associated with chest pain. Patient is also had some lightheadedness. Denies fever or chills. Denies abdominal pain. Denies nausea vomiting or diarrhea. - Related Data Home Medications Medication Instructions Recorded Confirmed Acetaminophen [Tylenol Arthritis] 1,300 mg PO BID 06/04/16 12/10/16 Aspirin [Adult Low Dose Aspirin EC] 81 mg PO QAM 06/04/16 12/10/16 Cholecalciferol [Vitamin D3] 5,000 unit PO DAILY 06/04/16 12/10/16 Diltiazem HCl 120 mg PO HS 06/04/16 12/10/16 Loratadine 10 mg PO HS 06/04/16 12/10/16 Losartan-Hctz 50-12.5 mg [Hyzaar 1 tab PO HS 06/04/16 12/10/16 50-12.5] Metolazone [Zaroxolyn] 5 mg PO Q72H 06/04/16 12/10/16 Montelukast [Singulair] 10 mg PO DAILY 06/04/16 12/10/16 Simvastatin [Zocor] 20 mg PO Q48H 06/04/16 12/10/16 Vit C/E/Zinc/Lutein/Zeaxanthin 1 tab PO DAILY 06/04/16 12/10/16 [[facility]] Warfarin [Coumadin] 5 mg PO SUWE 06/04/16 12/10/16 Warfarin [Coumadin] 7.5 mg PO MOTUTHFRSA 06/04/16 12/10/16 Insulin Degludec [Tresiba 48 unit SQ HS 07/06/17 08/20/17 Flextouch U-100] Insulin Aspart [NovoLOG] 3 - 4 unit SQ AC-TID 12/10/16 12/10/16 Metoprolol Tartrate [Lopressor] 12.5 mg PO DAILY 12/10/16 12/10/16 Multivit-Min/FA/Lycopen/Lutein 1 tab PO DAILY 12/10/16 12/10/16 [Centrum Silver Men Tablet] Allergies Allergy/AdvReac Type Severity Reaction Status Date / Time Sulfa (Sulfonamide Allergy Itching Verified 12/10/16 22:23 Antibiotics) Review of Systems ROS Statement: Those systems with pertinent positive or pertinent negative responses have been documented in the HPI. ROS Other: All systems not noted in ROS Statement are negative. Past Medical History Past Medical History: Coronary Artery Disease (CAD), Cancer, Diabetes Mellitus, GERD/Reflux, Hyperlipidemia, Hypertension, Prostate Disorder, Sleep Apnea/CPAP/ BIPAP Additional Past Medical History / Comment(s): HX PROSTATE AND Skin CA. USES CPAP. History of Any Multi-Drug Resistant Organisms: MRSA Date of last positivie culture/infection: 06/04/16 MDRO Source:: Neck Past Surgical History: Coronary Bypass/CABG, Heart Catheterization Additional Past Surgical History / Comment(s): 1994 TRIPLE Bypass. Hemorrhoid. Bilat cataract,. Hiatal hernia 2012. Fatty tumor removed 2004. COLONOSCOPY , EGD. Past Anesthesia/Blood Transfusion Reactions: No Reported Reaction Past Psychological History: No Psychological Hx Reported Smoking Status: Former smoker Past Alcohol Use History: None Reported Past Drug Use History: None Reported - Past Family History Father Family Medical History: Congestive Heart Failure (CHF), Respiratory Disorder General Exam Limitations: no limitations General appearance: alert, in no apparent distress Head exam: Present: atraumatic, normocephalic Eye exam: Present: normal appearance, PERRL ENT exam: Present: normal exam, mucous membranes moist Neck exam: Present: normal inspection. Absent: tenderness, meningismus Respiratory exam: Present: normal lung sounds bilaterally, respiratory distress Cardiovascular Exam: Present: regular rate, normal rhythm GI/Abdominal exam: Present: soft. Absent: distended, tenderness, guarding Extremities exam: Present: normal inspection, normal capillary refill. Absent: pedal edema Neurological exam: Present: alert, oriented X3, CN II-XII intact. Absent: motor sensory deficit Psychiatric exam: Present: normal affect, normal mood Skin exam: Present: warm, dry. Absent: cyanosis, diaphoretic Course Vital Signs 12/10/16 21:49 Temperature 98.6 F Pulse Rate 68 Respiratory 18 Rate Blood Pressure 151/68 O2 Sat by Pulse 96 Oximetry - Reevaluation(s) Reevaluation #1: 12/10/16 23:56 Patient remains chest pain-free and asymptomatic on emergency department EKG Findings - EKG Comments: EKG Findings:: EKG shows sinus rhythm with first-degree AV block, ventricular rate of 63, IN interval 226, QRS duration 86, QTC 384, there is no ST segment elevation or depression, no T-wave abnormality. Medical Decision Making - Medical Decision Making 76 male presents with decreased exercise tolerance and chest tightness. Chest tightness is resolved at this time. There was some associated diaphoresis, no other symptoms reported.. Was nonradiating. He is on Coumadin for atrial fibrillation. Does have a history of coronary artery bypass graft in 1994. Chest x-ray shows no acute process, laboratory studies including CBC, CMP, and cardiac enzymes are unremarkable. Patient is chest pain-free while in the emergency department. EKG is nonischemic Patient will be placed in observation for cardiology evaluation. Patient and his family members are agreeable with this plan. Diagnosis: Chest pain and fatigue - Lab Data Result diagrams: 12/10/16 22:30 12/10/16 22:30 Lab Results 12/10/16 12/10/16 12/10/16 Range/Units 22:30 22:30 22:30 WBC 9.1 (3.8-10.6) k/uL RBC 5.15 (4.30-5.90) m/uL Hgb 14.3 (13.0-17.5) gm/dL Hct 42.3 (39.0-53.0) % MCV 82.1 (80.0-100.0) fL MCH 27.7 (25.0-35.0) pg MCHC 33.8 (31.0-37.0) g/dL RDW 14.7 (11.5-15.5) % Plt Count 169 (150-450) k/uL Neutrophils % 74 % Lymphocytes % 14 % Monocytes % 7 % Eosinophils % 2 % Basophils % 0 % Neutrophils # 6.7 (1.3-7.7) k/uL Lymphocytes # 1.2 (1.0-4.8) k/uL Monocytes # 0.6 (0-1.0) k/uL Eosinophils # 0.2 (0-0.7) k/uL Basophils # 0.0 (0-0.2) k/uL PT (9.0-12.0) sec INR (<1.2) APTT (22.0-30.0) sec Sodium 138 (137-145) mmol/L Potassium 4.0 (3.5-5.1) mmol/L Chloride 97 L (98-107) mmol/L Carbon Dioxide 27 (22-30) mmol/L Anion Gap 14 mmol/L BUN 24 H (9-20) mg/dL Creatinine 1.20 (0.66-1.25) mg/dL Est GFR (MDRD) Af Amer >60 (>60 ml/min/1.73 sqM) Est GFR (MDRD) Non-Af 59 (>60 ml/min/1.73 sqM) Glucose 117 H (74-99) mg/dL Calcium 9.3 (8.4-10.2) mg/dL Magnesium 1.9 (1.6-2.3) mg/dL Total Bilirubin 0.5 (0.2-1.3) mg/dL AST 23 (17-59) U/L ALT 28 (21-72) U/L Alkaline Phosphatase 60 (38-126) U/L Total Creatine Kinase 125 (55-170) U/L CK-MB (CK-2) 2.5 H* (0.0-2.4) ng/mL CK-MB (CK-2) Rel Index 2.0 Troponin I <0.012 (0.000-0.034) ng/mL NT-Pro-B Natriuret Pep pg/mL Total Protein 7.4 (6.3-8.2) g/dL Albumin 4.5 (3.5-5.0) g/dL 12/10/16 12/10/16 Range/Units 22:30 22:30 WBC (3.8-10.6) k/uL RBC (4.30-5.90) m/uL Hgb (13.0-17.5) gm/dL Hct (39.0-53.0) % MCV (80.0-100.0) fL MCH (25.0-35.0) pg MCHC (31.0-37.0) g/dL RDW (11.5-15.5) % Plt Count (150-450) k/uL Neutrophils % % Lymphocytes % % Monocytes % % Eosinophils % % Basophils % % Neutrophils # (1.3-7.7) k/uL Lymphocytes # (1.0-4.8) k/uL Monocytes # (0-1.0) k/uL Eosinophils # (0-0.7) k/uL Basophils # (0-0.2) k/uL PT 17.9 H (9.0-12.0) sec INR 1.9 H (<1.2) APTT 30.4 H (22.0-30.0) sec Sodium (137-145) mmol/L Potassium (3.5-5.1) mmol/L Chloride (98-107) mmol/L Carbon Dioxide (22-30) mmol/L Anion Gap mmol/L BUN (9-20) mg/dL Creatinine (0.66-1.25) mg/dL Est GFR (MDRD) Af Amer (>60 ml/min/1.73 sqM) Est GFR (MDRD) Non-Af (>60 ml/min/1.73 sqM) Glucose (74-99) mg/dL Calcium (8.4-10.2) mg/dL Magnesium (1.6-2.3) mg/dL Total Bilirubin (0.2-1.3) mg/dL AST (17-59) U/L ALT (21-72) U/L Alkaline Phosphatase (38-126) U/L Total Creatine Kinase (55-170) U/L CK-MB (CK-2) (0.0-2.4) ng/mL CK-MB (CK-2) Rel Index Troponin I (0.000-0.034) ng/mL NT-Pro-B Natriuret Pep 133 pg/mL Total Protein (6.3-8.2) g/dL Albumin (3.5-5.0) g/dL Disposition Clinical Impression: Chest pain Disposition: ADMITTED IP TO THIS HOSP Condition: Stable Referrals: Anisha Vines DO [Primary Care Provider] - 1-2 days Decision to Admit Reason: Admit from EC Decision Date: 12/10/16 Decision Time: 23:59
[2016-12-11] MEDS: SODIUM CHLORIDE 0.9% 1,000 ML IV SCH ×2 (00:03→14:23)
[2016-12-11 01:04] VITALS: BMI 34.5
[2016-12-11] MEDS ORDERED: DILTIAZEM CD 120 MG CAP.ER.24H PO ONE (01:14)
[2016-12-11] MEDS ORDERED: LOSARTAN-HCTZ 50-12.5 MG 1 EACH TAB PO ONE (01:18)
[2016-12-11] MEDS ORDERED: INSULIN GLARGINE 100 UNIT/ML 10 ML VIAL SQ ONE (01:19)
[2016-12-11 02:13] LABS: Glucose,Whole Blood 108 mg/dL (75-99)
[2016-12-11 04:53] LABS: Creatine Kinase 104 U/L (55-170)
[2016-12-11 05:07] LABS: Creatine Kinase MB 2.3 ng/mL (0.0-2.4); Troponin I <0.012 ng/mL (0.000-0.034)
[2016-12-11 07:30] LABS: Glucose,Whole Blood 85 mg/dL (75-99)
[2016-12-11] MEDS ORDERED: ASPIRIN 81 MG CHEW PO SCH (09:00)
[2016-12-11] MEDS ORDERED: METOPROLOL TARTRATE 12.5 MG TAB PO SCH (09:00)
[2016-12-11 10:35] LABS: Creatine Kinase 91 U/L (55-170)
[2016-12-11 10:37] LABS: INR 1.7 (<1.2); Prothrombin Time 16.7 sec (9.0-12.0)
[2016-12-11 10:46] LABS: Creatine Kinase MB 1.9 ng/mL (0.0-2.4); Troponin I <0.012 ng/mL (0.000-0.034)
--- NOTE | 2016-12-11 11:18 | P.HPIM ---
History of Present Illness H&P Date: 12/11/16 Chief Complaint: Chest tightness This is a 76-year-old man, patient of Dr. Antonio. He has a known past medical history of coronary artery disease with triple-vessel bypass surgery in 1994, hypertension, atrial fibrillation on Coumadin, diabetes mellitus and obstructive sleep apnea. He also has a history of being a former smoker. Patient presents to the emergency room with complaints of chest tightness and fatigue after mowing the lawn. Patient reports that usually only cuts about half of his lawn yesterday since it was cooler he cuts the full yard. He noted an increase in chest tightness with some shortness of breath and an episode of diaphoresis. The chest tightness is been intermittent. There is no radiation down into the arms or up into the neck. He denies any nausea or vomiting. Patient reports she was also had had a severe episode of diaphoresis about a week ago after working on a project. His last heart catheterization was about 5 years ago and was negative. Chest x-rays negative. EKG showing a normal sinus rhythm with a first-degree AV block and troponins are negative 2. Patient has been admitted to the observation unit and cardiology has been consulted. Patient denies any fever or chills. Denies any cough. Denies any nausea or vomiting. Denies any bowel movement changes or urinary symptoms. Review of Systems Please refer to HPI otherwise unremarkable Past Medical History Past Medical History: Coronary Artery Disease (CAD), Cancer, Diabetes Mellitus, GERD/Reflux, Hyperlipidemia, Hypertension, Prostate Disorder, Sleep Apnea/CPAP/ BIPAP Additional Past Medical History / Comment(s): HX PROSTATE AND Skin CA. USES CPAP. History of Any Multi-Drug Resistant Organisms: MRSA Date of last positivie culture/infection: 06/04/16 MDRO Source:: Neck Past Surgical History: Coronary Bypass/CABG, Heart Catheterization Additional Past Surgical History / Comment(s): 1994 TRIPLE Bypass. Hemorrhoid. Bilat cataract,. Hiatal hernia 2012. Fatty tumor removed 2004. COLONOSCOPY , EGD, Cataract removal. Past Anesthesia/Blood Transfusion Reactions: No Reported Reaction Past Psychological History: No Psychological Hx Reported Additional Psychological History / Comment(s): . 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 History of tobacco use stopped years ago. No severe alcohol use. No recreational drug use. Pet dog Smoking Status: Former smoker Past Alcohol Use History: None Reported Additional Past Alcohol Use History / Comment(s): SMOKED 20 YEARS, 2 PPD, QUIT 1986 Past Drug Use History: None Reported - Past Family History Father Family Medical History: Congestive Heart Failure (CHF), Respiratory Disorder Medications and Allergies Home Medications Medication Instructions Recorded Confirmed Type Acetaminophen [Tylenol Arthritis] 1,300 mg PO BID 06/04/16 12/10/16 History Aspirin [Adult Low Dose Aspirin EC] 81 mg PO QAM 06/04/16 12/10/16 History Cholecalciferol [Vitamin D3] 5,000 unit PO DAILY 06/04/16 12/10/16 History Diltiazem HCl 120 mg PO HS 06/04/16 12/10/16 History Loratadine 10 mg PO HS 06/04/16 12/10/16 History Losartan-Hctz 50-12.5 mg [Hyzaar 1 tab PO HS 06/04/16 12/10/16 History 50-12.5] Metolazone [Zaroxolyn] 5 mg PO Q72H 06/04/16 12/10/16 History Montelukast [Singulair] 10 mg PO DAILY 06/04/16 12/10/16 History Simvastatin [Zocor] 20 mg PO Q48H 06/04/16 12/10/16 History Vit C/E/Zinc/Lutein/Zeaxanthin 1 tab PO DAILY 06/04/16 12/10/16 History [[facility]] Warfarin [Coumadin] 5 mg PO SUWE 06/04/16 12/10/16 History Warfarin [Coumadin] 7.5 mg PO MOTUTHFRSA 06/04/16 12/10/16 History Insulin Degludec [Tresiba 48 unit SQ HS 10/26/16 12/10/16 History Flextouch U-100] Insulin Aspart [NovoLOG] 3 - 4 unit SQ AC-TID 12/10/16 12/10/16 History Metoprolol Tartrate [Lopressor] 12.5 mg PO DAILY 12/10/16 12/10/16 History Multivit-Min/FA/Lycopen/Lutein 1 tab PO DAILY 12/10/16 12/10/16 History [Centrum Silver Men Tablet] Allergies Allergy/AdvReac Type Severity Reaction Status Date / Time Sulfa (Sulfonamide Allergy Itching Verified 12/10/16 22:23 Antibiotics) Physical Exam Vitals: Vital Signs Temp Pulse Pulse Resp BP BP Pulse Ox 12/11/16 08:00 97.4 F L 65 16 124/69 96 12/11/16 04:00 98.5 F 69 18 142/70 95 12/11/16 00:31 97.7 F 62 16 139/64 95 12/11/16 00:10 66 17 140/74 95 12/10/16 21:49 98.6 F 68 18 151/68 96 Intake and Output 12/10/16 12/11/16 12/11/16 22:59 06:59 14:59 Other: Weight 106.141 kg 106.141 kg Head normocephalic Neck supple Lungs clear to auscultation bilaterally no wheezing or crackles Heart regular rate and rhythm S1-S2, no rub or gallop Abdomen is soft nontender nondistended positive bowel sounds no hepatosplenomegaly Extremities no edema Neuro alert and orientated to 3 Results CBC & Chem 7: 12/10/16 22:30 12/10/16 22:30 Labs: Abnormal Lab Results - Last 24 Hours (Table) 12/10/16 12/10/16 12/10/16 Range/Units 22:30 22:30 22:30 PT 17.9 H (9.0-12.0) sec INR 1.9 H (<1.2) APTT 30.4 H (22.0-30.0) sec Chloride 97 L (98-107) mmol/L BUN 24 H (9-20) mg/dL Glucose 117 H (74-99) mg/dL POC Glucose (mg/dL) (75-99) mg/dL CK-MB (CK-2) 2.5 H* (0.0-2.4) ng/mL 12/11/16 12/11/16 Range/Units 02:01 09:43 PT 16.7 H (9.0-12.0) sec INR 1.7 H (<1.2) APTT 31.0 H (22.0-30.0) sec Chloride (98-107) mmol/L BUN (9-20) mg/dL Glucose (74-99) mg/dL POC Glucose (mg/dL) 108 H (75-99) mg/dL CK-MB (CK-2) (0.0-2.4) ng/mL Thrombosis Risk Factor Assmnt - Choose All That Apply Each Risk Factor Represents 3 Points: Age 75 years or older Thrombosis Risk Factor Assessment Total Risk Factor Score: 3 Thrombosis Risk Factor Assessment Level: Moderate Risk Assessment and Plan Plan: 1. Chest tightness with shortness of breath, diaphoresis and fatigue: Cardiac workup in progress. Cardiology consulted. EKG showing a normal sinus rhythm with first-degree AV block, troponins negative 2 and chest x-ray negative. 2. History of coronary artery disease with previous triple vessel coronary bypass grafting in 1994 3. Essential hypertension 4. Atrial fibrillation currently in sinus rhythm on Coumadin for anticoagulation. INR subtherapeutic at 1.7. Patient will receive Coumadin 7.5 mg tonight 5. Diabetes mellitus type 2: Continue Lantus. Add sliding scale coverage. Low blood sugar this morning likely related to nothing by mouth status Time with Patient: Greater than 30 (Greater than 50% of the total time spent in counseling and coordination of care.I performed an examination of the patient and discussed their management with the physician Shredder Tender Peat. I have reviewed the Physician Shredder Tender Peat's notes and agree with the documented findings and plan of care)
[2016-12-11] MEDS ORDERED: ALPRAZolam 0.25 MG TAB PO PRN (11:52)
[2016-12-11] MEDS ORDERED: ALPRAZolam 0.5 MG TAB PO PRN (11:52)
[2016-12-11] MEDS ORDERED: ATORVASTATIN 80 MG TAB PO STA (11:52)
[2016-12-11] MEDS ORDERED: NITROGLYCERIN SL TABS 0.4 MG TAB SUBLINGUAL PRN (11:52)
[2016-12-11] MEDS ORDERED: SODIUM CHLORIDE 0.9% 1,000 ML in EMPTY BAG 1 BAG IV ONE (11:52)
[2016-12-11] MEDS ORDERED: ASPIRIN 325 MG TAB PO STA (11:52)
[2016-12-11] MEDS ORDERED: LIDOCAINE 2% INJ 20 MG/ML (20 ML MDV) ONE (11:53)
[2016-12-11] MEDS ORDERED: diphenhydrAMINE 50 MG/ML 1 ML VIAL ONE (11:53)
[2016-12-11] MEDS ORDERED: fentaNYL (PF) 50 MCG/ML 2 ML AMP ONE (11:53)
[2016-12-11] MEDS ORDERED: IV FLUID CONTINUATION 1,000 ML IV ONE ×2 (12:02)
[2016-12-11] MEDS ORDERED: ASPIRIN 325 MG TAB PO ONE (12:05)
[2016-12-11] MEDS ORDERED: fentaNYL (PF) 50 MCG/ML 2 ML AMP IV ONE (12:13)
[2016-12-11] MEDS ORDERED: diphenhydrAMINE 50 MG/ML 1 ML VIAL IVP ONE (12:13)
[2016-12-11] MEDS ORDERED: LIDOCAINE 2% INJ 20 MG/ML SQ ONE (12:14)
[2016-12-11] MEDS ORDERED: IODIXANOL 320 MG/ML 100 ML INTRAARTER ONE (12:35)
[2016-12-11] MEDS ORDERED: RX INFO: IV CONTRAST WAS GIVEN 1 EACH MISC MISCELLANE PRN (12:48)
[2016-12-11] MEDS ORDERED: SODIUM CHLORIDE 0.9% 1,000 ML IV SCH (13:00)
[2016-12-11] MEDS: INSULIN LISPRO (humaLOG) 300 UNIT/3 ML VIAL SQ SCH ×2 (14:22→19:08)
[2016-12-11 14:39] LABS: Hemoglobin A1C 7.3 % (4.2-6.1)
--- NOTE | 2016-12-11 16:10 | P.DS ---
Providers Date of admission: 12/10/16 23:49 Expected date of discharge: 12/11/16 Attending physician: Jenise Gillespie Consults: 12/10/16 23:50 Consult Physician Urgent Consulting Provider: Jenna Ruiz Consult Reason/Comments: Chest pain Do you want consulting provider notified?: Yes, Notify in am Primary care physician: Anisha Vines [facility] Course: Discharge diagnosis 1. Chest tightness with shortness of breath, diaphoresis and fatigue: Cardiac workup in progress. Cardiology consulted. EKG showing a normal sinus rhythm with first-degree AV block, troponins negative 2 and chest x-ray negative. Status post heart catheterization showing normal coronary arteries. Cardiology has cleared patient for discharge. They are recommending medical management. OK ruled out 2. History of coronary artery disease with previous triple vessel coronary bypass grafting in 1994 3. Essential hypertension 4. Atrial fibrillation currently in sinus rhythm on Coumadin for anticoagulation. INR subtherapeutic at 1.7. Patient will receive Coumadin 7.5 mg tonight 5. Diabetes mellitus type 2: Continue Lantus. Add sliding scale coverage. Low blood sugar this morning likely related to nothing by mouth status Hospital course This is a 76-year-old man, patient of Dr. Vines. He has a known past medical history of coronary artery disease with triple-vessel bypass surgery in 1994, hypertension, atrial fibrillation on Coumadin, diabetes mellitus and obstructive sleep apnea. He also has a history of being a former smoker. Patient presents to the emergency room with complaints of chest tightness and fatigue after mowing the lawn. Patient reports that usually only cuts about half of his lawn yesterday since it was cooler he cuts the full yard. He noted an increase in chest tightness with some shortness of breath and an episode of diaphoresis. The chest tightness is been intermittent. There is no radiation down into the arms or up into the neck. He denies any nausea or vomiting. Patient reports she was also had had a severe episode of diaphoresis about a week ago after working on a project. His last heart catheterization was about 5 years ago and was negative. Chest x-rays negative. EKG showing a normal sinus rhythm with a first-degree AV block and troponins are negative 2. Patient has been admitted to the observation unit and cardiology has been consulted. Patient was seen evaluated by cardiology. OK was ruled out. Patient underwent a heart catheterization this morning showing normal coronary arteries. Cardiology recommended medical management and patient could be discharged home. I performed an examination of the patient and discussed their management with the physician Motor Adjuster. I have reviewed the Physician Motor Adjuster's notes and agree with the documented findings and plan of care Patient Condition at Discharge: Stable Plan - Discharge Summary New Discharge Prescriptions: Continue Warfarin [Coumadin] 5 mg PO SUWE Montelukast [Singulair] 10 mg PO DAILY Losartan-Hctz 50-12.5 mg [Hyzaar 50-12.5] 1 tab PO HS Vit C/E/Zinc/Lutein/Zeaxanthin [[email or web address]] 1 tab PO DAILY Metolazone [Zaroxolyn] 5 mg PO Q72H Loratadine 10 mg PO HS Aspirin [Adult Low Dose Aspirin EC] 81 mg PO QAM Simvastatin [Zocor] 20 mg PO Q48H Acetaminophen [Tylenol Arthritis] 1,300 mg PO BID Cholecalciferol [Vitamin D3] 5,000 unit PO DAILY Warfarin [Coumadin] 7.5 mg PO MOTUTHFRSA Diltiazem HCl 120 mg PO HS Insulin Degludec [Tresiba Flextouch U-100] 48 unit SQ HS Metoprolol Tartrate [Lopressor] 12.5 mg PO DAILY Multivit-Min/FA/Lycopen/Lutein [Centrum Silver Men Tablet] 1 tab PO DAILY Insulin Aspart [NovoLOG] 3 - 4 unit SQ AC-TID Discharge Medication List Acetaminophen [Tylenol Arthritis] 1,300 mg PO BID 06/04/16 [History] Aspirin [Adult Low Dose Aspirin EC] 81 mg PO QAM 06/04/16 [History] Cholecalciferol [Vitamin D3] 5,000 unit PO DAILY 06/04/16 [History] Diltiazem HCl 120 mg PO HS 06/04/16 [History] Loratadine 10 mg PO HS 06/04/16 [History] Losartan-Hctz 50-12.5 mg [Hyzaar 50-12.5] 1 tab PO HS 06/04/16 [History] Metolazone [Zaroxolyn] 5 mg PO Q72H 06/04/16 [History] Montelukast [Singulair] 10 mg PO DAILY 06/04/16 [History] Simvastatin [Zocor] 20 mg PO Q48H 06/04/16 [History] Vit C/E/Zinc/Lutein/Zeaxanthin [[facility]] 1 tab PO DAILY 06/04 [History] Warfarin [Coumadin] 5 mg PO SUWE 06/04/16 [History] Warfarin [Coumadin] 7.5 mg PO MOTUTHFRSA 06/04/16 [History] Insulin Degludec [Tresiba Flextouch U-100] 48 unit SQ HS 10/26/16 [History] Insulin Aspart [NovoLOG] 3 - 4 unit SQ AC-TID 12/10/16 [History] Metoprolol Tartrate [Lopressor] 12.5 mg PO DAILY 12/10/16 [History] Multivit-Min/FA/Lycopen/Lutein [Centrum Silver Men Tablet] 1 tab PO DAILY [History] Follow up Appointment(s)/Referral(s): Jyothi Woo MD [STAFF PHYSICIAN] - 1 Week ([facility] will contact patient with appointment date and time for follow-up groin check.) Anisha Vines DO [Primary Care Provider] - 1 Week Activity/Diet/Wound Care/Special Instructions: Diet: cardiac, diabetic Activity: as tolerated Discharge Disposition: HOME SELF-CARE
[2016-12-11 17:23] LABS: Glucose,Whole Blood 145 mg/dL (75-99)
[2016-12-11] MEDS ORDERED: WARFARIN 7.5 MG TAB PO SCH (18:00)
[2016-12-11 19:27] VITALS: BP 124/68; PULSE 64; RESP 16; TEMP 98.6
[2016-12-11] MEDS ORDERED: LORATADINE 10 MG TAB PO SCH (21:00)
[2016-12-11] MEDS ORDERED: LOSARTAN-HCTZ 50-12.5 MG 1 EACH TAB PO SCH (21:00)
[2016-12-11] MEDS ORDERED: INSULIN GLARGINE 100 UNIT/ML 10 ML VIAL SQ SCH (21:00)
[2016-12-11] MEDS ORDERED: DILTIAZEM CD 120 MG CAP.ER.24H PO SCH (21:00)
--- NOTE | 2016-12-12 08:44 | CC ---
Mr. Clements is a 76-year-old male with known history of hypertension, hyperlipidemia and diabetes as well as prior history of coronary artery bypass grafting who presented with symptoms of dyspnea and progressive fatigue. His cardiac enzymes and EKG did not show any significant abnormality. He was evaluated by Dr. Onofre and recommendation was made regarding cardiac catheterization. The procedure as well as the risks and the complications were discussed with the patient who is in full understanding and agreement. PROCEDURE: Patient was brought to the labor trainer in fasting semi-sedated state after receiving fentanyl and Benadryl and obtaining moderate conscious sedative state. Using Xylocaine anesthesia in the Seldinger technique, a 6 Palauan sheath was introduced in the right femoral artery. Selective right and left coronary angiography performed using 6 Palauan, 4 bend right and left Joanna catheter. Multiple views of the coronary artery, including hemiaxial views were obtained. The 6 Palauan right Joanna catheter was used to cannulate the saphenous vein graft that was ONEILL to LAD. Images of the graft were obtained. Following that, a 6 Palauan tight pigtail catheter was introduced in the left ventricle and a 30 - degree YAP view of the left ventricle was obtained. Following that, catheter and sheath were removed. Hemostasis was obtained with compression of the right groin. There were no immediate complications. The patient was returned to the his room in stable condition. FINDINGS: LEFT MAIN: This is a large size vessel trifurcating in the left circumflex, left anterior descending artery and ramus intermedius. Left main coronary artery without any obstructive coronary artery disease. LEFT ANTERIOR DESCENDING ARTERY: This was totally occluded proximally. After takeoff of the first diagonal branch, there is no antegrade flow. LEFT CIRCUMFLEX: This vessel is totally occluded proximally with no antegrade flow. RAMUS INTERMEDIUS: This vessel is moderate in caliber, has no evidence of high grade stenosis. RIGHT CORONARY ARTERY: This vessel is totally occluded in the mid segment with no antegrade flow. SAPHENOUS VEIN GRAFT TO THE RIGHT CORONARY ARTERY: The proximal and distal anastomotic site are patent. There is a 40% plaque in the proximal and mid segment of the body of the graft. The flow in the PDA and PLV is brisk. There is no evidence of high grade stenosis. SAPHENOUS VEIN GRAFT TO THE LEFT CIRCUMFLEX: The proximal and distal anastomotic site is patent. There is 40% to 50% plaque in the mid segment. The rest of the vessel has no high grade stenosis. The flow into the OM is brisk. ONEILL TO THE LAD: The distal anastomotic site is patent. The flow into the LAD is brisk. There is no evidence of high grade stenosis. Left ventriculogram is performed in 30-degree YAP view and revealed a normal left ventricular size and systolic function. Ejection fraction is 60%. HEMODYNAMICS: There was no 20 mm gradient across the aortic valve. The left ventricular end-diastolic pressure was 18 to 20 mmHg. CONCLUSION: 1. Severe triple vessel coronary artery disease. 2. Patent ONEILL to the LAD. 3. Patent saphenous vein graft to the obtuse marginal branch with 40% to 50% plaque in the mid segment. 4. Patent saphenous vein graft to the right coronary artery with 40% to 50% plaque in the proximal and mid segment. 5. Normal left ventricular size and systolic function with 20 mm gradient across the aortic valve. RECOMMENDATIONS: In view of finding anatomy, I recommend to continue medical therapy with aggressive coronary risk modification has been initiated. Those findings and recommendations were discussed with the patient and his family and are in full understanding and agreement. The duration of the procedure is 27 minutes. [facility]
--- NOTE | 2016-12-12 08:53 | MISC ---
December 11, 2016 Anisha Vines DO Re: Kirill Clements Dear Dr. Vines: I had the opportunity to perform cardiac catheterization on at [facility] on the 11 of December and a full copy of the procedure note will be forwarded to you. In brief, he was found to have severe triple vessel coronary artery disease with patent ONEILL to the LAD and a patent saphenous vein graft to the obtuse marginal branch and to the right coronary artery with moderate disease in the body of the graft with a normal left ventricular size and systolic function. He was found to have mild aortic stenosis and based on those findings, I recommend to continue medical therapy with the aggressive coronary risk modification has been initiated with close follow up of his aortic valve and depending on his progress. Further recommendations will be made. Thank you again for allowing me the opportunity to participate in his care. Please feel free to call for any questions. Sincere yours, Jyothi Woo MD [facility]ITAL[facility]
[2016-12-12] MEDS ORDERED: LUTEIN PO SCH (09:00)
[2016-12-12] MEDS ORDERED: ZEAXANTHIN PO SCH (09:00)
[2016-12-12] MEDS ORDERED: CHOLECALCIFEROL 1,000 UNIT TAB PO SCH (09:00)
[2016-12-12] MEDS ORDERED: [UNRECOGNIZED DRUG - OTHER] PO SCH (09:00)
[2016-12-12] MEDS ORDERED: ZINC PO SCH (09:00)
[2016-12-12] MEDS ORDERED: MONTELUKAST 10 MG TAB PO SCH (09:00)
[2016-12-12] MEDS ORDERED: VIT A,C & E-LUTEIN-MINERALS 1 EACH TAB PO SCH (09:00)
[2016-12-12] MEDS ORDERED: VIT C PO SCH (09:00)
[2016-12-13] MEDS ORDERED: METOLAZONE 5 MG TAB PO SCH (09:00)
== END 2016-12-11 20:30 | disposition home or self-care (01) ==
LOC: EC 21:46 → 3OBS 23:49
PROVIDERS: ADMIT Internal Medicine; ATTEND Internal Medicine
DX: R07.89 Other chest pain (principal); I10 Essential (primary) hypertension; E11.9 Type 2 diabetes mellitus without complications; E78.5 Hyperlipidemia, unspecified; R09.02 Hypoxemia; I25.10 Atherosclerotic heart disease of native coronary artery without angina pectoris; G47.33 Obstructive sleep apnea (adult) (pediatric); I44.0 Atrioventricular block, first degree; R61 Generalized hyperhidrosis; R06.02 Shortness of breath; K21.9 Gastro-esophageal reflux disease without esophagitis; N42.9 Disorder of prostate, unspecified; I48.91 Unspecified atrial fibrillation; Z79.82 Long term (current) use of aspirin; Z95.1 Presence of aortocoronary bypass graft; Z79.899 Other long term (current) drug therapy; Z79.4 Long term (current) use of insulin; Z79.01 Long term (current) use of anticoagulants; Z88.2 Allergy status to sulfonamides; Z99.89 Dependence on other enabling machines and devices; Z86.14 Personal history of Methicillin resistant Staphylococcus aureus infection; Z87.891 Personal history of nicotine dependence; Z82.49 Family history of ischemic heart disease and other diseases of the circulatory system
CPT/HCPCS: 99285; 36415; 93005; 93459; 83880; 80053; 83036; 82550 ×2; 82553 ×2; 83735; 84484 ×2; 85025; 85610 ×2; 85730 ×2; 71020; G0378 ×2; C1894; C1769; J2001; J1200; Q9967; J3010

== ENCOUNTER 2017-06-30 15:56 | Observation (INO) | payer MEDICARE, BC ==
[2017-06-30] MEDS ORDERED: NITROGLYCERIN OINT 1 INCH/GM PACKET TOPICAL STA (16:16)
[2017-06-30] MEDS ORDERED: ASPIRIN 81 MG PO STA (16:16)
--- NOTE | 2017-06-30 16:19 | ED ---
General Adult HPI - General Chief complaint: Chest Pain Stated complaint: chest tightness Time Seen by Provider: 06/30/17 16:07 Source: patient, RN notes reviewed Mode of arrival: ambulatory Limitations: no limitations - History of Present Illness Initial comments: Patient is a pleasant 77-year-old male presenting to the emergency department with chest discomfort. Onset was after doing some light shoveling outside today. Discomfort has been mild. Discomfort does feel like tightness with some associated dyspnea. Patient feels warm. Patient denies nausea or vomiting or diaphoresis. Symptoms are somewhat similar to previous cardiac problems. - Related Data Home Medications Medication Instructions Recorded Confirmed Acetaminophen [Tylenol Arthritis] 1,300 mg PO BID 06/04/16 06/30/17 Aspirin [Adult Low Dose Aspirin EC] 81 mg PO QAM 06/04/16 06/30/17 Cholecalciferol [Vitamin D3] 5,000 unit PO DAILY 06/04/16 06/30/17 Diltiazem HCl 120 mg PO HS 06/04/16 06/30/17 Loratadine 10 mg PO HS 06/04/16 06/30/17 Losartan-Hctz 50-12.5 mg [Hyzaar 1 tab PO HS 06/04/16 06/30/17 50-12.5] Montelukast [Singulair] 10 mg PO DAILY 06/04/16 06/30/17 Simvastatin [Zocor] 20 mg PO Q48H 06/04/16 06/30/17 Vit C/E/Zinc/Lutein/Zeaxanthin 1 tab PO DAILY 06/04/16 06/30/17 [[facility]] Warfarin [Coumadin] 5 mg PO SUWE 06/04/16 06/30/17 Warfarin [Coumadin] 7.5 mg PO MOTUTHFRSA 06/04/16 06/30/17 Insulin Degludec [Tresiba 48 unit SQ HS 10/26/16 06/30/17 Flextouch U-100] Insulin Aspart [NovoLOG 3 - 4 unit SQ AC-TID 12/10/16 06/30/17 (formulary)] Metoprolol Tartrate [Lopressor] 12.5 mg PO DAILY 12/10/16 06/30/17 Multivit-Min/FA/Lycopen/Lutein 1 tab PO DAILY 12/10/16 06/30/17 [Centrum Silver Men Tablet] Celecoxib [CeleBREX] 200 mg PO DAILY 06/30/17 06/30/17 Allergies Allergy/AdvReac Type Severity Reaction Status Date / Time Sulfa (Sulfonamide Allergy Itching Verified 06/30/17 16:24 Antibiotics) Review of Systems ROS Statement: Those systems with pertinent positive or pertinent negative responses have been documented in the HPI. ROS Other: All systems not noted in ROS Statement are negative. Constitutional: Denies: fever Eyes: Denies: eye pain ENT: Denies: ear pain Respiratory: Reports: dyspnea. Denies: cough Cardiovascular: Reports: chest pain Endocrine: Denies: fatigue Gastrointestinal: Denies: abdominal pain Genitourinary: Denies: dysuria Musculoskeletal: Denies: back pain Skin: Denies: rash Neurological: Denies: weakness Past Medical History Past Medical History: Coronary Artery Disease (CAD), Cancer, Diabetes Mellitus, GERD/Reflux, Hyperlipidemia, Hypertension, Prostate Disorder, Sleep Apnea/CPAP/ BIPAP Additional Past Medical History / Comment(s): HX PROSTATE AND Skin CA. USES CPAP. History of Any Multi-Drug Resistant Organisms: MRSA Date of last positivie culture/infection: 06/04/16 MDRO Source:: Neck Past Surgical History: Coronary Bypass/CABG, Heart Catheterization Additional Past Surgical History / Comment(s): 1994 TRIPLE Bypass. Hemorrhoid. Bilat cataract,. Hiatal hernia 2012. Fatty tumor removed 2004. COLONOSCOPY , EGD, Cataract removal. Past Anesthesia/Blood Transfusion Reactions: No Reported Reaction Past Psychological History: No Psychological Hx Reported Smoking Status: Former smoker Past Alcohol Use History: None Reported Past Drug Use History: None Reported - Past Family History Father Family Medical History: Congestive Heart Failure (CHF), Respiratory Disorder General Exam Limitations: no limitations General appearance: alert, in no apparent distress Head exam: Present: atraumatic Eye exam: Present: normal appearance, PERRL ENT exam: Present: normal oropharynx Neck exam: Present: normal inspection Respiratory exam: Present: normal lung sounds bilaterally. Absent: chest wall tenderness Cardiovascular Exam: Present: regular rate, normal rhythm, systolic murmur Expanded Peripheral pulses: 2+: Radial (R), Radial (L), Dorsalis Pedis (R), Dorsalis Pedis (L) GI/Abdominal exam: Present: soft. Absent: tenderness Extremities exam: Present: normal inspection Neurological exam: Present: alert Psychiatric exam: Present: normal affect, normal mood Skin exam: Present: normal color Course Vital Signs 06/30/17 06/30/17 06/30/17 16:03 16:30 17:43 Temperature 98.4 F 98.2 F Pulse Rate 60 58 L 56 L Respiratory 20 18 17 Rate Blood Pressure 185/80 183/84 128/69 O2 Sat by Pulse 99 96 96 Oximetry 06/30/17 18:00 Temperature Pulse Rate 54 L Respiratory 18 Rate Blood Pressure 121/68 O2 Sat by Pulse 94 L Oximetry EKG Findings - EKG Comments: EKG Findings:: Sinus rhythm at 61 with sinus arrhythmia. For screening AV block with a NH of 232. QRS 100. QT 390. QTC 292. Left axis. Normal QRS. No acute ST change. Medical Decision Making - Medical Decision Making Patient reevaluated and resting comfortably in bed. Patient and family were updated on results and plan. Lungs discussion was had with him. They did have a family meeting and then patient did finally agree for admission. Case was discussed in detail with Dr. Gillespie, who will admit for Dr. Vines - Lab Data Result diagrams: 06/30/17 16:25 06/30/17 16:25 Lab Results 06/30/17 06/30/17 06/30/17 Range/Units 16:25 16:25 16:25 WBC 6.6 (3.8-10.6) k/uL RBC 4.87 (4.30-5.90) m/uL Hgb 13.1 (13.0-17.5) gm/dL Hct 38.5 L (39.0-53.0) % MCV 79.0 L (80.0-100.0) fL MCH 27.0 (25.0-35.0) pg MCHC 34.2 (31.0-37.0) g/dL RDW 14.3 (11.5-15.5) % Plt Count 135 L (150-450) k/uL Neutrophils % 72 % Lymphocytes % 16 % Monocytes % 6 % Eosinophils % 3 % Basophils % 0 % Neutrophils # 4.8 (1.3-7.7) k/uL Lymphocytes # 1.0 (1.0-4.8) k/uL Monocytes # 0.4 (0-1.0) k/uL Eosinophils # 0.2 (0-0.7) k/uL Basophils # 0.0 (0-0.2) k/uL PT (9.0-12.0) sec INR (<1.2) APTT (22.0-30.0) sec Sodium 138 (137-145) mmol/L Potassium 4.4 (3.5-5.1) mmol/L Chloride 103 (98-107) mmol/L Carbon Dioxide 25 (22-30) mmol/L Anion Gap 10 mmol/L BUN 26 H (9-20) mg/dL Creatinine 0.90 (0.66-1.25) mg/dL Est GFR (CKD-EPI)AfAm >90 (>60 ml/min/1.73 sqM) Est GFR (CKD-EPI)NonAf 82 (>60 ml/min/1.73 sqM) Glucose 154 H (74-99) mg/dL Calcium 9.2 (8.4-10.2) mg/dL Magnesium 2.0 (1.6-2.3) mg/dL Total Bilirubin 0.5 (0.2-1.3) mg/dL AST 34 (17-59) U/L ALT <6 L (21-72) U/L Alkaline Phosphatase 83 (38-126) U/L Total Creatine Kinase 102 (55-170) U/L CK-MB (CK-2) 2.7 H* (0.0-2.4) ng/mL CK-MB (CK-2) Rel Index 2.6 Troponin I <0.012 (0.000-0.034) ng/mL Total Protein 6.7 (6.3-8.2) g/dL Albumin 4.0 (3.5-5.0) g/dL 06/30/17 Range/Units 16:25 WBC (3.8-10.6) k/uL RBC (4.30-5.90) m/uL Hgb (13.0-17.5) gm/dL Hct (39.0-53.0) % MCV (80.0-100.0) fL MCH (25.0-35.0) pg MCHC (31.0-37.0) g/dL RDW (11.5-15.5) % Plt Count (150-450) k/uL Neutrophils % % Lymphocytes % % Monocytes % % Eosinophils % % Basophils % % Neutrophils # (1.3-7.7) k/uL Lymphocytes # (1.0-4.8) k/uL Monocytes # (0-1.0) k/uL Eosinophils # (0-0.7) k/uL Basophils # (0-0.2) k/uL PT 26.9 H (9.0-12.0) sec INR 3.0 H (<1.2) APTT 32.0 H (22.0-30.0) sec Sodium (137-145) mmol/L Potassium (3.5-5.1) mmol/L Chloride (98-107) mmol/L Carbon Dioxide (22-30) mmol/L Anion Gap mmol/L BUN (9-20) mg/dL Creatinine (0.66-1.25) mg/dL Est GFR (CKD-EPI)AfAm (>60 ml/min/1.73 sqM) Est GFR (CKD-EPI)NonAf (>60 ml/min/1.73 sqM) Glucose (74-99) mg/dL Calcium (8.4-10.2) mg/dL Magnesium (1.6-2.3) mg/dL Total Bilirubin (0.2-1.3) mg/dL AST (17-59) U/L ALT (21-72) U/L Alkaline Phosphatase (38-126) U/L Total Creatine Kinase (55-170) U/L CK-MB (CK-2) (0.0-2.4) ng/mL CK-MB (CK-2) Rel Index Troponin I (0.000-0.034) ng/mL Total Protein (6.3-8.2) g/dL Albumin (3.5-5.0) g/dL - Radiology Data Radiology results: image reviewed (Chest x-ray shows chronic changes. Atelectasis versus infiltrate.) Disposition Clinical Impression: Chest pain Disposition: ADMITTED IP TO THIS [facility] Referrals: Anisha Vines DO [Primary Care Provider] - 1-2 days
[2017-06-30 16:40] LABS: Basophils % (A) 0 %; Eosinophils # (A) 0.2 k/uL (0-0.7); Eosinophils % (A) 3 %; HCT 38.5 % (39.0-53.0); HGB 13.1 gm/dL (13.0-17.5); Lymphocytes % (A) 16 %; MCHC 34.2 g/dL (31.0-37.0); Monocytes # (A) 0.4 k/uL (0-1.0); Monocytes % (A) 6 %; Neutrophils # (A) 4.8 k/uL (1.3-7.7); Neutrophils % (A) 72 %; Platelet Count 135 k/uL (150-450); RBC 4.87 m/uL (4.30-5.90); RDW 14.3 % (11.5-15.5); WBC 6.6 k/uL (3.8-10.6)
[2017-06-30 16:51] LABS: Prothrombin Time 26.9 sec (9.0-12.0)
[2017-06-30 16:57] LABS: ALT <6 U/L (21-72); AST 34 U/L (17-59); Alkaline Phosphatase 83 U/L (38-126); Anion Gap 10 mmol/L; Blood Urea Nitrogen 26 mg/dL (9-20); Calcium 9.2 mg/dL (8.4-10.2); Carbon Dioxide 25 mmol/L (22-30); Chloride 103 mmol/L (98-107); Glucose 154 mg/dL (74-99); Potassium 4.4 mmol/L (3.5-5.1); Sodium 138 mmol/L (137-145); Total Bilirubin 0.5 mg/dL (0.2-1.3); Total Protein 6.7 g/dL (6.3-8.2)
[2017-06-30 17:16] LABS: Creatine Kinase 102 U/L (55-170)
[2017-06-30 17:29] LABS: Troponin I <0.012 ng/mL (0.000-0.034)
[2017-06-30 17:40] LABS: Creatine Kinase MB 2.7 ng/mL (0.0-2.4)
--- NOTE | 2017-06-30 18:09 | XR ---
EXAMINATION TYPE: XR chest 2V DATE OF EXAM: 06/30/2017 COMPARISON: Prior chest x-ray December 10, 2016. HISTORY: Chest pain and tightness. TECHNIQUE: Frontal and lateral views of the chest are obtained. FINDINGS: Sternal wires and mediastinal clips are redemonstrated. There is chronic parenchymal chapman e with patchy left basilar atelectasis and/or infiltrate. Right lung is clear. The cardiac silhouett e size is within normal limits. The osseous structures are intact. IMPRESSION: Chronic parenchymal change with new patchy left basilar atelectasis and/or infiltrate.
[2017-06-30] MEDS ORDERED: NITROGLYCERIN SL TABS 0.4 MG TAB SUBLINGUAL PRN (19:49)
[2017-06-30 20:56] LABS: Glucose,Whole Blood 114 mg/dL (75-99)
[2017-06-30] MEDS ORDERED: ONDANSETRON 4 MG/2 ML VIAL IVP PRN (21:25)
[2017-06-30] MEDS ORDERED: MORPHINE SULFATE 4 MG/ML SYRINGE IVP PRN (21:25)
[2017-06-30] MEDS ORDERED: ATORVASTATIN 10 MG TAB PO SCH (21:30)
[2017-06-30] MEDS ORDERED: INSULIN DETEMIR 100 UNIT/ML 10 ML VIAL SQ SCH (21:30)
[2017-06-30] MEDS ORDERED: LOSARTAN-HCTZ 50-12.5 MG 1 EACH TAB PO SCH (21:30)
[2017-06-30] MEDS ORDERED: NON-FORMULARY DRUG (Aspirin [Adult Low Dose Aspirin Ec] 81 MG) PO SCH (21:30)
[2017-06-30] MEDS ORDERED: DILTIAZEM ORAL 60 MG TAB PO SCH (21:30)
[2017-06-30] MEDS ORDERED: WARFARIN 7.5 MG TAB PO SCH (21:30)
[2017-06-30] MEDS: ACETAMINOPHEN TAB 325 MG TAB PO SCH (22:19)
[2017-06-30] MEDS: NITROGLYCERIN OINT 1 INCH/GM PACKET TOPICAL SCH (23:26)
[2017-06-30 23:30] LABS: Creatine Kinase 72 U/L (55-170)
[2017-06-30 23:43] LABS: Creatine Kinase MB 1.8 ng/mL (0.0-2.4); Troponin I <0.012 ng/mL (0.000-0.034)
[2017-07-01 05:37] LABS: Cholesterol 131 mg/dL (<200); HDL Cholesterol 29 mg/dL (40-60); LDL Cholesterol,Calculated 64 mg/dL (0-99); Triglycerides 191 mg/dL (<150)
[2017-07-01] MEDS: NITROGLYCERIN OINT 1 INCH/GM PACKET TOPICAL SCH ×2 (05:44→12:20)
[2017-07-01 05:52] LABS: Creatine Kinase 73 U/L (55-170)
[2017-07-01 06:03] LABS: Creatine Kinase MB 1.7 ng/mL (0.0-2.4); Troponin I <0.012 ng/mL (0.000-0.034)
[2017-07-01 07:04] LABS: Glucose,Whole Blood 109 mg/dL (75-99)
[2017-07-01 08:31] LABS: Creatine Kinase 69 U/L (55-170)
[2017-07-01 08:32] VITALS: RESP 18
[2017-07-01 08:43] LABS: Creatine Kinase MB 1.7 ng/mL (0.0-2.4); Troponin I <0.012 ng/mL (0.000-0.034)
[2017-07-01] MEDS ORDERED: LORATADINE 10 MG TAB PO SCH (09:00)
[2017-07-01] MEDS ORDERED: MELOXICAM 7.5 MG TAB PO SCH (09:00)
[2017-07-01] MEDS ORDERED: METOPROLOL TARTRATE 12.5 MG TAB PO SCH (09:00)
[2017-07-01] MEDS ORDERED: ASPIRIN 325 MG TAB PO SCH (09:00)
[2017-07-01] MEDS ORDERED: MONTELUKAST 10 MG TAB PO SCH (09:00)
[2017-07-01] MEDS ORDERED: VIT A,C & E-LUTEIN-MINERALS 1 EACH TAB PO SCH (09:00)
--- NOTE | 2017-07-01 09:30 | P.CRDCN ---
History of Present Illness History of present illness: 77 male patient presenting with epigastric discomfort Impression Known coronary artery disease nonobstructive based upon last coronary angiogram Hypertension Adult-onset diabetes on insulin Murmur of aortic sclerosis/ mild aortic stenosis Symptoms consistent with epigastric/non-cardiac etiology with normal cardiac enzymes May go home from a cardiac standpoint and follow Dr. Woo Please see full dictation by nurse practitioner Past Medical History Past Medical History: Coronary Artery Disease (CAD), Cancer, Diabetes Mellitus, GERD/Reflux, Hyperlipidemia, Hypertension, Prostate Disorder, Sleep Apnea/CPAP/ BIPAP Additional Past Medical History / Comment(s): HX PROSTATE AND Skin CA. USES CPAP. History of Any Multi-Drug Resistant Organisms: MRSA Date of last positivie culture/infection: 06/04/16 MDRO Source:: Neck Past Surgical History: Coronary Bypass/CABG, Heart Catheterization Additional Past Surgical History / Comment(s): 1994 TRIPLE Bypass. Hemorrhoid. Bilat cataract,. Hiatal hernia 2012. Fatty tumor removed 2004. COLONOSCOPY , EGD, Cataract removal. Past Anesthesia/Blood Transfusion Reactions: No Reported Reaction Smoking Status: Former smoker - Past Family History Father Family Medical History: Congestive Heart Failure (CHF), Myocardial Infarction ( [place]), Respiratory Disorder Mother Additional Family Medical History / Comment(s): heart and resp issues from [employer] Medications and Allergies Home Medications Medication Instructions Recorded Confirmed Type Acetaminophen [Tylenol Arthritis] 1,300 mg PO BID 06/04/16 06/30/17 History Aspirin [Adult Low Dose Aspirin EC] 81 mg PO HS 06/04/16 06/30/17 History Cholecalciferol [Vitamin D3] 5,000 unit PO DAILY 06/04/16 06/30/17 History Diltiazem HCl 120 mg PO HS 06/04/16 06/30/17 History Loratadine 10 mg PO DAILY 06/04/16 06/30/17 History Losartan-Hctz 50-12.5 mg [Hyzaar 1 tab PO HS 06/04/16 06/30/17 History 50-12.5] Montelukast [Singulair] 10 mg PO DAILY 06/04/16 06/30/17 History Simvastatin [Zocor] 20 mg PO Q48H 06/04/16 06/30/17 History Vit C/E/Zinc/Lutein/Zeaxanthin 1 tab PO DAILY 06/04/16 06/30/17 History [Ocuvite [facility] Gummies] Warfarin [Coumadin] 5 mg PO SUWE 06/04/16 06/30/17 History Warfarin [Coumadin] 7.5 mg PO MOTUTHFRSA 06/04/16 06/30/17 History Insulin Degludec [Tresiba 40 unit SQ HS 10/26/16 06/30/17 History Flextouch U-100] Metoprolol Tartrate [Lopressor] 12.5 mg PO DAILY 12/10/16 06/30/17 History Multivit-Min/FA/Lycopen/Lutein 1 tab PO DAILY 12/10/16 06/30/17 History [Centrum Silver Men Tablet] Celecoxib [CeleBREX] 200 mg PO DAILY 06/30/17 06/30/17 History Allergies Allergy/AdvReac Type Severity Reaction Status Date / Time Sulfa (Sulfonamide Allergy Itching Verified 06/30/17 20:42 Antibiotics) Physical Exam Vitals: Vital Signs Temp Pulse Pulse Resp BP BP Pulse Ox 07/01/17 08:00 97.6 F 54 L 18 104/58 96 07/01/17 04:00 98.3 F 54 L 16 95/51 95 06/30/17 23:50 16 06/30/17 23:17 97.7 F 55 L 16 96/54 94 L 06/30/17 21:41 16 06/30/17 20:48 97.6 F 53 L 16 117/66 96 06/30/17 20:07 98.7 F 60 18 105/63 96 06/30/17 19:00 97.9 F 54 L 18 116/67 98 06/30/17 18:00 54 L 18 121/68 94 L 06/30/17 17:43 98.2 F 56 L 17 128/69 96 06/30/17 16:30 58 L 18 183/84 96 06/30/17 16:03 98.4 F 60 20 185/80 99 Intake and Output 06/30/17 07/01/17 07/01/17 21:59 06:59 14:59 Other: # Voids Weight Results 06/30/17 16:25 06/30/17 16:25 Cardiac Enzymes 06/30/17 06/30/17 06/30/17 Range/Units 16:25 16:25 22:48 AST 34 (17-59) U/L CK-MB (CK-2) 2.7 H* 1.8 (0.0-2.4) ng/mL Troponin I <0.012 <0.012 (0.000-0.034) ng/mL 07/01/17 07/01/17 Range/Units 03:03 07:03 AST (17-59) U/L CK-MB (CK-2) 1.7 1.7 (0.0-2.4) ng/mL Troponin I <0.012 <0.012 (0.000-0.034) ng/mL Coagulation 06/30/17 Range/Units 16:25 PT 26.9 H (9.0-12.0) sec APTT 32.0 H (22.0-30.0) sec Lipids 07/01/17 Range/Units 03:03 Triglycerides 191 H (<150) mg/dL Cholesterol 131 (<200) mg/dL HDL Cholesterol 29 L (40-60) mg/dL CBC 06/30/17 Range/Units 16:25 WBC 6.6 (3.8-10.6) k/uL RBC 4.87 (4.30-5.90) m/uL Hgb 13.1 (13.0-17.5) gm/dL Hct 38.5 L (39.0-53.0) % Plt Count 135 L (150-450) k/uL Comprehensive Metabolic Panel 06/30/17 Range/Units 16:25 Sodium 138 (137-145) mmol/L Potassium 4.4 (3.5-5.1) mmol/L Chloride 103 (98-107) mmol/L Carbon Dioxide 25 (22-30) mmol/L BUN 26 H (9-20) mg/dL Creatinine 0.90 (0.66-1.25) mg/dL Glucose 154 H (74-99) mg/dL Calcium 9.2 (8.4-10.2) mg/dL AST 34 (17-59) U/L ALT <6 L (21-72) U/L Alkaline Phosphatase 83 (38-126) U/L Total Protein 6.7 (6.3-8.2) g/dL Albumin 4.0 (3.5-5.0) g/dL Current Medications Generic Name Dose Route Start Last Admin Trade Name Freq PRN Reason Stop Dose Admin Acetaminophen 1,300 mg 06/30/17 21:30 06/30/17 22:19 Tylenol Tab PO 1,300 mg BID [facility] Administration Aspirin 325 mg 07/01/17 09:00 Aspirin PO DAILY [facility] Atorvastatin Calcium 10 mg 06/30/17 21:30 06/30/17 22:20 Lipitor PO 10 mg Q48H [facility] Administration Cholecalciferol 5,000 unit 07/01/17 12:00 Vitamin D3 PO DAILY@1200 [facility] Diltiazem HCl 120 mg 06/30/17 21:30 06/30/17 22:20 Cardizem Oral PO 120 mg HS [facility] Administration HCTZ/Losartan Potassium 1 each 06/30/17 21:30 06/30/17 22:20 Hyzaar 50-12.5 PO 1 each HS [facility] Administration Insulin Detemir 40 unit 06/30/17 21:30 06/30/17 22:19 Levemir SQ 40 unit HS [facility] Administration Loratadine 10 mg 07/01/17 09:00 Claritin PO DAILY [facility] Meloxicam 7.5 mg 07/01/17 09:00 Mobic PO DAILY [facility] Metoprolol Tartrate 12.5 mg 07/01/17 09:00 Lopressor PO DAILY [facility] Montelukast Sodium 10 mg 07/01/17 09:00 Singulair PO DAILY [facility] Morphine Sulfate 2 mg 06/30/17 21:25 Morphine Sulfate (Inj) IVP Q4HR PRN Pain Multivitamins 1 each 07/01/17 12:00 Theragran PO DAILY@1200 [facility] Multivitamins/Minerals 1 each 07/01/17 09:00 Ivite PO DAILY [facility] Nitroglycerin 1 inch 07/01/17 00:00 07/01/17 05:44 Nitro-Bid Oint TOPICAL Not Given Q6HR [facility] Nitroglycerin 0.4 mg 06/30/17 19:49 Nitrostat SUBLINGUAL Q5M PRN Chest Pain Ondansetron HCl 4 mg 06/30/17 21:25 Zofran IVP Q6HR PRN Nausea And Vomiting Warfarin Sodium 5 mg 07/01/17 21:21 Coumadin PO SUWE [facility] Warfarin Sodium 7.5 mg 06/30/17 21:30 06/30/17 22:20 Coumadin PO 7.5 mg MOTUTHFRSA [facility] Administration Intake and Output 06/30/17 07/01/17 07/01/17 21:59 06:59 14:59 Other: # Voids Weight 06/30/17 16:25 06/30/17 16:25
[2017-07-01] MEDS: ACETAMINOPHEN TAB 325 MG TAB PO SCH (10:00)
--- NOTE | 2017-07-01 10:33 | P.CRDCN ---
History of Present Illness Consult date: 07/01/17 History of present illness: Mr. Clements is a pleasant 77-year-old female past medial history significant for coronary artery disease s/p bypass grafting in 1994, diabetes mellitus, dyslipidemia, paroxysmal atrial fibrillation on long-term anticoagulation, hypertension, GERD and sleep apnea. He sees Dr. Woo in the office. WE have been asked to see him in consultation for complaints of chest pain. He states yesterday afternoon after eating and doing significant amount of physical activity, which is normal for him, he started feeling generalized weakness, fatigue, shortness of breath, epigastric pain and generalized flushing. These symptoms persisted even after he sat down and rested. He states he had eaten a sandwich with some cheese as well as chips that had tasted old. He denies associated chest pain, dizziness, palpitations, nausea or vomiting. He saw Dr. Woo beginning of this week and mentioned to him that he was started on celebrex and he advised him to be cautioous with taking this. The patient states he had already put them in his pill box and was going to finish those and would stop this medication. He also recalls a similar episode approximately 5 years ago when he was taking metaxalone. At the time of exam he is seen resting comfortably in bed in no acute distress. Telemetry tracings have been unremarkable. He is maintaining sinus mechanism. He denies any further symptoms since arriving at the hospital. EKG on arrival reveals sinus mechanism with first degree AV block, which is consistent with old EKG. No acute ST or T-wave abnormalities. Chest xray is negative for an acute cardiopulmonary process. Laboratory data reviewed, hemoglobin 13.1, platelets 135, INR 3.0, potassium 4.4 , magnesium 2.0, creatinine 0.9, cardiac enzymes negative 3. Current cardiac medications include aspirin 81 mg daily, Coumadin, Zocor 20 mg every other day, metoprolol 12.5 mg daily, losartan/HCTZ 50/12.5 mg daily, diltiazem 120 mg daily. At the time of my exam: CONSTITUTIONAL: Denies fever. Denies chills. EYES: Denies blurred vision. Denies vision changes. Denies eye pain. EARS, NOSE, MOUTH & THROAT: Denies headache. Denies sore throat. Denies ear pain. CARDIOVASCULAR: Denies chest pain. Denies shortness of breath. Denies orthopnea. Denies PND. Denies palpitations. RESPIRATORY: Denies cough. GASTROINTESTINAL: Denies abdominal pain. Denies diarrhea. Denies constipation. Denies nausea. Denies vomiting. MUSCULOSKELETAL: Denies myalgias. INTEGUMENTARY: Denies pruitis. Denies rash. NEUROLOGIC: Denies numbness. Denies tingling. Denies weakness. PSYCHIATRIC: Denies anxiety. Denies depression. ENDOCRINE: Denies fatigue. Denies weight change. Denies polydipsia. Denies polyurina. GENITOURINARY: Denies burning, hematuria or urgency with micturation. HEMATOLOGIC: Denies history of anemia. Denies bleeding. Blood pressure 1/58 heart rate 54 afebrile maintaining oxygen saturation on room air. GENERAL: This is a 77-year-old male in no apparent distress at the time of my examination. HEENT: Head is atraumatic, normocephalic. Pupils are equal, round. Sclerae anicteric. Conjunctivae are clear. Mucous membranes of the mouth are moist. Neck is supple. There is no jugular venous distention. No carotid bruit is heard. LUNGS: Clear to auscultation no wheezes, rales or rhonchi. No chest wall tenderness is noted on palpation or with deep breathing. HEART: Regular rate and rhythm with systolic ejection murmur at the base, no rubs or gallops. S1 and S2 heard. ABDOMEN: Soft, nontender. Bowel sounds are heard. No organomegaly noted. EXTREMITIES: No evidence of peripheral edema and no calf tenderness noted. VASCULAR: Radial and dorsalis pedis pulses palpated, no evidence of clubbing. NEUROLOGIC: Patient is awake, alert and oriented x3. ASSESSMENT 1. Paroxysmal atrial fibrillation on long-term anticoagulation. Maintaining sinus mechanism. 2. History of coronary artery disease status post bypass grafting, most recent cardiac catheterization in November 2016 revealed no progression of disease. No obstructive pattern. 3. Hypertension 4. Diabetes mellitus 5. Gastroesophageal reflux disease 6. Systolic ejection murmur PLAN Wipe nitropaste off and increase activity. Stable from cardiac perspective. Follow with Dr. Woo upon discharge. Agree with discontinuation of celebrex. Thank you kindly for this consultation. Nurse Practitioner note has been reviewed, I agree with a documented findings and plan of care. Patient was seen and examined. Past Medical History Past Medical History: Coronary Artery Disease (CAD), Cancer, Diabetes Mellitus, GERD/Reflux, Hyperlipidemia, Hypertension, Prostate Disorder, Sleep Apnea/CPAP/ BIPAP Additional Past Medical History / Comment(s): HX PROSTATE AND Skin CA. USES CPAP. History of Any Multi-Drug Resistant Organisms: MRSA Date of last positivie culture/infection: 06/04/16 MDRO Source:: Neck Past Surgical History: Coronary Bypass/CABG, Heart Catheterization Additional Past Surgical History / Comment(s): 1994 TRIPLE Bypass. Hemorrhoid. Bilat cataract,. Hiatal hernia 2012. Fatty tumor removed 2004. COLONOSCOPY , EGD, Cataract removal. Past Anesthesia/Blood Transfusion Reactions: No Reported Reaction Smoking Status: Former smoker - Past Family History Father Family Medical History: Congestive Heart Failure (CHF), Myocardial Infarction ( [place]), Respiratory Disorder Mother Additional Family Medical History / Comment(s): heart and resp issues from [employer] Medications and Allergies Home Medications Medication Instructions Recorded Confirmed Type Acetaminophen [Tylenol Arthritis] 1,300 mg PO BID 06/04/16 06/30/17 History Aspirin [Adult Low Dose Aspirin EC] 81 mg PO HS 06/04/16 06/30/17 History Cholecalciferol [Vitamin D3] 5,000 unit PO DAILY 06/04/16 06/30/17 History Diltiazem HCl 120 mg PO HS 06/04/16 06/30/17 History Loratadine 10 mg PO DAILY 06/04/16 06/30/17 History Losartan-Hctz 50-12.5 mg [Hyzaar 1 tab PO HS 06/04/16 06/30/17 History 50-12.5] Montelukast [Singulair] 10 mg PO DAILY 06/04/16 06/30/17 History Simvastatin [Zocor] 20 mg PO Q48H 06/04/16 06/30/17 History Vit C/E/Zinc/Lutein/Zeaxanthin 1 tab PO DAILY 06/04/16 06/30/17 History [[employer] G[employer]] Warfarin [Coumadin] 5 mg PO SUWE 06/04/16 06/30/17 History Warfarin [Coumadin] 7.5 mg PO MOTUTHFRSA 06/04/16 06/30/17 History Insulin Degludec [Tresiba 40 unit SQ HS 10/26/16 06/30/17 History Flextouch U-100] Metoprolol Tartrate [Lopressor] 12.5 mg PO DAILY 12/10/16 06/30/17 History Multivit-Min/FA/Lycopen/Lutein 1 tab PO DAILY 12/10/16 06/30/17 History [Centrum Silver Men Tablet] Celecoxib [CeleBREX] 200 mg PO DAILY 06/30/17 06/30/17 History Allergies Allergy/AdvReac Type Severity Reaction Status Date / Time Sulfa (Sulfonamide Allergy Itching Verified 06/30/17 20:42 Antibiotics) Physical Exam Vitals: Vital Signs Temp Pulse Pulse Resp BP BP Pulse Ox 07/01/17 04:00 98.3 F 54 L 16 95/51 95 06/30/17 23:50 16 06/30/17 23:17 97.7 F 55 L 16 96/54 94 L 06/30/17 21:41 16 06/30/17 20:48 97.6 F 53 L 16 117/66 96 06/30/17 20:07 98.7 F 60 18 105/63 96 06/30/17 19:00 97.9 F 54 L 18 116/67 98 06/30/17 18:00 54 L 18 121/68 94 L 06/30/17 17:43 98.2 F 56 L 17 128/69 96 06/30/17 16:30 58 L 18 183/84 96 06/30/17 16:03 98.4 F 60 20 185/80 99 Intake and Output 06/30/17 07/01/17 07/01/17 21:59 06:59 14:59 Other: # Voids Weight Results 06/30/17 16:25 06/30/17 16:25 Cardiac Enzymes 06/30/17 06/30/17 06/30/17 Range/Units 16:25 16:25 22:48 AST 34 (17-59) U/L CK-MB (CK-2) 2.7 H* 1.8 (0.0-2.4) ng/mL Troponin I <0.012 <0.012 (0.000-0.034) ng/mL 07/01/17 Range/Units 03:03 AST (17-59) U/L CK-MB (CK-2) 1.7 (0.0-2.4) ng/mL Troponin I <0.012 (0.000-0.034) ng/mL Coagulation 06/30/17 Range/Units 16:25 PT 26.9 H (9.0-12.0) sec APTT 32.0 H (22.0-30.0) sec Lipids 07/01/17 Range/Units 03:03 Triglycerides 191 H (<150) mg/dL Cholesterol 131 (<200) mg/dL HDL Cholesterol 29 L (40-60) mg/dL CBC 06/30/17 Range/Units 16:25 WBC 6.6 (3.8-10.6) k/uL RBC 4.87 (4.30-5.90) m/uL Hgb 13.1 (13.0-17.5) gm/dL Hct 38.5 L (39.0-53.0) % Plt Count 135 L (150-450) k/uL Comprehensive Metabolic Panel 06/30/17 Range/Units 16:25 Sodium 138 (137-145) mmol/L Potassium 4.4 (3.5-5.1) mmol/L Chloride 103 (98-107) mmol/L Carbon Dioxide 25 (22-30) mmol/L BUN 26 H (9-20) mg/dL Creatinine 0.90 (0.66-1.25) mg/dL Glucose 154 H (74-99) mg/dL Calcium 9.2 (8.4-10.2) mg/dL AST 34 (17-59) U/L ALT <6 L (21-72) U/L Alkaline Phosphatase 83 (38-126) U/L Total Protein 6.7 (6.3-8.2) g/dL Albumin 4.0 (3.5-5.0) g/dL Current Medications Generic Name Dose Route Start Last Admin Trade Name Freq PRN Reason Stop Dose Admin Acetaminophen 1,300 mg 06/30/17 21:30 06/30/17 22:19 Tylenol Tab PO 1,300 mg BID [facility] Administration Aspirin 325 mg 07/01/17 09:00 Aspirin PO DAILY [facility] Atorvastatin Calcium 10 mg 06/30/17 21:30 06/30/17 22:20 Lipitor PO 10 mg Q48H [facility] Administration Cholecalciferol 5,000 unit 07/01/17 12:00 Vitamin D3 PO DAILY@1200 [facility] Diltiazem HCl 120 mg 06/30/17 21:30 06/30/17 22:20 Cardizem Oral PO 120 mg HS [facility] Administration HCTZ/Losartan Potassium 1 each 06/30/17 21:30 06/30/17 22:20 Hyzaar 50-12.5 PO 1 each HS [facility] Administration Insulin Detemir 40 unit 06/30/17 21:30 06/30/17 22:19 Levemir SQ 40 unit HS [facility] Administration Loratadine 10 mg 07/01/17 09:00 Claritin PO DAILY [facility] Meloxicam 7.5 mg 07/01/17 09:00 Mobic PO DAILY [facility] Metoprolol Tartrate 12.5 mg 07/01/17 09:00 Lopressor PO DAILY [facility] Montelukast Sodium 10 mg 07/01/17 09:00 Singulair PO DAILY [facility] Morphine Sulfate 2 mg 06/30/17 21:25 Morphine Sulfate (Inj) IVP Q4HR PRN Pain Multivitamins 1 each 07/01/17 12:00 Theragran PO DAILY@1200 [facility] Multivitamins/Minerals 1 each 07/01/17 09:00 Ivite PO DAILY [facility] Nitroglycerin 1 inch 07/01/17 00:00 07/01/17 05:44 Nitro-Bid Oint TOPICAL Not Given Q6HR [facility] Nitroglycerin 0.4 mg 06/30/17 19:49 Nitrostat SUBLINGUAL Q5M PRN Chest Pain Ondansetron HCl 4 mg 06/30/17 21:25 Zofran IVP Q6HR PRN Nausea And Vomiting Warfarin Sodium 5 mg 07/01/17 21:21 Coumadin PO SUWE [facility] Warfarin Sodium 7.5 mg 06/30/17 21:30 06/30/17 22:20 Coumadin PO 7.5 mg MOTUTHFRSA [facility] Administration Intake and Output 06/30/17 07/01/17 07/01/17 21:59 06:59 14:59 Other: # Voids Weight 06/30/17 16:25 06/30/17 16:25
[2017-07-01] MEDS ORDERED: CHOLECALCIFEROL 1,000 UNIT TAB PO SCH (12:00)
[2017-07-01] MEDS ORDERED: MULTIVITAMINS, THERA 1 EACH TAB PO SCH (12:00)
[2017-07-01 12:02] LABS: Glucose,Whole Blood 107 mg/dL (75-99)
[2017-07-01 12:15] VITALS: BP 125/67; PULSE 60; TEMP 97.8
--- NOTE | 2017-07-01 14:22 | P.HPIM ---
History of Present Illness H&P Date: 07/01/17 Jevon Clements is a 77-year-old male who presented to [facility] emergency room with a chief complaint of chest pain. Patient states that he had some activity around the house and outside shopping he returned home and shoveled snow off his porch subsequently he felt very tired and had an uncomfortable feeling in his chest and decided to come to emergency room Patient has a past medial history significant for coronary artery disease with history of bypass graft surgery in 1994, he also has a history of diabetes mellitus, dyslipidemia, paroxysmal atrial fibrillation on long-term anticoagulation, hypertension, GERD and sleep apnea. He sees Dr. Woo in the office. On review of systems Patient is alert and oriented 3 in no apparent distress, at this time he is feeling well he denies any fatigue or weakness he denies any headache or dizziness no fever or chills no chest pain or shortness of breath no cough no nausea or vomiting no abdominal pain no diarrhea or constipation and no urinary symptoms. Past Medical History Past Medical History: Coronary Artery Disease (CAD), Cancer, Diabetes Mellitus, GERD/Reflux, Hyperlipidemia, Hypertension, Prostate Disorder, Sleep Apnea/CPAP/ BIPAP Additional Past Medical History / Comment(s): HX PROSTATE AND Skin CA. USES CPAP. History of Any Multi-Drug Resistant Organisms: MRSA Date of last positivie culture/infection: 06/04/16 MDRO Source:: Neck Past Surgical History: Coronary Bypass/CABG, Heart Catheterization Additional Past Surgical History / Comment(s): 1994 TRIPLE Bypass. Hemorrhoid. Bilat cataract,. Hiatal hernia 2012. Fatty tumor removed 2004. COLONOSCOPY , EGD, Cataract removal. Past Anesthesia/Blood Transfusion Reactions: No Reported Reaction Smoking Status: Former smoker - Past Family History Father Family Medical History: Congestive Heart Failure (CHF), Myocardial Infarction ( [place]), Respiratory Disorder Mother Additional Family Medical History / Comment(s): heart and resp issues from [employer] Medications and Allergies Home Medications Medication Instructions Recorded Confirmed Type Acetaminophen [Tylenol Arthritis] 1,300 mg PO BID 06/04/16 06/30/17 History Aspirin [Adult Low Dose Aspirin EC] 81 mg PO HS 06/04/16 06/30/17 History Cholecalciferol [Vitamin D3] 5,000 unit PO DAILY 06/04/16 06/30/17 History Diltiazem HCl 120 mg PO HS 06/04/16 06/30/17 History Loratadine 10 mg PO DAILY 06/04/16 06/30/17 History Losartan-Hctz 50-12.5 mg [Hyzaar 1 tab PO HS 06/04/16 06/30/17 History 50-12.5] Montelukast [Singulair] 10 mg PO DAILY 06/04/16 06/30/17 History Simvastatin [Zocor] 20 mg PO Q48H 06/04/16 06/30/17 History Vit C/E/Zinc/Lutein/Zeaxanthin 1 tab PO DAILY 06/04/16 06/30/17 [facility] Warfarin [Coumadin] 5 mg PO SUWE 06/04/16 06/30/17 History Warfarin [Coumadin] 7.5 mg PO MOTUTHFRSA 06/04/16 06/30/17 History Insulin Degludec [Tresiba 40 unit SQ HS 10/26/16 06/30/17 History Flextouch U-100] Metoprolol Tartrate [Lopressor] 12.5 mg PO DAILY 12/10/16 06/30/17 History Multivit-Min/FA/Lycopen/Lutein 1 tab PO DAILY 12/10/16 06/30/17 History [Centrum Silver Men Tablet] Celecoxib [CeleBREX] 200 mg PO DAILY 06/30/17 06/30/17 History Allergies Allergy/AdvReac Type Severity Reaction Status Date / Time Sulfa (Sulfonamide Allergy Itching Verified 06/30/17 20:42 Antibiotics) Physical Exam Vitals: Vital Signs Temp Pulse Pulse Resp BP BP Pulse Ox 07/01/17 12:00 97.8 F 60 18 125/67 94 L 07/01/17 08:00 97.6 F 54 L 18 104/58 96 07/01/17 04:00 98.3 F 54 L 16 95/51 95 06/30/17 23:50 16 06/30/17 23:17 97.7 F 55 L 16 96/54 94 L 06/30/17 21:41 16 06/30/17 20:48 97.6 F 53 L 16 117/66 96 06/30/17 20:07 98.7 F 60 18 105/63 96 06/30/17 19:00 97.9 F 54 L 18 116/67 98 06/30/17 18:00 54 L 18 121/68 94 L 06/30/17 17:43 98.2 F 56 L 17 128/69 96 06/30/17 16:30 58 L 18 183/84 96 06/30/17 16:03 98.4 F 60 20 185/80 99 Intake and Output 06/30/17 07/01/17 07/01/17 21:59 06:59 14:59 Other: # Voids Weight HEENT head normocephalic and atraumatic Neck is supple no JVD no goiter no lymphadenopathy Chest exam reveals a few scattered rhonchi no wheezing Cardiac exam reveals regular heart sounds S1 and S2 with 2/6 systolic murmur in the left sternal border no gallops no murmurs Abdomen is soft nontender no organomegaly with normal bowel sounds Extremity exam reveals no edema no cyanosis or clubbing Results CBC & Chem 7: 06/30/17 16:25 06/30/17 16:25 Labs: Abnormal Lab Results - Last 24 Hours (Table) 06/30/17 06/30/17 06/30/17 Range/Units 16:25 16:25 16:25 Hct 38.5 L (39.0-53.0) % MCV 79.0 L (80.0-100.0) fL Plt Count 135 L (150-450) k/uL PT (9.0-12.0) sec INR (<1.2) APTT (22.0-30.0) sec BUN 26 H (9-20) mg/dL Glucose 154 H (74-99) mg/dL POC Glucose (mg/dL) (75-99) mg/dL ALT <6 L (21-72) U/L CK-MB (CK-2) 2.7 H* (0.0-2.4) ng/mL Triglycerides (<150) mg/dL HDL Cholesterol (40-60) mg/dL 06/30/17 06/30/17 07/01/17 Range/Units 16:25 20:54 03:03 Hct (39.0-53.0) % MCV (80.0-100.0) fL Plt Count (150-450) k/uL PT 26.9 H (9.0-12.0) sec INR 3.0 H (<1.2) APTT 32.0 H (22.0-30.0) sec BUN (9-20) mg/dL Glucose (74-99) mg/dL POC Glucose (mg/dL) 114 H (75-99) mg/dL ALT (21-72) U/L CK-MB (CK-2) (0.0-2.4) ng/mL Triglycerides 191 H (<150) mg/dL HDL Cholesterol 29 L (40-60) mg/dL 07/01/17 07/01/17 Range/Units 07:02 11:59 Hct (39.0-53.0) % MCV (80.0-100.0) fL Plt Count (150-450) k/uL PT (9.0-12.0) sec INR (<1.2) APTT (22.0-30.0) sec BUN (9-20) mg/dL Glucose (74-99) mg/dL POC Glucose (mg/dL) 109 H 107 H (75-99) mg/dL ALT (21-72) U/L CK-MB (CK-2) (0.0-2.4) ng/mL Triglycerides (<150) mg/dL HDL Cholesterol (40-60) mg/dL Thrombosis Risk Factor Assmnt - Choose All That Apply Each Factor Represents 1 point: Obesity (BMI >25) Each Risk Factor Represents 3 Points: Age 75 years or older Thrombosis Risk Factor Assessment Total Risk Factor Score: 4 Thrombosis Risk Factor Assessment Level: Moderate Risk Assessment and Plan Plan: #1 episode of chest discomfort resolved, it's unclear whether this was in the lower chest or upper epigastric area, at this time symptoms have totally resolved. #2 underlying history of coronary artery disease with history of coronary artery bypass graft surgery in 1994 patient had cardiac catheterization with Dr. Woo in November 2016, that did not reveal any significant progression of his cardiac disease. #3 history of paroxysmal atrial fibrillation #4 underlying history of diabetes mellitus #5 underlying history of hypertension Patient is admitted to telemetry floor serial EKGs and cardiac enzymes are ordered cardiology consultation requested will follow during this admission for medical management
--- NOTE | 2017-07-01 14:28 | P.DS ---
Providers Date of admission: 06/30/17 19:49 Expected date of discharge: 07/01/17 Attending physician: Jenise Gillespie Consults: 06/30/17 19:49 Consult Physician Urgent Consulting Provider: Jyothi Woo Consult Reason/Comments: cp Do you want consulting provider notified?: Yes Primary care physician: [facility] Course: Diagnoses on discharge: #1 episode of chest discomfort resolved, it's unclear whether this was in the lower chest or upper epigastric area, at this time symptoms have totally resolved. #2 underlying history of coronary artery disease with history of coronary artery bypass graft surgery in 1994 patient had cardiac catheterization with Dr. Woo in November 2016, that did not reveal any significant progression of his cardiac disease. #3 history of paroxysmal atrial fibrillation #4 underlying history of diabetes mellitus #5 underlying history of hypertension #6 underlying history of osteoarthritis Hospital course: Jevon Clements is a 77-year-old male who presented to [facility] emergency room with a chief complaint of chest pain. Patient states that he had some activity around the house and outside shopping he returned home and shoveled snow off his porch subsequently he felt very tired and had an uncomfortable feeling in his chest and decided to come to emergency room Patient has a past medial history significant for coronary artery disease with history of bypass graft surgery in 1994, he also has a history of diabetes mellitus, dyslipidemia, paroxysmal atrial fibrillation on long-term anticoagulation, hypertension, GERD and sleep apnea. He sees Dr. Woo in the office. Patient was admitted to 24-hour observation and serial EKG and cardiac enzymes did not reveal any abnormality. Patient had cardiac catheterization was Dr. Woo in November 2016, he was evaluated by cardiology Dr. Dye and was cleared for discharge, patient should follow his his primary care physician within one week, and she would follow his his primary scrub technician Dr. Woo in 1-2 weeks. Patient was instructed not to take Celebrex, which she recently started taking, otherwise continue same home medications Plan - Discharge Summary New Discharge Prescriptions: Continue Warfarin [Coumadin] 5 mg PO SUWE Montelukast [Singulair] 10 mg PO DAILY Losartan-Hctz 50-12.5 mg [Hyzaar 50-12.5] 1 tab PO HS Vit C/E/Zinc/Lutein/Zeaxanthin [[facility]] 1 tab PO DAILY Loratadine 10 mg PO DAILY Aspirin [Adult Low Dose Aspirin EC] 81 mg PO HS Simvastatin [Zocor] 20 mg PO Q48H Acetaminophen [Tylenol Arthritis] 1,300 mg PO BID Cholecalciferol [Vitamin D3] 5,000 unit PO DAILY Warfarin [Coumadin] 7.5 mg PO MOTUTHFRSA Diltiazem HCl 120 mg PO HS Insulin Degludec [Tresiba Flextouch U-100] 40 unit SQ HS Metoprolol Tartrate [Lopressor] 12.5 mg PO DAILY Multivit-Min/FA/Lycopen/Lutein [Centrum Silver Men Tablet] 1 tab PO DAILY Discontinued Celecoxib [CeleBREX] 200 mg PO DAILY Discharge Medication List Acetaminophen [Tylenol Arthritis] 1,300 mg PO BID 06/04/16 [History] Aspirin [Adult Low Dose Aspirin EC] 81 mg PO HS 06/04/16 [History] Cholecalciferol [Vitamin D3] 5,000 unit PO DAILY 06/04/16 [History] Diltiazem HCl 120 mg PO HS 06/04/16 [History] Loratadine 10 mg PO DAILY 06/04/16 [History] Losartan-Hctz 50-12.5 mg [Hyzaar 50-12.5] 1 tab PO HS 06/04/16 [History] Montelukast [Singulair] 10 mg PO DAILY 06/04/16 [History] Simvastatin [Zocor] 20 mg PO Q48H 06/04/16 [History] Vit C/E/Zinc/Lutein/Zeaxanthin [[facility]] 1 tab PO DAILY 06/04 [History] Warfarin [Coumadin] 5 mg PO SUWE 06/04/16 [History] Warfarin [Coumadin] 7.5 mg PO MOTUTHFRSA 06/04/16 [History] Insulin Degludec [Tresiba Flextouch U-100] 40 unit SQ HS 10/26/16 [History] Metoprolol Tartrate [Lopressor] 12.5 mg PO DAILY 12/10/16 [History] Multivit-Min/FA/Lycopen/Lutein [Centrum Silver Men Tablet] 1 tab PO DAILY [History] Follow up Appointment(s)/Referral(s): MohinderAnisha ugarte DO [Primary Care Provider] - 1-2 days
[2017-07-01 19:47] LABS: Hemoglobin A1C 7.5 % (4.0-6.0)
[2017-07-01] MEDS ORDERED: WARFARIN 5 MG TAB PO SCH (21:21)
== END 2017-07-01 15:15 | disposition home or self-care (01) ==
LOC: EC 15:56 → 3OBS 19:49
PROVIDERS: ADMIT Internal Medicine; ATTEND Internal Medicine
DX: R07.89 Other chest pain (principal); I25.10 Atherosclerotic heart disease of native coronary artery without angina pectoris; I48.0 Paroxysmal atrial fibrillation; I10 Essential (primary) hypertension; I35.0 Nonrheumatic aortic (valve) stenosis; K21.9 Gastro-esophageal reflux disease without esophagitis; E78.5 Hyperlipidemia, unspecified; E11.9 Type 2 diabetes mellitus without complications; G47.30 Sleep apnea, unspecified; E66.9 Obesity, unspecified; Z68.25 Body mass index [BMI] 25.0-25.9, adult; M19.90 Unspecified osteoarthritis, unspecified site; N42.9 Disorder of prostate, unspecified; Z95.1 Presence of aortocoronary bypass graft; Z99.89 Dependence on other enabling machines and devices; Z79.82 Long term (current) use of aspirin; Z79.899 Other long term (current) drug therapy; Z79.01 Long term (current) use of anticoagulants; Z79.4 Long term (current) use of insulin; Z88.2 Allergy status to sulfonamides; Z86.14 Personal history of Methicillin resistant Staphylococcus aureus infection; Z87.891 Personal history of nicotine dependence; Z83.6 Family history of other diseases of the respiratory system; Z82.49 Family history of ischemic heart disease and other diseases of the circulatory system
CPT/HCPCS: 36415; 93005; 80061; 80053; 82550 ×2; 82553 ×2; 83735; 84484 ×2; 85025; 85610; 85730; 83036; 71046; 99285; G0378 ×2

== ENCOUNTER → 2017-11-19 | Outpatient (CLI) | payer MEDICARE, BC ==
--- NOTE | 2017-11-19 13:55 | NM ---
EXAMINATION TYPE: NM bone scan whole body DATE OF EXAM: 11/19/2017 COMPARISON: NONE HISTORY: Metastatic prostate cancer. Delayed whole-body scanning was performed following the injection of 23.9 mCi Tc 99m MDP. Images acq uired 3 hours post injection. FINDINGS: There are innumerable osseous metastatic lesions seen including involvement of the bilateral ribs, th e thoracic and lumbar spine, the pelvis including prominent uptake left acetabulum and bilateral sacr um, bilateral proximal femur lesions, and several lesions in the right humerus including prominent le candace in the right humeral head. IMPRESSION: Diffuse osseous metastatic disease. No prior study for comparison.
== END | disposition home or self-care (01) ==
LOC: RADNMMAIN 09:28
PROVIDERS: ATTEND Family Medicine
DX: C79.51 Secondary malignant neoplasm of bone (principal); C61 Malignant neoplasm of prostate
CPT/HCPCS: 78306; A9503

== ENCOUNTER 2017-11-28 19:46 | Emergency (ER) | payer MEDICARE, BC ==
[2017-11-28] MEDS ORDERED: SODIUM CHLORIDE 0.9% 1,000 ML IV STA (20:13)
[2017-11-28 20:23] LABS: Glucose,Whole Blood 172 mg/dL (75-99)
--- NOTE | 2017-11-28 20:53 | ED ---
General Adult HPI - General Chief complaint: Weakness Stated complaint: lethargy Time Seen by Provider: 11/28/17 20:03 Source: patient Mode of arrival: wheelchair Limitations: no limitations - History of Present Illness Initial comments: 77 years old male comes in with the history of coronary artery disease, diabetes , hyperlipidemia, prostate cancer. Unfortunately prostate CA is quite metastatic to the spine and ribs he has a history of atrial fibrillation is on a Coumadin suspect that his hemoglobin is low because he is quite short winded he said there are minimal exertion makes him very tired. Denies any bloody stool denies any blood in the urine he is not currently getting any chemo or radiation - Related Data Home Medications Medication Instructions Recorded Confirmed Acetaminophen [Tylenol Arthritis] 1,300 mg PO BID 06/04/16 11/28/17 Aspirin [Adult Low Dose Aspirin EC] 81 mg PO HS 06/04/16 11/28/17 Cholecalciferol [Vitamin D3] 5,000 unit PO DAILY 06/04/16 11/28/17 Diltiazem HCl 120 mg PO HS 06/04/16 11/28/17 Loratadine 10 mg PO DAILY 06/04/16 11/28/17 Montelukast [Singulair] 10 mg PO DAILY 06/04/16 11/28/17 Vit C/E/Zinc/Lutein/Zeaxanthin 1 tab PO DAILY 06/04/16 11/28/17 [[facility]] Warfarin [Coumadin] 5 mg PO SUWE 06/04/16 11/28/17 Warfarin [Coumadin] 7.5 mg PO MOTUTHFRSA 06/04/16 11/28/17 Insulin Degludec [Tresiba 40 unit SQ HS 10/26/16 11/28/17 Flextouch U-100] Metoprolol Tartrate [Lopressor] 12.5 mg PO DAILY 12/10/16 11/28/17 Multivit-Min/FA/Lycopen/Lutein 1 tab PO DAILY 12/10/16 11/28/17 [Centrum Silver Men Tablet] Bicalutamide [Casodex] 50 mg PO DAILY 11/28/17 11/28/17 Celecoxib [CeleBREX] 200 mg PO DAILY 11/28/17 11/28/17 Insulin NPH Hum/Reg Insulin Hm See Protocol SQ DIRECTED PRN 11/28/17 11/28/17 [NovoLIN 70-30 100 UNIT/ML VIAL] Losartan [Cozaar] 50 mg PO DAILY 11/28/17 11/28/17 Omeprazole 20 mg PO AC-BRKFST 11/28/17 11/28/17 Simvastatin 40 mg PO DAILY 11/28/17 11/28/17 Allergies Allergy/AdvReac Type Severity Reaction Status Date / Time Sulfa (Sulfonamide Allergy Itching Verified 11/28/17 21:01 Antibiotics) Review of Systems ROS Statement: Those systems with pertinent positive or pertinent negative responses have been documented in the HPI. ROS Other: All systems not noted in ROS Statement are negative. Past Medical History Past Medical History: Coronary Artery Disease (CAD), Cancer, Diabetes Mellitus, GERD/Reflux, Hyperlipidemia, Hypertension, Prostate Disorder, Sleep Apnea/CPAP/ BIPAP Additional Past Medical History / Comment(s): HX PROSTATE AND Skin CA. USES CPAP. History of Any Multi-Drug Resistant Organisms: MRSA Date of last positivie culture/infection: 06/04/16 MDRO Source:: Neck Past Surgical History: Coronary Bypass/CABG, Heart Catheterization Additional Past Surgical History / Comment(s): 1994 TRIPLE Bypass. Hemorrhoid. Bilat cataract,. Hiatal hernia 2012. Fatty tumor removed 2004. COLONOSCOPY , EGD, Cataract removal. Past Anesthesia/Blood Transfusion Reactions: No Reported Reaction Past Psychological History: No Psychological Hx Reported Smoking Status: Former smoker Past Alcohol Use History: Rare Past Drug Use History: None Reported - Past Family History Father Family Medical History: Congestive Heart Failure (CHF), Myocardial Infarction ( [place]), Respiratory Disorder Mother Additional Family Medical History / Comment(s): heart and resp issues from [employer] General Exam - General Exam Comments Initial Comments: General: The patient is awake and alert, in no distress, and does not appear acutely ill. Skin: Skin is warm and dry and no rashes or lesions are noted. Eye: Pupils are equal, round and reactive to light, extra-ocular movements are intact; there is normal conjunctiva bilaterally. Ears, nose, mouth and throat: There are moist mucous membranes and no oral lesions. Neck: The neck is supple, there is no tenderness or JVD. Cardiovascular: There is a regular rate and rhythm. No murmur, rub or gallop is appreciated. Respiratory: To auscultation bilateral, no wheezing no rhonchi no distress respiratory vasquez noticed Gastrointestinal: Soft, non-distended, non-tender abdomen without masses or organomegaly noted. There is no rebound or guarding present. Bowel sounds are unremarkable. Back: There is no tenderness to palpation in the midline. There is no obvious deformity. Musculoskeletal: Normal ROM, no tenderness, There is no pedal edema. There is no calf tenderness or swelling. No cords were appreciated. Neurological: CN II-XII intact, Cranial nerves III through XII are intact. There are no obvious motor or sensory deficits. Coordination appears grossly intact. Speech is normal. Psychiatric: Cooperative, appropriate mood & affect, normal judgment. Limitations: no limitations Course Vital Signs 11/28/17 11/28/17 19:49 21:33 Temperature 99.5 F 99.4 F Pulse Rate 90 81 Respiratory 18 16 Rate Blood Pressure 154/72 O2 Sat by Pulse 97 Oximetry Labs were reviewed, hemoglobin is 9.5 urinalysis is unremarkable chest x-ray ruled out any pneumonia no UTIs patient looks clinically very could discuss these labs with him and now his previous hemoglobin was 9.9 and he feels that maybe weakness he felt that was from dehydration and he didn't eat whole day and is a diabetic he was to go home and he will follow up with his family doctor. EKG Findings - EKG Comments: EKG Findings:: EKG is sinus ventricular rate is 88 [place] interval is 210 QRS duration is 84 QT/QTC 338/408 review of this EKG does not reveal any ST elevation or ST depression Medical Decision Making - Lab Data Result diagrams: 11/28/17 20:23 11/28/17 20:23 Lab Results 11/28/17 11/28/17 11/28/17 Range/Units 20:20 20:23 20:23 WBC 10.4 (3.8-10.6) k/uL RBC 4.48 (4.30-5.90) m/uL Hgb 9.5 L (13.0-17.5) gm/dL Hct 30.5 L (39.0-53.0) % MCV 68.2 L (80.0-100.0) fL MCH 21.2 L (25.0-35.0) pg MCHC 31.1 (31.0-37.0) g/dL RDW 15.8 H (11.5-15.5) % Plt Count 152 (150-450) k/uL Neutrophils % 82 % Lymphocytes % 9 % Monocytes % 7 % Eosinophils % 1 % Basophils % 0 % Neutrophils # 8.5 H (1.3-7.7) k/uL Lymphocytes # 0.9 L (1.0-4.8) k/uL Monocytes # 0.7 (0-1.0) k/uL Eosinophils # 0.1 (0-0.7) k/uL Basophils # 0.0 (0-0.2) k/uL Hypochromasia Marked Microcytosis Marked PT (9.0-12.0) sec INR (<1.2) APTT (22.0-30.0) sec Sodium (137-145) mmol/L Potassium (3.5-5.1) mmol/L Chloride (98-107) mmol/L Carbon Dioxide (22-30) mmol/L Anion Gap mmol/L BUN (9-20) mg/dL Creatinine (0.66-1.25) mg/dL Est GFR (CKD-EPI)AfAm (>60 ml/min/1.73 sqM) Est GFR (CKD-EPI)NonAf (>60 ml/min/1.73 sqM) Glucose (74-99) mg/dL POC Glucose (mg/dL) 172 H (75-99) mg/dL POC Glu Contract Technical Writer ID Raúl Sigala Plasma Lactic Acid Earl (0.7-2.0) mmol/L Calcium (8.4-10.2) mg/dL Total Bilirubin (0.2-1.3) mg/dL AST (17-59) U/L ALT (21-72) U/L Alkaline Phosphatase (38-126) U/L Total Creatine Kinase 56 (55-170) U/L CK-MB (CK-2) 0.9 (0.0-2.4) ng/mL CK-MB (CK-2) Rel Index 1.6 Troponin I <0.012 (0.000-0.034) ng/mL Total Protein (6.3-8.2) g/dL Albumin (3.5-5.0) g/dL Urine Color Urine Appearance (Clear) Urine pH (5.0-8.0) Ur Specific [place] (1.001-1.035) Urine Protein (Negative) Urine Glucose (UA) (Negative) Urine Ketones (Negative) Urine Blood (Negative) Urine Nitrite (Negative) Urine Bilirubin (Negative) Urine Urobilinogen (<2.0) mg/dL Ur Leukocyte Esterase (Negative) 11/28/17 11/28/17 11/28/17 Range/Units 20:23 20:23 20:23 WBC (3.8-10.6) k/uL RBC (4.30-5.90) m/uL Hgb (13.0-17.5) gm/dL Hct (39.0-53.0) % MCV (80.0-100.0) fL MCH (25.0-35.0) pg MCHC (31.0-37.0) g/dL RDW (11.5-15.5) % Plt Count (150-450) k/uL Neutrophils % % Lymphocytes % % Monocytes % % Eosinophils % % Basophils % % Neutrophils # (1.3-7.7) k/uL Lymphocytes # (1.0-4.8) k/uL Monocytes # (0-1.0) k/uL Eosinophils # (0-0.7) k/uL Basophils # (0-0.2) k/uL Hypochromasia Microcytosis PT 21.4 H (9.0-12.0) sec INR 2.4 H (<1.2) APTT 29.5 (22.0-30.0) sec Sodium 133 L (137-145) mmol/L Potassium 4.6 (3.5-5.1) mmol/L Chloride 101 (98-107) mmol/L Carbon Dioxide 22 (22-30) mmol/L Anion Gap 10 mmol/L BUN 22 H (9-20) mg/dL Creatinine 0.70 (0.66-1.25) mg/dL Est GFR (CKD-EPI)AfAm >90 (>60 ml/min/1.73 sqM) Est GFR (CKD-EPI)NonAf >90 (>60 ml/min/1.73 sqM) Glucose 162 H (74-99) mg/dL POC Glucose (mg/dL) (75-99) mg/dL POC Glu Contract Technical Writer ID Plasma Lactic Acid Earl 1.2 (0.7-2.0) mmol/L Calcium 8.3 L (8.4-10.2) mg/dL Total Bilirubin 0.4 (0.2-1.3) mg/dL AST 40 (17-59) U/L ALT 16 L (21-72) U/L Alkaline Phosphatase 294 H (38-126) U/L Total Creatine Kinase (55-170) U/L CK-MB (CK-2) (0.0-2.4) ng/mL CK-MB (CK-2) Rel Index Troponin I (0.000-0.034) ng/mL Total Protein 6.4 (6.3-8.2) g/dL Albumin 3.7 (3.5-5.0) g/dL Urine Color Urine Appearance (Clear) Urine pH (5.0-8.0) Ur Specific [place] (1.001-1.035) Urine Protein (Negative) Urine Glucose (UA) (Negative) Urine Ketones (Negative) Urine Blood (Negative) Urine Nitrite (Negative) Urine Bilirubin (Negative) Urine Urobilinogen (<2.0) mg/dL Ur Leukocyte Esterase (Negative) 11/28/17 Range/Units 20:55 WBC (3.8-10.6) k/uL RBC (4.30-5.90) m/uL Hgb (13.0-17.5) gm/dL Hct (39.0-53.0) % MCV (80.0-100.0) fL MCH (25.0-35.0) pg MCHC (31.0-37.0) g/dL RDW (11.5-15.5) % Plt Count (150-450) k/uL Neutrophils % % Lymphocytes % % Monocytes % % Eosinophils % % Basophils % % Neutrophils # (1.3-7.7) k/uL Lymphocytes # (1.0-4.8) k/uL Monocytes # (0-1.0) k/uL Eosinophils # (0-0.7) k/uL Basophils # (0-0.2) k/uL Hypochromasia Microcytosis PT (9.0-12.0) sec INR (<1.2) APTT (22.0-30.0) sec Sodium (137-145) mmol/L Potassium (3.5-5.1) mmol/L Chloride (98-107) mmol/L Carbon Dioxide (22-30) mmol/L Anion Gap mmol/L BUN (9-20) mg/dL Creatinine (0.66-1.25) mg/dL Est GFR (CKD-EPI)AfAm (>60 ml/min/1.73 sqM) Est GFR (CKD-EPI)NonAf (>60 ml/min/1.73 sqM) Glucose (74-99) mg/dL POC Glucose (mg/dL) (75-99) mg/dL POC Glu Contract Technical Writer ID Plasma Lactic Acid Earl (0.7-2.0) mmol/L Calcium (8.4-10.2) mg/dL Total Bilirubin (0.2-1.3) mg/dL AST (17-59) U/L ALT (21-72) U/L Alkaline Phosphatase (38-126) U/L Total Creatine Kinase (55-170) U/L CK-MB (CK-2) (0.0-2.4) ng/mL CK-MB (CK-2) Rel Index Troponin I (0.000-0.034) ng/mL Total Protein (6.3-8.2) g/dL Albumin (3.5-5.0) g/dL Urine Color Light Yellow Urine Appearance Clear (Clear) Urine pH 5.5 (5.0-8.0) Ur Specific [place] 1.011 (1.001-1.035) Urine Protein Negative (Negative) Urine Glucose (UA) Negative (Negative) Urine Ketones Negative (Negative) Urine Blood Negative (Negative) Urine Nitrite Negative (Negative) Urine Bilirubin Negative (Negative) Urine Urobilinogen <2.0 (<2.0) mg/dL Ur Leukocyte Esterase Negative (Negative) Disposition Clinical Impression: Generalized weakness Disposition: HOME SELF-CARE Condition: Good Instructions: Anemia (ED) Additional Instructions: Condition is advised to not skip meals and keep himself well-hydrated and return to the ER if symptoms get worse Is patient prescribed a controlled substance at d/c from ED?: No Referrals: Anisha Vines DO [Primary Care Provider] - 1-2 days
--- NOTE | 2017-11-28 20:57 | XR ---
EXAMINATION TYPE: XR chest 2V DATE OF EXAM: 11/28/2017 COMPARISON: 06/30/2017 HISTORY: Weakness TECHNIQUE: Frontal and lateral views of the chest are obtained. FINDINGS: There is no heart failure nor confluent pneumonic infiltrate. Heart size is normal. There are sternal wires. Costophrenic angles are clear. There are chest leads. Bony thorax appears intact. IMPRESSION: No active cardiopulmonary disease. No change.
[2017-11-28 21:07] LABS: Basophils % (A) 0 %; Eosinophils # (A) 0.1 k/uL (0-0.7); Eosinophils % (A) 1 %; HCT 30.5 % (39.0-53.0); HGB 9.5 gm/dL (13.0-17.5); Hypochromasia Marked; Lymphocytes # (A) 0.9 k/uL (1.0-4.8); Lymphocytes % (A) 9 %; MCH 21.2 pg (25.0-35.0); MCHC 31.1 g/dL (31.0-37.0); MCV 68.2 fL (80.0-100.0); Mean Platelet Volume 6.5; Microcytosis Marked; Monocytes # (A) 0.7 k/uL (0-1.0); Monocytes % (A) 7 %; Neutrophils # (A) 8.5 k/uL (1.3-7.7); Neutrophils % (A) 82 %; Platelet Count 152 k/uL (150-450); RBC 4.48 m/uL (4.30-5.90); RDW 15.8 % (11.5-15.5); WBC 10.4 k/uL (3.8-10.6)
[2017-11-28 21:08] LABS: Appearance,Urine Clear (Clear); Bilirubin,Urine Negative (Negative); Blood,Urine Negative (Negative); Color,Urine Light Yellow; Glucose,Urine (UA) Negative (Negative); Ketones,Urine Negative (Negative); Leukocyte Esterase,Urine Negative (Negative); Nitrite,Urine Negative (Negative); PH, Urine 5.5 (5.0-8.0); Protein,Urine Negative (Negative); Specific Gravity,Urine 1.011 (1.001-1.035); Urobilinogen,Urine <2.0 mg/dL (<2.0)
[2017-11-28 21:16] LABS: INR 2.4 (<1.2); Partial Thromboplastin Time 29.5 sec (22.0-30.0); Prothrombin Time 21.4 sec (9.0-12.0)
[2017-11-28] MEDS ORDERED: MORPHINE SULFATE 4 MG/ML SYRINGE IVP STA (21:21)
[2017-11-28] MEDS ORDERED: ONDANSETRON 4 MG/2 ML VIAL IVP STA (21:22)
[2017-11-28 21:24] LABS: ALT 16 U/L (21-72); AST 40 U/L (17-59); Albumin 3.7 g/dL (3.5-5.0); Alkaline Phosphatase 294 U/L (38-126); Anion Gap 10 mmol/L; Blood Urea Nitrogen 22 mg/dL (9-20); Calcium 8.3 mg/dL (8.4-10.2); Carbon Dioxide 22 mmol/L (22-30); Chloride 101 mmol/L (98-107); Creatine Kinase 56 U/L (55-170); Glucose 162 mg/dL (74-99); Potassium 4.6 mmol/L (3.5-5.1); Sodium 133 mmol/L (137-145); Total Bilirubin 0.4 mg/dL (0.2-1.3); Total Protein 6.4 g/dL (6.3-8.2)
[2017-11-28 21:34] VITALS: PULSE 81; RESP 16; TEMP 99.4
[2017-11-28 21:36] LABS: Creatine Kinase MB 0.9 ng/mL (0.0-2.4); Troponin I <0.012 ng/mL (0.000-0.034)
[2017-11-28 22:24] VITALS: BP 142/65
== END 2017-11-28 21:59 | disposition home or self-care (01) ==
LOC: EC 19:46
DX: R53.1 Weakness (principal); I25.10 Atherosclerotic heart disease of native coronary artery without angina pectoris; E11.9 Type 2 diabetes mellitus without complications; K21.9 Gastro-esophageal reflux disease without esophagitis; E78.5 Hyperlipidemia, unspecified; I10 Essential (primary) hypertension; G47.30 Sleep apnea, unspecified; Z99.89 Dependence on other enabling machines and devices; N42.9 Disorder of prostate, unspecified; Z87.891 Personal history of nicotine dependence; Z86.14 Personal history of Methicillin resistant Staphylococcus aureus infection; Z85.46 Personal history of malignant neoplasm of prostate; Z85.828 Personal history of other malignant neoplasm of skin; Z79.4 Long term (current) use of insulin; Z79.01 Long term (current) use of anticoagulants; Z79.82 Long term (current) use of aspirin; Z79.899 Other long term (current) drug therapy; Z88.2 Allergy status to sulfonamides; Z95.1 Presence of aortocoronary bypass graft; Z95.818 Presence of other cardiac implants and grafts
CPT/HCPCS: 36415; 93005; 80053; 82550; 82553; 83605; 84484; 85025; 85610; 85730; 81003; 87040; 87086; 71046; 99285; 96374; 96375; 96361; J2270; J2405

== ENCOUNTER → 2017-12-08 | Outpatient (CLI) | payer MEDICARE, BC ==
--- NOTE | 2017-12-08 17:08 | PE ---
EXAMINATION TYPE: PET CT fusion skull to thigh DATE OF EXAM: 12/08/2017 COMPARISON: Nuclear medicine whole body bone scan November 19, 2017 HISTORY: Prostate cancer progress study . Diagnosed 2007. TECHNIQUE: Following the intravenous administration of 14.225 mCi of F-18 FDG, whole body images are performed from the skull base to the midthigh. Images are reviewed on the computer in the coronal, axial, and sagittal planes. Reconstructed rotating images are created on independent workstation and reviewed on the computer. A noncontrast CT is performed in conjunction with the PET scan. SCAN: Subsequent Scan FINDINGS: SKULL BASE AND NECK: No suspicious hypermetabolic uptake. CHEST, MEDIASTINUM, AND HILAR REGION: No suspicious hypermetabolic uptake. ABDOMEN AND PELVIS: No suspicious hypermetabolic uptake. OSSEOUS STRUCTURES: Corresponding to recent nuclear medicine study there are innumerable ill-defined sclerotic foci with mild hypermetabolic uptake, for reference proximal right humeral lesion axial cristofer ge 60 shows max SUV of 3.09. Involvement there are L3 vertebra with max SUV of 4.11. OTHER CT: Scleral calcification both globes is present. Post CABG changes with mediastinal clips and sternal wires is identified. Mild cardiomegaly is presen t. Small degree of bilateral gynecomastia is noted. There is moderate to severe calcified plaque in the abdominal aorta extending into branch vessels. There is suspicious asymmetric soft tissue in the left aspect of prostatic bed versus opposite right side could reflect asymmetrically prominent left seminal vesicle, correlation with surgical history a dvised. Prostate is suspected surgically absent. There are suspicious left-sided perirectal subcentim eter lymph nodes for reference roughly 4 are noted axial image 211 for reference one of larger lymph nodes is noted axial image 219 measuring 10 x 6 mm. There is extension into the left periaortic level with 11 x 8 mm lymph node axial image 175 noted. IMPRESSION: Diffuse osseous metastatic disease shows mild hypermetabolic uptake. Suspicious left pelv ic periRectal and retroperitoneal adenopathy in the mid to lower abdomen does not show hypermetabolic uptake. Suspicious tissue prostate bed left greater than right is noted also without abnormal hyperm etabolic uptake worrisome for neoplastic recurrence.
== END ==
LOC: RADPETMAIN 13:45
PROVIDERS: ATTEND Family Medicine
DX: C79.9 Secondary malignant neoplasm of unspecified site (principal); C61 Malignant neoplasm of prostate; E11.9 Type 2 diabetes mellitus without complications
CPT/HCPCS: 78815; A9552

== ENCOUNTER 2018-01-11 18:16 | Emergency (ER) | payer MEDICARE, BC ==
[2018-01-11] MEDS ORDERED: PANTOPRAZOLE 40 MG/10 ML VIAL IVP STA (19:39)
[2018-01-11] MEDS ORDERED: SODIUM CHLORIDE 0.9% 1,000 ML IV STA (19:39)
--- NOTE | 2018-01-11 20:01 | ED ---
General Adult HPI - General Chief complaint: Recheck/Abnormal Lab/Rx Stated complaint: Low Hemoglobin Time Seen by Provider: 01/11/18 19:38 Source: patient, RN notes reviewed, old records reviewed Mode of arrival: ambulatory Limitations: no limitations - History of Present Illness Initial comments: this is a 77-year-old male the ER for evasive anemia. 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 Anemia of chronic disease and this patient's case is related to prostate CA. Patient has had prior transfusion. No current nausea vomiting, no blood in vomit, no current diarrhea or blood in stool. does admit to mild fatigue but no complaints of pain - Related Data Home Medications Medication Instructions Recorded Confirmed Aspirin [Adult Low Dose Aspirin EC] 81 mg PO HS 06/04/16 01/11/18 Cholecalciferol [Vitamin D3] 5,000 unit PO DAILY 06/04/16 01/11/18 Diltiazem HCl 120 mg PO HS 06/04/16 01/11/18 Montelukast [Singulair] 10 mg PO DAILY 06/04/16 01/11/18 Vit C/E/Zinc/Lutein/Zeaxanthin 1 tab PO DAILY 06/04/16 01/11/18 [facility] Warfarin [Coumadin] 5 mg PO SUWE 06/04/16 01/11/18 Warfarin [Coumadin] 7.5 mg PO MOTUTHFRSA 06/04/16 01/11/18 Insulin Degludec [Tresiba 40 unit SQ HS 10/26/16 01/11/18 Flextouch U-100] Metoprolol Tartrate [Lopressor] 12.5 mg PO DAILY 12/10/16 01/11/18 Multivit-Min/FA/Lycopen/Lutein 1 tab PO DAILY 12/10/16 01/11/18 [Centrum Silver Men Tablet] Bicalutamide [Casodex] 50 mg PO DAILY 11/28/17 01/11/18 Celecoxib [CeleBREX] 200 mg PO DAILY 11/28/17 01/11/18 Insulin NPH Hum/Reg Insulin Hm See Protocol SQ DIRECTED PRN 11/28/17 01/11/18 [NovoLIN 70-30 100 UNIT/ML VIAL] Losartan [Cozaar] 50 mg PO DAILY 11/28/17 01/11/18 Omeprazole 20 mg PO AC-BRKFST 11/28/17 01/11/18 Simvastatin 40 mg PO DAILY 11/28/17 01/11/18 Allergies Allergy/AdvReac Type Severity Reaction Status Date / Time Sulfa (Sulfonamide Allergy Itching Verified 01/11/18 19:58 Antibiotics) Review of Systems ROS Statement: Those systems with pertinent positive or pertinent negative responses have been documented in the HPI. ROS Other: All systems not noted in ROS Statement are negative. Past Medical History Past Medical History: Coronary Artery Disease (CAD), Cancer, Diabetes Mellitus, GERD/Reflux, Hyperlipidemia, Hypertension, Prostate Disorder, Sleep Apnea/CPAP/ BIPAP Additional Past Medical History / Comment(s): HX PROSTATE AND Skin CA. USES CPAP. History of Any Multi-Drug Resistant Organisms: MRSA Date of last positivie culture/infection: 06/04/16 MDRO Source:: Neck Past Surgical History: Coronary Bypass/CABG, Heart Catheterization Additional Past Surgical History / Comment(s): 1994 TRIPLE Bypass. Hemorrhoid. Bilat cataract,. Hiatal hernia 2012. Fatty tumor removed 2004. COLONOSCOPY , EGD, Cataract removal. Past Anesthesia/Blood Transfusion Reactions: No Reported Reaction Past Psychological History: No Psychological Hx Reported Smoking Status: Former smoker Past Alcohol Use History: Rare Past Drug Use History: None Reported - Past Family History Father Family Medical History: Congestive Heart Failure (CHF), Myocardial Infarction ( [place]), Respiratory Disorder Mother Additional Family Medical History / Comment(s): heart and resp issues from [employer] General Exam Limitations: no limitations General appearance: alert, in no apparent distress Head exam: Present: atraumatic, normocephalic, normal inspection Eye exam: Present: normal appearance, PERRL, EOMI. Absent: scleral icterus, conjunctival injection, periorbital swelling ENT exam: Present: normal exam, mucous membranes moist Neck exam: Present: normal inspection. Absent: tenderness, meningismus, lymphadenopathy Respiratory exam: Present: normal lung sounds bilaterally. Absent: respiratory distress, wheezes, rales, rhonchi, stridor Cardiovascular Exam: Present: regular rate, normal rhythm, normal heart sounds. Absent: systolic murmur, diastolic murmur, rubs, gallop, clicks GI/Abdominal exam: Present: soft, normal bowel sounds. Absent: distended, tenderness, guarding, rebound, rigid Extremities exam: Present: normal inspection, full ROM, normal capillary refill. Absent: tenderness, pedal edema, joint swelling, calf tenderness Back exam: Present: normal inspection Neurological exam: Present: alert, oriented X3, CN II-XII intact Psychiatric exam: Present: normal affect, normal mood Skin exam: Present: warm, dry, intact, normal color. Absent: rash Course Vital Signs 01/11/18 01/11/18 01/11/18 18:56 20:36 21:32 Temperature 99.5 F 98.8 F Pulse Rate 79 94 74 Respiratory 18 18 18 Rate Blood Pressure 125/55 136/76 146/67 O2 Sat by Pulse 98 96 98 Oximetry 01/11/18 01/11/18 01/11/18 21:34 22:04 23:06 Temperature 98.6 F 97.8 F 98.7 F Pulse Rate 74 75 77 Respiratory 17 17 18 Rate Blood Pressure 135/61 159/70 142/69 O2 Sat by Pulse 97 98 97 Oximetry 01/11/18 23:47 Temperature 98.9 F Pulse Rate 73 Respiratory 18 Rate Blood Pressure 146/80 O2 Sat by Pulse 96 Oximetry - Reevaluation(s) Reevaluation #1: patient has no active bleeding here in the ER Reevaluation #2: spoke with patient's primary care physician EKG Findings - EKG Comments: EKG Findings:: EKG shows sinus rhythm rate of 76, [place] 216, QRS 80, QTC 436 Medical Decision Making - Medical Decision Making 77 male here ER for evaluation, low hemoglobin secondary to chronic prostate CA , chronic anemia. Patient given transfusional discharged home - Lab Data Result diagrams: 01/11/18 20:04 01/11/18 20:04 Lab Results 01/11/18 01/11/18 01/11/18 Range/Units 20:04 20:04 20:04 WBC 7.1 (3.8-10.6) k/uL RBC 3.70 L (4.30-5.90) m/uL Hgb 7.5 L (13.0-17.5) gm/dL Hct 25.2 L (39.0-53.0) % MCV 68.2 L (80.0-100.0) fL MCH 20.3 L (25.0-35.0) pg MCHC 29.7 L (31.0-37.0) g/dL RDW 18.1 H (11.5-15.5) % Plt Count 141 L (150-450) k/uL Neutrophils % 74 % Lymphocytes % 15 % Monocytes % 6 % Eosinophils % 2 % Basophils % 0 % Neutrophils # 5.2 (1.3-7.7) k/uL Lymphocytes # 1.0 (1.0-4.8) k/uL Monocytes # 0.4 (0-1.0) k/uL Eosinophils # 0.1 (0-0.7) k/uL Basophils # 0.0 (0-0.2) k/uL Hypochromasia Marked Poikilocytosis Slight Anisocytosis Slight Microcytosis Marked PT (9.0-12.0) sec INR (<1.2) APTT (22.0-30.0) sec Sodium 137 (137-145) mmol/L Potassium 4.9 (3.5-5.1) mmol/L Chloride 106 (98-107) mmol/L Carbon Dioxide 22 (22-30) mmol/L Anion Gap 9 mmol/L BUN 19 (9-20) mg/dL Creatinine 0.94 (0.66-1.25) mg/dL Est GFR (CKD-EPI)AfAm >90 (>60 ml/min/1.73 sqM) Est GFR (CKD-EPI)NonAf 78 (>60 ml/min/1.73 sqM) Glucose 152 H (74-99) mg/dL Calcium 7.0 L (8.4-10.2) mg/dL Magnesium 2.2 (1.6-2.3) mg/dL Total Bilirubin 0.3 (0.2-1.3) mg/dL AST 15 L (17-59) U/L ALT 15 L (21-72) U/L Alkaline Phosphatase 196 H (38-126) U/L Total Creatine Kinase 59 (55-170) U/L CK-MB (CK-2) 1.2 (0.0-2.4) ng/mL CK-MB (CK-2) Rel Index 2.0 Troponin I <0.012 (0.000-0.034) ng/mL Total Protein 6.3 (6.3-8.2) g/dL Albumin 3.6 (3.5-5.0) g/dL Blood Type Blood Type Confirm Blood Type Recheck Antibody Screen Crossmatch Spec Expiration Date 01/11/18 01/11/18 01/11/18 Range/Units 20:04 20:04 20:58 WBC (3.8-10.6) k/uL RBC (4.30-5.90) m/uL Hgb (13.0-17.5) gm/dL Hct (39.0-53.0) % MCV (80.0-100.0) fL MCH (25.0-35.0) pg MCHC (31.0-37.0) g/dL RDW (11.5-15.5) % Plt Count (150-450) k/uL Neutrophils % % Lymphocytes % % Monocytes % % Eosinophils % % Basophils % % Neutrophils # (1.3-7.7) k/uL Lymphocytes # (1.0-4.8) k/uL Monocytes # (0-1.0) k/uL Eosinophils # (0-0.7) k/uL Basophils # (0-0.2) k/uL Hypochromasia Poikilocytosis Anisocytosis Microcytosis PT 17.1 H (9.0-12.0) sec INR 1.9 H (<1.2) APTT 28.5 (22.0-30.0) sec Sodium (137-145) mmol/L Potassium (3.5-5.1) mmol/L Chloride (98-107) mmol/L Carbon Dioxide (22-30) mmol/L Anion Gap mmol/L BUN (9-20) mg/dL Creatinine (0.66-1.25) mg/dL Est GFR (CKD-EPI)AfAm (>60 ml/min/1.73 sqM) Est GFR (CKD-EPI)NonAf (>60 ml/min/1.73 sqM) Glucose (74-99) mg/dL Calcium (8.4-10.2) mg/dL Magnesium (1.6-2.3) mg/dL Total Bilirubin (0.2-1.3) mg/dL AST (17-59) U/L ALT (21-72) U/L Alkaline Phosphatase (38-126) U/L Total Creatine Kinase (55-170) U/L CK-MB (CK-2) (0.0-2.4) ng/mL CK-MB (CK-2) Rel Index Troponin I (0.000-0.034) ng/mL Total Protein (6.3-8.2) g/dL Albumin (3.5-5.0) g/dL Blood Type O Positive Blood Type Confirm O Positive Blood Type Recheck CABO Indicated Antibody Screen NEGATIVE Crossmatch See Detail Spec Expiration Date 01/14/2018 - 2303 Disposition Clinical Impression: Anemia Disposition: HOME SELF-CARE Condition: Good Instructions: Anemia (ED) Is patient prescribed a controlled substance at d/c from ED?: No Referrals: Anisha Vines DO [Primary Care Provider] - 1-2 days
[2018-01-11 20:13] LABS: Anisocytosis Slight; Basophils % (A) 0 %; Eosinophils # (A) 0.1 k/uL (0-0.7); Eosinophils % (A) 2 %; HCT 25.2 % (39.0-53.0); HGB 7.5 gm/dL (13.0-17.5); Hypochromasia Marked; Lymphocytes % (A) 15 %; MCH 20.3 pg (25.0-35.0); MCHC 29.7 g/dL (31.0-37.0); MCV 68.2 fL (80.0-100.0); Mean Platelet Volume 8.8; Microcytosis Marked; Monocytes # (A) 0.4 k/uL (0-1.0); Monocytes % (A) 6 %; Neutrophils # (A) 5.2 k/uL (1.3-7.7); Neutrophils % (A) 74 %; Platelet Count 141 k/uL (150-450); Poikilocytosis Slight; RDW 18.1 % (11.5-15.5); WBC 7.1 k/uL (3.8-10.6)
[2018-01-11 20:22] LABS: INR 1.9 (<1.2); Partial Thromboplastin Time 28.5 sec (22.0-30.0); Prothrombin Time 17.1 sec (9.0-12.0)
[2018-01-11 20:28] LABS: ALT 15 U/L (21-72); AST 15 U/L (17-59); Albumin 3.6 g/dL (3.5-5.0); Alkaline Phosphatase 196 U/L (38-126); Anion Gap 9 mmol/L; Blood Urea Nitrogen 19 mg/dL (9-20); Carbon Dioxide 22 mmol/L (22-30); Chloride 106 mmol/L (98-107); Glucose 152 mg/dL (74-99); Magnesium 2.2 mg/dL (1.6-2.3); Potassium 4.9 mmol/L (3.5-5.1); Sodium 137 mmol/L (137-145); Total Bilirubin 0.3 mg/dL (0.2-1.3); Total Protein 6.3 g/dL (6.3-8.2)
[2018-01-11 20:33] LABS: Creatine Kinase 59 U/L (55-170)
[2018-01-11 20:46] LABS: Creatine Kinase MB 1.2 ng/mL (0.0-2.4); Troponin I <0.012 ng/mL (0.000-0.034)
[2018-01-11 23:06] VITALS: RESP 18
[2018-01-11 23:48] VITALS: BP 146/80; PULSE 73; TEMP 98.9
== END 2018-01-11 23:46 | disposition home or self-care (01) ==
LOC: EC 18:16
DX: D64.9 Anemia, unspecified (principal); C61 Malignant neoplasm of prostate; I25.10 Atherosclerotic heart disease of native coronary artery without angina pectoris; E11.9 Type 2 diabetes mellitus without complications; K21.9 Gastro-esophageal reflux disease without esophagitis; E78.5 Hyperlipidemia, unspecified; I10 Essential (primary) hypertension; G47.30 Sleep apnea, unspecified; Z87.891 Personal history of nicotine dependence; Z95.1 Presence of aortocoronary bypass graft; Z95.5 Presence of coronary angioplasty implant and graft; Z79.82 Long term (current) use of aspirin; Z79.01 Long term (current) use of anticoagulants; Z79.4 Long term (current) use of insulin; Z79.899 Other long term (current) drug therapy; Z88.2 Allergy status to sulfonamides
CPT/HCPCS: 36415; 93005; 86900; 86901; 80053; 82550; 82553; 83735; 84484; 85025; 85610; 85730; 86850; 86920; 99284; 96374; 96361 ×3; P9016; C9113

== ENCOUNTER → 2018-03-22 | Outpatient (CLI) | payer MEDICARE, BC ==
--- NOTE | 2018-03-22 13:52 | NM ---
EXAMINATION TYPE: NM bone scan whole body DATE OF EXAM: 03/22/2018 COMPARISON: 11/19/2017 HISTORY: Metastatic Prostate carcinoma Delayed whole-body scanning was performed following the injection of 25.4 mCi Tc 99m MDP. Images acq uired 3 hours post injection. FINDINGS: New lesions: None Progressive lesions: None Improved lesions: None Stable lesions: Metastatic lesions of the bilateral ribs, thoracic and lumbar spine, pelvis, right hu merus, bilateral proximal femora are all stable. IMPRESSION: Stable metastatic lesions.
== END | disposition home or self-care (01) ==
LOC: RADNMMAIN 09:39
PROVIDERS: ATTEND Urology
DX: C79.51 Secondary malignant neoplasm of bone (principal); C61 Malignant neoplasm of prostate; Z88.2 Allergy status to sulfonamides
CPT/HCPCS: 78306; A9503

== ENCOUNTER 2018-05-04 10:07 | Emergency (ER) | payer MEDICARE, BC ==
--- NOTE | 2018-05-04 10:42 | ED ---
Weakness HPI - General Chief complaint: Weakness Stated complaint: weakness, chest pressure Time Seen by Provider: 05/04/18 10:13 Source: patient, RN notes reviewed Mode of arrival: ambulatory Limitations: no limitations - History of Present Illness Initial comments: This is a 78-year-old male with a history of prostate cancer who is been on hormone therapy for the past 3 months who presents today with complaints of generalized weakness. He has had iron deficiency he has had have iron infusion him blood transfusion the past the last one was in February of this past year. He denies any fevers chills nausea vomiting does occasionally have hot flashes and sweats he believes is secondary to the hormone. Patient does have a history of open-heart surgery additional prostate cancer. He does state that today he had some brief chest discomfort he felt his heart beating more prominently than usual this was short-lived. No overt exertional dyspnea he just feels generally wiped out and fatigued. He has seen his doctor during the past week with blood work is not sure with blood work showed as it was not back yet. Patient also states she has a history of a heart murmur is had for a long time additionally his sister is present with him and states that he does appear pale and more so than usual. MD Complaint: generalized weakness - Related Data Home Medications Medication Instructions Recorded Confirmed Aspirin [Adult Low Dose Aspirin EC] 81 mg PO HS 06/04/16 05/04/18 Diltiazem HCl 120 mg PO HS 06/04/16 05/04/18 Montelukast [Singulair] 10 mg PO DAILY 06/04/16 05/04/18 Warfarin [Coumadin] 5 mg PO SUWE 06/04/16 05/04/18 Warfarin [Coumadin] 7.5 mg PO MOTUTHFRSA 06/04/16 05/04/18 Bicalutamide [Casodex] 50 mg PO DAILY 11/28/17 05/04/18 Losartan [Cozaar] 50 mg PO DAILY 11/28/17 05/04/18 Omeprazole 20 mg PO AC-BRKFST 11/28/17 05/04/18 Simvastatin 40 mg PO DIRECTED 11/28/17 05/04/18 Baclofen [Lioresal] 20 mg PO BID 05/04/18 05/04/18 Escitalopram [Lexapro] 5 mg PO DAILY 05/04/18 05/04/18 Loratadine [Claritin] 10 mg PO DAILY 05/04/18 05/04/18 Sertraline [Zoloft] 25 mg PO DAILY 05/04/18 05/04/18 Zolpidem [Ambien] 10 mg PO HS PRN 05/04/18 05/04/18 Allergies Allergy/AdvReac Type Severity Reaction Status Date / Time Sulfa (Sulfonamide Allergy Itching Verified 05/04/18 10:12 Antibiotics) Review of Systems ROS Statement: Those systems with pertinent positive or pertinent negative responses have been documented in the HPI. ROS Other: All systems not noted in ROS Statement are negative. Past Medical History Past Medical History: Coronary Artery Disease (CAD), Cancer, Diabetes Mellitus, GERD/Reflux, Hyperlipidemia, Hypertension, Prostate Disorder, Sleep Apnea/CPAP/ BIPAP Additional Past Medical History / Comment(s): HX PROSTATE AND Skin CA. USES CPAP. 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 Hemorrhoid. Bilat cataract,. Hiatal hernia 2012. Fatty tumor removed 2004. COLONOSCOPY , EGD, Cataract removal. Past Anesthesia/Blood Transfusion Reactions: No Reported Reaction Past Psychological History: Depression Smoking Status: Former smoker Past Alcohol Use History: None Reported Past Drug Use History: None Reported - Past Family History Father Family Medical History: Congestive Heart Failure (CHF), Myocardial Infarction ( [place]), Respiratory Disorder Mother Additional Family Medical History / Comment(s): heart and resp issues from [employer] General Exam - General Exam Comments Initial Comments: This is a well-developed well-nourished awake alert oriented times 3 male Limitations: no limitations General appearance: alert, in no apparent distress Head exam: Present: atraumatic, normocephalic, normal inspection Eye exam: Present: normal appearance, PERRL, EOMI. Absent: scleral icterus, conjunctival injection, periorbital swelling ENT exam: Present: normal exam, mucous membranes moist Neck exam: Present: normal inspection. Absent: tenderness, meningismus, lymphadenopathy Respiratory exam: Present: normal lung sounds bilaterally. Absent: respiratory distress, wheezes, rales, rhonchi, stridor Cardiovascular Exam: Present: regular rate, normal rhythm, normal heart sounds, systolic murmur. Absent: diastolic murmur, rubs, gallop, clicks GI/Abdominal exam: Present: soft, normal bowel sounds. Absent: distended, tenderness, guarding, rebound, rigid Extremities exam: Present: normal inspection, full ROM, normal capillary refill. Absent: tenderness, pedal edema, joint swelling, calf tenderness Back exam: Present: normal inspection Neurological exam: Present: alert, oriented X3, CN II-XII intact Psychiatric exam: Present: normal affect, normal mood Skin exam: Present: warm, intact, diaphoretic (Family diaphoretic), pallor. Absent: rash Course Vital Signs 05/04/18 05/04/18 05/04/18 10:09 10:34 11:00 Temperature 98.3 F Pulse Rate 58 L 55 L 53 L Respiratory 18 11 L 6 L Rate Blood Pressure 159/77 139/65 O2 Sat by Pulse 99 97 98 Oximetry 05/04/18 05/04/18 05/04/18 11:04 11:30 12:00 Temperature Pulse Rate 54 L 53 L Respiratory 16 10 L 12 Rate Blood Pressure 123/56 127/77 O2 Sat by Pulse 96 95 Oximetry 05/04/18 05/04/18 12:30 13:00 Temperature Pulse Rate 53 L 53 L Respiratory 13 8 L Rate Blood Pressure 132/64 130/76 O2 Sat by Pulse 97 96 Oximetry EKG Findings - EKG Results: EKG: interpreted by ERMD (Sinus bradycardia with first-degree AV block rate was 55. Interval to 48 QRS 106 QT since QTC 398/380 evidence of old inferior changes nonspecific anterior configuration this is compared to an EKG dated 01/11) Medical Decision Making - Medical Decision Making I did a long discussion with the patient I did reevaluate him on several occasions he is feeling improved after IV fluids no further workup is indicated this time he will be discharged follow-up with his doctor as planned. - Lab Data Result diagrams: 05/04/18 10:45 05/04/18 10:45 Lab Results 05/04/18 05/04/18 05/04/18 Range/Units 10:45 10:45 10:45 WBC 7.4 (3.8-10.6) k/uL RBC 4.98 (4.30-5.90) m/uL Hgb 10.8 L (13.0-17.5) gm/dL Hct 35.5 L (39.0-53.0) % MCV 71.4 L (80.0-100.0) fL MCH 21.8 L (25.0-35.0) pg MCHC 30.5 L (31.0-37.0) g/dL RDW 19.3 H (11.5-15.5) % Plt Count 178 (150-450) k/uL Neutrophils % 80 % Lymphocytes % 11 % Monocytes % 6 % Eosinophils % 1 % Basophils % 0 % Neutrophils # 6.0 (1.3-7.7) k/uL Lymphocytes # 0.8 L (1.0-4.8) k/uL Monocytes # 0.4 (0-1.0) k/uL Eosinophils # 0.1 (0-0.7) k/uL Basophils # 0.0 (0-0.2) k/uL Hypochromasia Marked Anisocytosis Slight Microcytosis Marked PT (9.0-12.0) sec INR (<1.2) APTT (22.0-30.0) sec Sodium 134 L (137-145) mmol/L Potassium 5.2 H (3.5-5.1) mmol/L Chloride 101 (98-107) mmol/L Carbon Dioxide 24 (22-30) mmol/L Anion Gap 9 mmol/L BUN 17 (9-20) mg/dL Creatinine 0.81 (0.66-1.25) mg/dL Est GFR (CKD-EPI)AfAm >90 (>60 ml/min/1.73 sqM) Est GFR (CKD-EPI)NonAf 85 (>60 ml/min/1.73 sqM) Glucose 148 H (74-99) mg/dL Plasma Lactic Acid Earl (0.7-2.0) mmol/L Calcium 9.1 (8.4-10.2) mg/dL Magnesium 2.0 (1.6-2.3) mg/dL Total Bilirubin 0.4 (0.2-1.3) mg/dL AST 21 (17-59) U/L ALT 20 L (21-72) U/L Alkaline Phosphatase 47 (38-126) U/L Total Creatine Kinase 42 L (55-170) U/L CK-MB (CK-2) 0.8 (0.0-2.4) ng/mL CK-MB (CK-2) Rel Index 1.9 Troponin I <0.012 (0.000-0.034) ng/mL NT-Pro-B Natriuret Pep pg/mL Total Protein 7.0 (6.3-8.2) g/dL Albumin 4.3 (3.5-5.0) g/dL Urine Color Urine Appearance (Clear) Urine pH (5.0-8.0) Ur Specific [place] (1.001-1.035) Urine Protein (Negative) Urine Glucose (UA) (Negative) Urine Ketones (Negative) Urine Blood (Negative) Urine Nitrite (Negative) Urine Bilirubin (Negative) Urine Urobilinogen (<2.0) mg/dL Ur Leukocyte Esterase (Negative) 05/04/18 05/04/18 05/04/18 Range/Units 10:45 10:45 10:58 WBC (3.8-10.6) k/uL RBC (4.30-5.90) m/uL Hgb (13.0-17.5) gm/dL Hct (39.0-53.0) % MCV (80.0-100.0) fL MCH (25.0-35.0) pg MCHC (31.0-37.0) g/dL RDW (11.5-15.5) % Plt Count (150-450) k/uL Neutrophils % % Lymphocytes % % Monocytes % % Eosinophils % % Basophils % % Neutrophils # (1.3-7.7) k/uL Lymphocytes # (1.0-4.8) k/uL Monocytes # (0-1.0) k/uL Eosinophils # (0-0.7) k/uL Basophils # (0-0.2) k/uL Hypochromasia Anisocytosis Microcytosis PT 17.0 H (9.0-12.0) sec INR 1.7 H (<1.2) APTT 28.3 (22.0-30.0) sec Sodium (137-145) mmol/L Potassium (3.5-5.1) mmol/L Chloride (98-107) mmol/L Carbon Dioxide (22-30) mmol/L Anion Gap mmol/L BUN (9-20) mg/dL Creatinine (0.66-1.25) mg/dL Est GFR (CKD-EPI)AfAm (>60 ml/min/1.73 sqM) Est GFR (CKD-EPI)NonAf (>60 ml/min/1.73 sqM) Glucose (74-99) mg/dL Plasma Lactic Acid Earl 1.1 (0.7-2.0) mmol/L Calcium (8.4-10.2) mg/dL Magnesium (1.6-2.3) mg/dL Total Bilirubin (0.2-1.3) mg/dL AST (17-59) U/L ALT (21-72) U/L Alkaline Phosphatase (38-126) U/L Total Creatine Kinase (55-170) U/L CK-MB (CK-2) (0.0-2.4) ng/mL CK-MB (CK-2) Rel Index Troponin I (0.000-0.034) ng/mL NT-Pro-B Natriuret Pep 237 pg/mL Total Protein (6.3-8.2) g/dL Albumin (3.5-5.0) g/dL Urine Color Urine Appearance (Clear) Urine pH (5.0-8.0) Ur Specific [place] (1.001-1.035) Urine Protein (Negative) Urine Glucose (UA) (Negative) Urine Ketones (Negative) Urine Blood (Negative) Urine Nitrite (Negative) Urine Bilirubin (Negative) Urine Urobilinogen (<2.0) mg/dL Ur Leukocyte Esterase (Negative) 05/04/18 Range/Units 13:04 WBC (3.8-10.6) k/uL RBC (4.30-5.90) m/uL Hgb (13.0-17.5) gm/dL Hct (39.0-53.0) % MCV (80.0-100.0) fL MCH (25.0-35.0) pg MCHC (31.0-37.0) g/dL RDW (11.5-15.5) % Plt Count (150-450) k/uL Neutrophils % % Lymphocytes % % Monocytes % % Eosinophils % % Basophils % % Neutrophils # (1.3-7.7) k/uL Lymphocytes # (1.0-4.8) k/uL Monocytes # (0-1.0) k/uL Eosinophils # (0-0.7) k/uL Basophils # (0-0.2) k/uL Hypochromasia Anisocytosis Microcytosis PT (9.0-12.0) sec INR (<1.2) APTT (22.0-30.0) sec Sodium (137-145) mmol/L Potassium (3.5-5.1) mmol/L Chloride (98-107) mmol/L Carbon Dioxide (22-30) mmol/L Anion Gap mmol/L BUN (9-20) mg/dL Creatinine (0.66-1.25) mg/dL Est GFR (CKD-EPI)AfAm (>60 ml/min/1.73 sqM) Est GFR (CKD-EPI)NonAf (>60 ml/min/1.73 sqM) Glucose (74-99) mg/dL Plasma Lactic Acid Earl (0.7-2.0) mmol/L Calcium (8.4-10.2) mg/dL Magnesium (1.6-2.3) mg/dL Total Bilirubin (0.2-1.3) mg/dL AST (17-59) U/L ALT (21-72) U/L Alkaline Phosphatase (38-126) U/L Total Creatine Kinase (55-170) U/L CK-MB (CK-2) (0.0-2.4) ng/mL CK-MB (CK-2) Rel Index Troponin I (0.000-0.034) ng/mL NT-Pro-B Natriuret Pep pg/mL Total Protein (6.3-8.2) g/dL Albumin (3.5-5.0) g/dL Urine Color Light Yellow Urine Appearance Clear (Clear) Urine pH 6.5 (5.0-8.0) Ur Specific [place] 1.006 (1.001-1.035) Urine Protein Negative (Negative) Urine Glucose (UA) Negative (Negative) Urine Ketones Negative (Negative) Urine Blood Negative (Negative) Urine Nitrite Negative (Negative) Urine Bilirubin Negative (Negative) Urine Urobilinogen <2.0 (<2.0) mg/dL Ur Leukocyte Esterase Negative (Negative) - Radiology Data Radiology results: report reviewed (Imaging shows no acute findings.), image reviewed Disposition Clinical Impression: Weakness generalized, Chronic anemia, Dehydration Disposition: HOME SELF-CARE Condition: Good Instructions: Iron Rich Diet (ED), Anemia (ED), Dehydration (ED) Is patient prescribed a controlled substance at d/c from ED?: No Referrals: Anisha Vines DO [Primary Care Provider] - 1-2 days
[2018-05-04 10:58] LABS: Anisocytosis Slight; Basophils % (A) 0 %; Eosinophils # (A) 0.1 k/uL (0-0.7); Eosinophils % (A) 1 %; HCT 35.5 % (39.0-53.0); HGB 10.8 gm/dL (13.0-17.5); Hypochromasia Marked; Lymphocytes # (A) 0.8 k/uL (1.0-4.8); Lymphocytes % (A) 11 %; MCH 21.8 pg (25.0-35.0); MCHC 30.5 g/dL (31.0-37.0); MCV 71.4 fL (80.0-100.0); Mean Platelet Volume 6.4; Microcytosis Marked; Monocytes # (A) 0.4 k/uL (0-1.0); Monocytes % (A) 6 %; Neutrophils % (A) 80 %; Platelet Count 178 k/uL (150-450); RBC 4.98 m/uL (4.30-5.90); RDW 19.3 % (11.5-15.5); WBC 7.4 k/uL (3.8-10.6)
[2018-05-04 11:07] LABS: ALT 20 U/L (21-72); AST 21 U/L (17-59); Albumin 4.3 g/dL (3.5-5.0); Alkaline Phosphatase 47 U/L (38-126); Anion Gap 9 mmol/L; Blood Urea Nitrogen 17 mg/dL (9-20); Calcium 9.1 mg/dL (8.4-10.2); Carbon Dioxide 24 mmol/L (22-30); Chloride 101 mmol/L (98-107); Glucose 148 mg/dL (74-99); Potassium 5.2 mmol/L (3.5-5.1); Sodium 134 mmol/L (137-145); Total Bilirubin 0.4 mg/dL (0.2-1.3)
[2018-05-04 11:18] LABS: INR 1.7 (<1.2); Partial Thromboplastin Time 28.3 sec (22.0-30.0)
[2018-05-04 11:29] LABS: Creatine Kinase 42 U/L (55-170)
[2018-05-04 11:42] LABS: Creatine Kinase MB 0.8 ng/mL (0.0-2.4); Troponin I <0.012 ng/mL (0.000-0.034)
[2018-05-04] MEDS ORDERED: SODIUM CHLORIDE 0.9% 500 ML 500 ML IV STA (12:32)
--- NOTE | 2018-05-04 13:14 | XR ---
EXAMINATION TYPE: XR chest 2V DATE OF EXAM: 05/04/2018 HISTORY: Weakness. REFERENCE: Previous study dated 11/28/2017. FINDINGS: There has been a midline sternotomy. There is some platelike atelectasis at the left lung base. Lungs otherwise clear. Pleural spaces are clear. The heart is not enlarged. IMPRESSION: MINIMAL ATELECTASIS, LEFT LUNG BASE.
[2018-05-04 13:17] LABS: Appearance,Urine Clear (Clear); Bilirubin,Urine Negative (Negative); Blood,Urine Negative (Negative); Color,Urine Light Yellow; Glucose,Urine (UA) Negative (Negative); Ketones,Urine Negative (Negative); Leukocyte Esterase,Urine Negative (Negative); Nitrite,Urine Negative (Negative); PH, Urine 6.5 (5.0-8.0); Protein,Urine Negative (Negative); Specific Gravity,Urine 1.006 (1.001-1.035); Urobilinogen,Urine <2.0 mg/dL (<2.0)
[2018-05-04 13:59] VITALS: BP 138/68; PULSE 61; RESP 17; TEMP 98
== END 2018-05-04 14:04 | disposition home or self-care (01) ==
LOC: EC 10:07
DX: E86.0 Dehydration (principal); D50.9 Iron deficiency anemia, unspecified; R61 Generalized hyperhidrosis; R07.89 Other chest pain; C79.51 Secondary malignant neoplasm of bone; E78.5 Hyperlipidemia, unspecified; I10 Essential (primary) hypertension; I25.10 Atherosclerotic heart disease of native coronary artery without angina pectoris; K21.9 Gastro-esophageal reflux disease without esophagitis; G47.30 Sleep apnea, unspecified; F32.9 Major depressive disorder, single episode, unspecified; Z87.891 Personal history of nicotine dependence; Z88.2 Allergy status to sulfonamides; Z79.01 Long term (current) use of anticoagulants; Z79.82 Long term (current) use of aspirin; Z79.890 Hormone replacement therapy; Z79.899 Other long term (current) drug therapy; Z86.14 Personal history of Methicillin resistant Staphylococcus aureus infection; Z99.89 Dependence on other enabling machines and devices; Z85.46 Personal history of malignant neoplasm of prostate; Z85.828 Personal history of other malignant neoplasm of skin; Z95.1 Presence of aortocoronary bypass graft; Z82.49 Family history of ischemic heart disease and other diseases of the circulatory system
CPT/HCPCS: 36415; 71046; 80053; 81003; 82550; 82553; 83605; 83735; 83880; 84484; 85025; 85610; 85730; 93005; 96360; 99285

== ENCOUNTER 2018-09-28 08:54 | Observation (INO) | payer MEDICARE, BC ==
[2018-09-28] MEDS ORDERED: ASPIRIN 81 MG PO STA (09:10)
[2018-09-28] MEDS ORDERED: NITROGLYCERIN OINT 1 INCH/GM PACKET TOPICAL STA (09:10)
--- NOTE | 2018-09-28 09:14 | ED ---
General Adult HPI - General Chief complaint: Chest Pain Stated complaint: ALICIA Tightnes in Chest Time Seen by Provider: 09/28/18 09:00 Source: patient, RN notes reviewed Mode of arrival: wheelchair Limitations: no limitations - History of Present Illness Initial comments: This is a 78-year-old male with past medical history significant for prostate cancer, bypass surgery in 1994, diabetes and high blood pressure. Patient states for the last month he's been dealing with sinus problems and sinus drainage. Patient states over the last couple of days he has had quite a bit of sputum production and quite a cough. Patient states he's also been short of breath and it been experiencing some chest heaviness. Patient states the heaviness and shortness of breath feel like he is just exerted himself. Patient states she's had no fever or chills. Patient denies any diaphoretic episodes. Patient denies any lightheadedness dizziness or near syncopal episode. Patient denies any headache patient denies numbness weakness. Patient denies any edema to the legs or calf tenderness. Patient denies any recent injury or trauma. - Related Data Home Medications Medication Instructions Recorded Confirmed Aspirin [Adult Low Dose Aspirin EC] 81 mg PO QAM 06/04/16 09/28/18 Diltiazem HCl 120 mg PO HS 06/04/16 09/28/18 Montelukast [Singulair] 10 mg PO DAILY 06/04/16 09/28/18 Warfarin [Coumadin] 5 mg PO SUWE 06/04/16 09/28/18 Warfarin [Coumadin] 7.5 mg PO MOTUTHFRSA 06/04/16 09/28/18 Bicalutamide [Casodex] 50 mg PO DAILY 11/28/17 09/28/18 Simvastatin 40 mg PO Q48H 11/28/17 09/28/18 Baclofen [Lioresal] 20 mg PO BID PRN 05/04/18 09/28/18 Loratadine [Claritin] 10 mg PO HS 05/04/18 09/28/18 Zolpidem [Ambien] 10 mg PO HS PRN 05/04/18 09/28/18 Acetaminophen [Tylenol Arthritis] 1,300 mg PO BID PRN 09/28/18 09/28/18 C,E,Zinc,Copper 11/Dyhuv7o/Lut 1 cap PO DAILY 09/28/18 09/28/18 [Ocuvite Adult 50 Plus Softgel] Calcium Carbonate 1,000 mg PO DAILY 09/28/18 09/28/18 Cholecalciferol [Vitamin D3 (25 5,000 unit PO DAILY 09/28/18 09/28/18 Mcg = 1000 Iu)] Docusate [Colace] 100 mg PO DAILY PRN 09/28/18 09/28/18 INSULIN ASPART (NovoLOG) [NovoLOG 3 - 5 unit SQ TID-W/MEALS 09/28/18 09/28/18 (formulary)] Insulin Degludec [Tresiba] 48 units SQ HS 09/28/18 09/28/18 Losartan-Hctz 50-12.5 mg [Hyzaar 1 tab PO HS 09/28/18 09/28/18 50-12.5] Metoprolol Tartrate [Lopressor] 12.5 mg PO QAM 09/28/18 09/28/18 Multivitamins, Thera [Multivitamin 1 tab PO DAILY 09/28/18 09/28/18 (formulary)] Sertraline [Zoloft] 50 mg PO DAILY 09/28/18 09/28/18 Allergies Allergy/AdvReac Type Severity Reaction Status Date / Time Sulfa (Sulfonamide Allergy Itching Verified 09/28/18 09:47 Antibiotics) Review of Systems ROS Statement: Those systems with pertinent positive or pertinent negative responses have been documented in the HPI. ROS Other: All systems not noted in ROS Statement are negative. Past Medical History Past Medical History: Coronary Artery Disease (CAD), Cancer, Diabetes Mellitus, GERD/Reflux, Hyperlipidemia, Hypertension, Prostate Disorder, Sleep Apnea/CPAP/BIPAP Additional Past Medical History / Comment(s): HX PROSTATE AND Skin CA. USES CPAP. 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 Hemorrhoid. Bilat cataract,. Hiatal hernia 2012. Fatty tumor removed 2004. COLONOSCOPY, EGD, Cataract removal. Past Anesthesia/Blood Transfusion Reactions: No Reported Reaction Past Psychological History: Depression Smoking Status: Former smoker Past Alcohol Use History: None Reported Past Drug Use History: None Reported - Past Family History Father Family Medical History: Congestive Heart Failure (CHF), Myocardial Infarction ([place]), Respiratory Disorder Mother Additional Family Medical History / Comment(s): heart and resp issues from [employer] General Exam - General Exam Comments Initial Comments: GENERAL: Patient is well-developed and well-nourished. Patient is nontoxic and well- hydrated and is in mild distress. ENT: Neck is soft and supple. No significant lymphadenopathy is noted. Oropharynx is clear. Moist mucous membranes. Neck has full range of motion without eliciting any pain. EYES: The sclera were anicteric and conjunctiva were pink and moist. Extraocular movements were intact and pupils were equal round and reactive to light. Eyelids were unremarkable. PULMONARY: Unlabored respirations. Good breath sounds bilaterally. No audible rales rhonchi or wheezing was noted. CARDIOVASCULAR: There is a regular rate and rhythm without any murmurs gallops or rubs. ABDOMEN: Soft and nontender with normal bowel sounds. SKIN: Skin is clear with no lesions or rashes and otherwise unremarkable. NEUROLOGIC: Patient is alert and oriented x3. Cranial nerves II through XII are grossly intact. Motor and sensory are also intact. Normal speech, volume and content. Symmetrical smile. MUSCULOSKELETAL: Normal extremities with adequate strength and full range of motion. No lower extremity swelling or edema. No calf tenderness. LYMPHATICS: No significant lymphadenopathy is noted PSYCHIATRIC: Normal psychiatric evaluation. Limitations: no limitations Course Vital Signs 09/28/18 09/28/18 08:57 10:28 Temperature 98.6 F Pulse Rate 53 L 55 L Respiratory 18 16 Rate Blood Pressure 151/75 109/68 O2 Sat by Pulse 98 99 Oximetry Medical Decision Making - Medical Decision Making EKG shows sinus bradycardia at 54 bpm PA interval is 242 QRS is 98 QT interval 408 QTC is 386. Patient's EKG shows no ST segment elevation or depression. Patient's troponin was elevated. So brought the patient and the hospital and admitted him. I spoke with Dr. Gillespie he agreed to admit the patient admitted the patient and wrote admitting orders and consult cardiology. - Lab Data Result diagrams: 09/28/18 09:25 09/28/18 09:25 Lab Results 09/28/18 09/28/18 09/28/18 Range/Units 09:25 09:25 09:25 WBC 7.8 (3.8-10.6) k/uL RBC 4.53 (4.30-5.90) m/uL Hgb 13.1 (13.0-17.5) gm/dL Hct 39.3 (39.0-53.0) % MCV 86.7 (80.0-100.0) fL MCH 28.9 (25.0-35.0) pg MCHC 33.3 (31.0-37.0) g/dL RDW 12.8 (11.5-15.5) % Plt Count 151 (150-450) k/uL Neutrophils % 85 % Lymphocytes % 8 % Monocytes % 4 % Eosinophils % 1 % Basophils % 0 % Neutrophils # 6.6 (1.3-7.7) k/uL Lymphocytes # 0.7 L (1.0-4.8) k/uL Monocytes # 0.3 (0-1.0) k/uL Eosinophils # 0.1 (0-0.7) k/uL Basophils # 0.0 (0-0.2) k/uL PT 18.5 H (9.0-12.0) sec INR 1.9 H (<1.2) APTT 32.3 H (22.0-30.0) sec D-Dimer 0.19 (<0.60) mg/L FEU Sodium 135 L (137-145) mmol/L Potassium 5.5 H (3.5-5.1) mmol/L Chloride 99 (98-107) mmol/L Carbon Dioxide 25 (22-30) mmol/L Anion Gap 11 mmol/L BUN 20 (9-20) mg/dL Creatinine 0.81 (0.66-1.25) mg/dL Est GFR (CKD-EPI)AfAm >90 (>60 ml/min/1.73 sqM) Est GFR (CKD-EPI)NonAf 85 (>60 ml/min/1.73 sqM) Glucose 289 H (74-99) mg/dL Calcium 9.1 (8.4-10.2) mg/dL Magnesium 2.0 (1.6-2.3) mg/dL Total Bilirubin 0.6 (0.2-1.3) mg/dL AST 37 (17-59) U/L ALT 17 L (21-72) U/L Alkaline Phosphatase 47 (38-126) U/L Troponin I (0.000-0.034) ng/mL Total Protein 7.2 (6.3-8.2) g/dL Albumin 4.4 (3.5-5.0) g/dL 09/28/18 Range/Units 09:25 WBC (3.8-10.6) k/uL RBC (4.30-5.90) m/uL Hgb (13.0-17.5) gm/dL Hct (39.0-53.0) % MCV (80.0-100.0) fL MCH (25.0-35.0) pg MCHC (31.0-37.0) g/dL RDW (11.5-15.5) % Plt Count (150-450) k/uL Neutrophils % % Lymphocytes % % Monocytes % % Eosinophils % % Basophils % % Neutrophils # (1.3-7.7) k/uL Lymphocytes # (1.0-4.8) k/uL Monocytes # (0-1.0) k/uL Eosinophils # (0-0.7) k/uL Basophils # (0-0.2) k/uL PT (9.0-12.0) sec INR (<1.2) APTT (22.0-30.0) sec D-Dimer (<0.60) mg/L FEU Sodium (137-145) mmol/L Potassium (3.5-5.1) mmol/L Chloride (98-107) mmol/L Carbon Dioxide (22-30) mmol/L Anion Gap mmol/L BUN (9-20) mg/dL Creatinine (0.66-1.25) mg/dL Est GFR (CKD-EPI)AfAm (>60 ml/min/1.73 sqM) Est GFR (CKD-EPI)NonAf (>60 ml/min/1.73 sqM) Glucose (74-99) mg/dL Calcium (8.4-10.2) mg/dL Magnesium (1.6-2.3) mg/dL Total Bilirubin (0.2-1.3) mg/dL AST (17-59) U/L ALT (21-72) U/L Alkaline Phosphatase (38-126) U/L Troponin I 0.068 H* (0.000-0.034) ng/mL Total Protein (6.3-8.2) g/dL Albumin (3.5-5.0) g/dL Disposition Clinical Impression: Unstable angina pectoris Disposition: ADMITTED IP TO THIS HOSP Referrals: Anisha Vines DO [Primary Care Provider] - 1-2 days Time of Disposition: 11:28
--- NOTE | 2018-09-28 09:38 | XR ---
EXAMINATION TYPE: XR chest 2V DATE OF EXAM: 09/28/2018 HISTORY: Chest Pain. REFERENCE: Previous study dated 05/04/2018. FINDINGS: There has been a midline sternotomy. Lung volumes are mildly prominent. There is chronic scarring or atelectasis at the left lung base. Ri ght lung appears clear. Pleural spaces are clear. IMPRESSION: 1. CHRONIC ATELECTASIS OR SCARRING LEFT LUNG BASE. 2. PLEASE CORRELATE FOR COPD.
[2018-09-28 09:39] LABS: Basophils % (A) 0 %; Eosinophils # (A) 0.1 k/uL (0-0.7); Eosinophils % (A) 1 %; HCT 39.3 % (39.0-53.0); HGB 13.1 gm/dL (13.0-17.5); Lymphocytes # (A) 0.7 k/uL (1.0-4.8); Lymphocytes % (A) 8 %; MCH 28.9 pg (25.0-35.0); MCHC 33.3 g/dL (31.0-37.0); MCV 86.7 fL (80.0-100.0); Mean Platelet Volume 7.1; Monocytes # (A) 0.3 k/uL (0-1.0); Monocytes % (A) 4 %; Neutrophils # (A) 6.6 k/uL (1.3-7.7); Neutrophils % (A) 85 %; Platelet Count 151 k/uL (150-450); RBC 4.53 m/uL (4.30-5.90); RDW 12.8 % (11.5-15.5); WBC 7.8 k/uL (3.8-10.6)
[2018-09-28 09:56] LABS: African American GFR (CKD) >90 (>60 ml/min/1.73 sqM); Albumin 4.4 g/dL (3.5-5.0); Anion Gap 11 mmol/L; Blood Urea Nitrogen 20 mg/dL (9-20); Calcium 9.1 mg/dL (8.4-10.2); Carbon Dioxide 25 mmol/L (22-30); Chloride 99 mmol/L (98-107); Glucose 289 mg/dL (74-99); Sodium 135 mmol/L (137-145); Total Bilirubin 0.6 mg/dL (0.2-1.3); Total Protein 7.2 g/dL (6.3-8.2)
[2018-09-28 09:57] LABS: Potassium 5.5 mmol/L (3.5-5.1)
[2018-09-28 09:58] LABS: ALT 17 U/L (21-72); AST 37 U/L (17-59); Alkaline Phosphatase 47 U/L (38-126)
[2018-09-28 10:25] LABS: INR 1.9 (<1.2)
[2018-09-28 10:26] LABS: D-Dimer 0.19 mg/L FEU (<0.60); Partial Thromboplastin Time 32.3 sec (22.0-30.0); Prothrombin Time 18.5 sec (9.0-12.0)
[2018-09-28] MEDS ORDERED: NITROGLYCERIN SL TABS 0.4 MG TAB SUBLINGUAL PRN (11:30)
[2018-09-28 12:22] VITALS: BMI 32.5
[2018-09-28] MEDS ORDERED: ZOLPIDEM 10 MG TAB PO PRN (12:41)
[2018-09-28] MEDS ORDERED: DOCUSATE 100 MG CAP PO PRN (12:41)
[2018-09-28] MEDS ORDERED: BACLOFEN 10 MG TAB PO PRN (12:41)
[2018-09-28 12:42] LABS: Glucose,Whole Blood 158 mg/dL (75-99)
[2018-09-28] MEDS: NITROGLYCERIN OINT 1 INCH/GM PACKET TOPICAL SCH ×2 (13:55→17:30)
--- NOTE | 2018-09-28 14:30 | P.HPIM ---
History of Present Illness H&P Date: 09/28/18 Chief Complaint: Chest pain Kirill Clements is a 78-year-old male who presented to [facility] emergency room with a chief complaint of chest heaviness and shortness of breath. Patient states that for about 1 month he has been complaining of sinus congestion and cough with clear to white sputum production, he received a course of antibiotics from his primary care physician, however his symptoms has been worsening and for the last 2 days he started having worsening shortness of breath and chest heaviness he decided to come to emergency room. Patient was e valuated in the emergency room EKG revealed normal sinus rhythm without any significant ischemic changes d-dimer was within normal limits troponin levels were slightly elevated patient was admitted to telemetry floor and cardiology consultation was requested. Patient has a known history of paroxysmal atrial fibrillation he is maintained on oral Coumadin his INR was slightly subtherapeutic at 1.9. IV heparin was not started on presentation due to patient being on Coumadin. Patient has a known history of coronary artery disease he had coronary artery bypass graft surgery in 1994 he had 3 cardiac catheterizations since then the last one was done 4 years ago and did not show any change from the time before per patient. His chips screen tender is Dr Woo. His past medical history is also significant for hypertension, hyperlipidemia, prostate cancer followed by Dr. Mcgee and maintained on hormonal therapy. Patient has a known history of smoking about 2 packs per day for about 20 years he quit 30 years ago. He states that he was never diagnosed with COPD or emphysema, he is not on any inhalers or updraft treatments at home. Chest x-ray on presentation was suggestive of COPD. Past Medical History Past Medical History: Coronary Artery Disease (CAD), Cancer, Diabetes Mellitus, GERD/Reflux, Hyperlipidemia, Hypertension, Prostate Disorder, Sleep Apne a/CPAP/BIPAP Additional Past Medical History / Comment(s): HX PROSTATE AND Skin CA. USES CPAP. 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 Hemorrhoid. Bilat cataract,. Hiatal hernia 2012. Fatty tumor removed 2004. COLONOSCOPY, EGD, Cataract removal. Past Anesthesia/Blood Transfusion Reactions: No Reported Reaction Past Psychological History: Depression Additional Psychological History / Comment(s): . 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 History of tobacco use stopped years ago. No severe alcohol use. No recreational drug use. Pet dog Smoking Status: Former smoker Past Alcohol Use History: None Reported Additional Past Alcohol Use History / Comment(s): SMOKED 20 YEARS, 2 PPD, QUIT 1986 Past Drug Use History: None Reported - Past Family History Father Family Medical History: Congestive Heart Failure (CHF), Myocardial Infarction ([place]), Respiratory Disorder Mother Additional Family Medical History / Comment(s): heart and resp issues from [employer] Medications and Allergies Home Medications Medication Instructions Recorded Confirmed Type Aspirin [Adult Low Dose Aspirin EC] 81 mg PO QAM 06/04/16 09/28/18 History Diltiazem HCl 120 mg PO HS 06/04/16 09/28/18 History Montelukast [Singulair] 10 mg PO DAILY 06/04/16 09/28/18 History Warfarin [Coumadin] 5 mg PO SUWE 06/04/16 09/28/18 History Warfarin [Coumadin] 7.5 mg PO MOTUTHFRSA 06/04/16 09/28/18 History Bicalutamide [Casodex] 50 mg PO DAILY 11/28/17 09/28/18 History Simvastatin 40 mg PO Q48H 11/28/17 09/28/18 History Baclofen [Lioresal] 20 mg PO BID PRN 05/04/18 09/28/18 History Loratadine [Claritin] 10 mg PO HS 05/04/18 09/28/18 History Zolpidem [Ambien] 10 mg PO HS PRN 05/04/18 09/28/18 History Acetaminophen [Tylenol Arthritis] 1,300 mg PO BID PRN 09/28/18 09/28/18 History C,E,Zinc,Copper 11/Jhlnp3a/Lut 1 cap PO DAILY 09/28/18 09/28/18 History [Ocuvite Adult 50 Plus Softgel] Calcium Carbonate 1,000 mg PO DAILY 09/28/18 09/28/18 History Cholecalciferol [Vitamin D3 (25 5,000 unit PO DAILY 09/28/18 09/28/18 History Mcg = 1000 Iu)] Docusate [Colace] 100 mg PO DAILY PRN 09/28/18 09/28/18 History INSULIN ASPART (NovoLOG) [NovoLOG 3 - 5 unit SQ TID-W/MEALS 09/28/18 09/28/18 History (formulary)] Insulin Degludec [Tresiba] 48 units SQ HS 09/28/18 09/28/18 History Losartan-Hctz 50-12.5 mg [Hyzaar 1 tab PO HS 09/28/18 09/28/18 History 50-12.5] Metoprolol Tartrate [Lopressor] 12.5 mg PO QAM 09/28/18 09/28/18 History Multivitamins, Thera [Multivitamin 1 tab PO DAILY 09/28/18 09/28/18 History (formulary)] Sertraline [Zoloft] 50 mg PO DAILY 09/28/18 09/28/18 History Allergies Allergy/AdvReac Type Severity Reaction Status Date / Time Sulfa (Sulfonamide Allergy Itching Verified 09/28/18 09:47 Antibiotics) Physical Exam Vitals: Vital Signs Temp Pulse Resp BP Pulse Ox 09/28/18 12:03 97.6 F 56 L 16 146/76 98 09/28/18 12:00 16 09/28/18 10:28 55 L 16 109/68 99 09/28/18 08:57 98.6 F 53 L 18 151/75 98 Intake and Output 09/27/18 09/28/18 09/28/18 22:59 06:59 14:59 Other: Weight 97.069 kg In general patient is alert and oriented 3 in no apparent distress HEENT head normocephalic and atraumatic Neck is supple no JVD no goiter no lymphadenopathy Chest exam reveals a few scattered rhonchi no wheezing Cardiac exam reveals regular heart sounds S1 and S2 with 3/6 systolic murmur best heard in the left sternal border Abdomen is soft nontender no organomegaly with normal bowel sounds Extremity exam reveals no edema no cyanosis or clubbing Neurological examination reveals no gross focal deficit Results CBC & Chem 7: 09/28/18 09:25 09/28/18 09:25 Labs: Abnormal Lab Results - Last 24 Hours (Table) 09/28/18 09/28/18 09/28/18 Range/Units 09:25 09:25 09:25 Lymphocytes # 0.7 L (1.0-4.8) k/uL PT 18.5 H (9.0-12.0) sec INR 1.9 H (<1.2) APTT 32.3 H (22.0-30.0) sec Sodium 135 L (137-145) mmol/L Potassium 5.5 H (3.5-5.1) mmol/L Glucose 289 H (74-99) mg/dL POC Glucose (mg/dL) (75-99) mg/dL ALT 17 L (21-72) U/L Troponin I (0.000-0.034) ng/mL 09/28/18 09/28/18 Range/Units 09:25 12:22 Lymphocytes # (1.0-4.8) k/uL PT (9.0-12.0) sec INR (<1.2) APTT (22.0-30.0) sec Sodium (137-145) mmol/L Potassium (3.5-5.1) mmol/L Glucose (74-99) mg/dL POC Glucose (mg/dL) 158 H (75-99) mg/dL ALT (21-72) U/L Troponin I 0.068 H* (0.000-0.034) ng/mL Assessment and Plan Plan: #1 episodes of chest heaviness and shortness of breath for the last 2 days, with slight elevation in troponin level #2 underlying history of coronary artery disease with coronary artery bypass graft surgery in 1994, last cardiac catheterization 4 years ago #3 history of paroxysmal atrial fibrillation maintained on Coumadin. Currently in normal sinus rhythm. #4 underlying history of prostate cancer #5 underlying history of hypertension #6 underlying history of hyperlipidemia #7 underlying history of depression maintained on Zoloft, in December #8 recent history of sinus congestion and cough on and off for the last 1 month #9 previous history of smoking about 40 pack years quit 30 years ago, with chest x-ray suggestive of COPD Plan at this time to continue monitoring cardiac enzymes, echocardiogram ordered Cardiology consult in place to assess need for further cardiac evaluation will start IV Rocephin, and DuoNeb updraft for acute sinusitis/bronchitis with possible underlying COPD No need for systemic steroids at this time Patient would benefit of complete pulmonary function test as outpatient
[2018-09-28 16:16] VITALS: RESP 18
[2018-09-28] MEDS: IPRATROPIUM-ALBUTEROL 3 ML NEB INHALATION SCH ×2 (16:25→20:02)
[2018-09-28 16:40] LABS: Glucose,Whole Blood 186 mg/dL (75-99)
[2018-09-28] MEDS: INSULIN ASPART (NovoLOG) 100 UNIT/ML VIAL SQ SCH ×2 (17:28→21:59)
[2018-09-28] MEDS: ACETAMINOPHEN TAB 325 MG TAB PO PRN ×2 (17:32→22:04)
[2018-09-28] MEDS ORDERED: WARFARIN 7.5 MG TAB PO SCH (18:00)
[2018-09-28 20:34] LABS: Glucose,Whole Blood 211 mg/dL (75-99)
[2018-09-28] MEDS ORDERED: INSULIN DETEMIR (LEVEMIR) 100 UNIT/ML SYR SQ SCH (21:00)
[2018-09-28] MEDS ORDERED: DILTIAZEM CD 120 MG CAP.ER.24H PO SCH (21:00)
[2018-09-28] MEDS ORDERED: LORATADINE 10 MG TAB PO SCH (21:00)
[2018-09-28] MEDS ORDERED: ATORVASTATIN 20 MG TAB PO SCH (21:00)
[2018-09-28] MEDS ORDERED: LOSARTAN-HCTZ 50-12.5 MG 1 EACH TAB PO SCH (21:00)
[2018-09-29] MEDS: NITROGLYCERIN OINT 1 INCH/GM PACKET TOPICAL SCH ×2 (00:30→06:04)
[2018-09-29 06:10] LABS: Glucose,Whole Blood 102 mg/dL (75-99)
[2018-09-29 06:42] LABS: Basophils % (A) 0 %; Eosinophils # (A) 0.1 k/uL (0-0.7); Eosinophils % (A) 2 %; HCT 37.1 % (39.0-53.0); HGB 12.5 gm/dL (13.0-17.5); Lymphocytes # (A) 0.8 k/uL (1.0-4.8); Lymphocytes % (A) 12 %; MCH 28.9 pg (25.0-35.0); MCHC 33.6 g/dL (31.0-37.0); Mean Platelet Volume 7.7; Monocytes # (A) 0.4 k/uL (0-1.0); Monocytes % (A) 6 %; Neutrophils # (A) 4.9 k/uL (1.3-7.7); Neutrophils % (A) 75 %; Platelet Count 138 k/uL (150-450); RBC 4.32 m/uL (4.30-5.90); RDW 13.8 % (11.5-15.5); WBC 6.5 k/uL (3.8-10.6)
[2018-09-29 06:53] LABS: ALT 20 U/L (21-72); AST 20 U/L (17-59); African American GFR (CKD) >90 (>60 ml/min/1.73 sqM); Albumin 4.2 g/dL (3.5-5.0); Alkaline Phosphatase 52 U/L (38-126); Anion Gap 10 mmol/L; Blood Urea Nitrogen 21 mg/dL (9-20); Calcium 9.3 mg/dL (8.4-10.2); Carbon Dioxide 29 mmol/L (22-30); Chloride 100 mmol/L (98-107); Cholesterol 162 mg/dL (<200); Glucose 97 mg/dL (74-99); HDL Cholesterol 33 mg/dL (40-60); LDL Cholesterol,Calculated 102 mg/dL (0-99); Potassium 4.8 mmol/L (3.5-5.1); Sodium 139 mmol/L (137-145); Total Bilirubin 0.5 mg/dL (0.2-1.3); Total Protein 6.8 g/dL (6.3-8.2); Triglycerides 133 mg/dL (<150)
[2018-09-29 07:07] LABS: INR 1.8 (<1.2)
[2018-09-29] MEDS: IPRATROPIUM-ALBUTEROL 3 ML NEB INHALATION SCH ×2 (08:05→13:16)
--- NOTE | 2018-09-29 08:17 | P.CRDCN ---
History of Present Illness Consult date: 09/29/18 Requesting physician: Jenise Gillespie Reason for Consult (text): unstable angina Chief complaint: cough, shortness of breath History of present illness: This is a pleasant 78-year-old gentleman follows with Dr. Woo in the office. He has a known history of CAD, prior CABG, paroxysmal atrial fibrillation for which she is on Coumadin, diabetes, GERD, hyperlipidemia, hypertension, sleep apnea and is a former smoker. Most recent cardiac catheterization in 2017 showed patent ONEILL to the LAD, patent saphenous vein graft to the OM with 40-50% plaque in the mid segment, patent saphenous vein graft to the right coronary artery with 40-50% plaque in the proximal and midsegment and normal LV size and systolic function. He presented to the emergency department with complaints of worsening chest congestion and cough with clear sputum. He's also noticed over the last several days to be somewhat more short of breath. He denies any chest discomfort. EKG on admission showed sinus bradycardia with sinus arrhythmia and a first-degree AV block with evidence of prior inferior infarct, similar to previous EKG. Chest x-ray showed chronic atelectasis or scarring in the left lung base, please correlate for COPD. Laboratory values showed subtherapeutic INR of 1.9, potassium of 5.5 which has normalized to 4.8 this morning, be on of 20 creatinine is 0.81. Troponins were mildly elevated at 0.068, 0.053 and 0.051. Upon examination this morning patient is resting probably a chair. He feels his symptoms have improved since yesterday. He continues to deny any complaints of chest discomfort. Past Medical History Past Medical History: Coronary Artery Disease (CAD), Cancer, Diabetes Mellitus, GERD/Reflux, Hyperlipidemia, Hypertension, Prostate Disorder, Sleep Apnea/CPAP/BIPAP Additional Past Medical History / Comment(s): HX PROSTATE AND Skin CA. USES CPAP. 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 Hemorrhoid. Bilat cataract,. Hiatal hernia 2012. Fatty tumor removed 2004. COLONOSCOPY, EGD, Cataract removal. Past Anesthesia/Blood Transfusion Reactions: No Reported Reaction Past Psychological History: Depression Additional Psychological History / Comment(s): . 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 History of tobacco use stopped years ago. No severe alcohol use. No recreational drug use. Pet dog Smoking Status: Former smoker Past Alcohol Use History: None Reported Additional Past Alcohol Use History / Comment(s): SMOKED 20 YEARS, 2 PPD, QUIT 1986 Past Drug Use History: None Reported - Past Family History Father Family Medical History: Congestive Heart Failure (CHF), Myocardial Infarction ([place]), Respiratory Disorder Mother Additional Family Medical History / Comment(s): heart and resp issues from [employer] Medications and Allergies Home Medications Medication Instructions Recorded Confirmed Type Aspirin [Adult Low Dose Aspirin EC] 81 mg PO QAM 06/04/16 09/28/18 History Diltiazem HCl 120 mg PO HS 06/04/16 09/28/18 History Montelukast [Singulair] 10 mg PO DAILY 06/04/16 09/28/18 History Warfarin [Coumadin] 5 mg PO SUWE 06/04/16 09/28/18 History Warfarin [Coumadin] 7.5 mg PO MOTUTHFRSA 06/04/16 09/28/18 History Bicalutamide [Casodex] 50 mg PO DAILY 11/28/17 09/28/18 History Simvastatin 40 mg PO Q48H 11/28/17 09/28/18 History Baclofen [Lioresal] 20 mg PO BID PRN 05/04/18 09/28/18 History Loratadine [Claritin] 10 mg PO HS 05/04/18 09/28/18 History Zolpidem [Ambien] 10 mg PO HS PRN 05/04/18 09/28/18 History Acetaminophen [Tylenol Arthritis] 1,300 mg PO BID PRN 09/28/18 09/28/18 History C,E,Zinc,Copper 11/Nwved2g/Lut 1 cap PO DAILY 09/28/18 09/28/18 History [Ocuvite Adult 50 Plus Softgel] Calcium Carbonate 1,000 mg PO DAILY 09/28/18 09/28/18 History Cholecalciferol [Vitamin D3 (25 5,000 unit PO DAILY 09/28/18 09/28/18 History Mcg = 1000 Iu)] Docusate [Colace] 100 mg PO DAILY PRN 09/28/18 09/28/18 History INSULIN ASPART (NovoLOG) [NovoLOG 3 - 5 unit SQ TID-W/MEALS 09/28/18 09/28/18 History (formulary)] Insulin Degludec [Tresiba] 48 units SQ HS 09/28/18 09/28/18 History Losartan-Hctz 50-12.5 mg [Hyzaar 1 tab PO HS 09/28/18 09/28/18 History 50-12.5] Metoprolol Tartrate [Lopressor] 12.5 mg PO QAM 09/28/18 09/28/18 History Multivitamins, Thera [Multivitamin 1 tab PO DAILY 09/28/18 09/28/18 History (formulary)] Sertraline [Zoloft] 50 mg PO DAILY 09/28/18 09/28/18 History Allergies Allergy/AdvReac Type Severity Reaction Status Date / Time Sulfa (Sulfonamide Allergy Itching Verified 09/28/18 09:47 Antibiotics) Physical Exam Vitals: Vital Signs Temp Pulse Pulse Resp BP BP Pulse Ox 09/29/18 07:37 63 18 09/29/18 04:00 98.0 F 63 18 129/73 93 L 09/29/18 00:00 98.6 F 18 L 18 116/62 96 09/28/18 20:14 64 09/28/18 20:03 62 09/28/18 20:00 98.2 F 64 16 115/71 93 L 09/28/18 16:34 66 09/28/18 16:27 64 09/28/18 16:00 98.3 F 64 18 156/74 98 09/28/18 12:03 97.6 F 56 L 16 146/76 98 09/28/18 12:00 16 09/28/18 10:28 55 L 16 109/68 99 09/28/18 08:57 98.6 F 53 L 18 151/75 98 Intake and Output 09/28/18 09/29/18 09/29/18 22:59 06:59 14:59 Other: # Voids 2 1 Weight 97.3 kg PHYSICAL EXAMINATION: HEENT: Head is atraumatic, normocephalic. Pupils equal, round. Neck is supple. There is no elevated jugular venous pressure. HEART EXAMINATION: Heart sounds regular, S1 and S2 with a systolic ejection murm ur at the base. CHEST EXAMINATION: Lungs are clear to auscultation and precussion. No chest wall tenderness is noted on palpation or with deep breathing. ABDOMEN: Soft, nontender. Bowel sounds are heard. No organomegaly noted. EXTREMITIES: 2+ peripheral pulses with no evidence of peripheral edema and no calf tenderness noted. NEUROLOGIC patient is awake, alert and oriented x3. . Results 09/29/18 06:01 09/29/18 06:01 Cardiac Enzymes 09/28/18 09/28/18 09/28/18 Range/Units 09:25 09:25 15:04 AST 37 (17-59) U/L Troponin I 0.068 H* 0.053 H* (0.000-0.034) ng/mL 09/28/18 09/29/18 Range/Units 20:59 06:01 AST 20 (17-59) U/L Troponin I 0.051 H* (0.000-0.034) ng/mL Coagulation 09/28/18 09/29/18 Range/Units 09:25 06:01 PT 18.5 H 18.0 H (9.0-12.0) sec APTT 32.3 H (22.0-30.0) sec Lipids 09/29/18 Range/Units 06:01 Triglycerides 133 (<150) mg/dL Cholesterol 162 (<200) mg/dL HDL Cholesterol 33 L (40-60) mg/dL CBC 09/28/18 09/29/18 Range/Units 09:25 06:01 WBC 7.8 6.5 (3.8-10.6) k/uL RBC 4.53 4.32 (4.30-5.90) m/uL Hgb 13.1 12.5 L (13.0-17.5) gm/dL Hct 39.3 37.1 L (39.0-53.0) % Plt Count 151 138 L (150-450) k/uL Comprehensive Metabolic Panel 09/28/18 09/29/18 Range/Units 09:25 06:01 Sodium 135 L 139 (137-145) mmol/L Potassium 5.5 H 4.8 (3.5-5.1) mmol/L Chloride 99 100 (98-107) mmol/L Carbon Dioxide 25 29 (22-30) mmol/L BUN 20 21 H (9-20) mg/dL Creatinine 0.81 0.88 (0.66-1.25) mg/dL Glucose 289 H 97 (74-99) mg/dL Calcium 9.1 9.3 (8.4-10.2) mg/dL AST 37 20 (17-59) U/L ALT 17 L 20 L (21-72) U/L Alkaline Phosphatase 47 52 (38-126) U/L Total Protein 7.2 6.8 (6.3-8.2) g/dL Albumin 4.4 4.2 (3.5-5.0) g/dL Current Medications Generic Name Dose Route Start Last Admin Trade Name Freq PRN Reason Stop Dose Admin Acetaminophen 650 mg 09/28/18 17:24 09/28/18 22:04 Tylenol Tab PO 650 mg Q6HR PRN Administration Fever and/ or Pain Albuterol/Ipratropium 3 ml 09/28/18 16:00 09/28/18 20:02 Duoneb 0.5 Mg-3 Mg/3 Ml Soln INHALATION 3 ml RT-QID MINI Administration Aspirin 81 mg 09/29/18 09:00 Aspirin PO QAM MINI Atorvastatin Calcium 20 mg 09/28/18 21:00 09/28/18 21:58 Lipitor PO 20 mg Q48H MINI Administration Baclofen 20 mg 09/28/18 12:41 Lioresal PO BID PRN Muscle Pain Bicalutamide 50 mg 09/29/18 09:00 Casodex PO DAILY [facility] Calcium Carbonate/Glycine 1,000 mg 09/29/18 09:00 Tums PO DAILY [facility] Cholecalciferol 5,000 unit 09/29/18 09:00 Vitamin D3 (25 Mcg = 1000 Iu) PO DAILY [facility] Diltiazem HCl 120 mg 09/28/18 21:00 09/28/18 21:57 Cardizem Cd PO 120 mg HS MINI Administration Docusate Sodium 100 mg 09/28/18 12:41 Colace PO DAILY PRN Constipation HCTZ/Losartan Potassium 1 each 09/28/18 21:00 09/28/18 21:57 Hyzaar 50-12.5 PO 1 each HS MINI Administration Insulin Aspart 0 unit 09/28/18 17:30 09/28/18 21:59 Novolog SQ 3 unit ACHS MINI Administration Protocol Insulin Detemir 48 unit 09/28/18 21:00 09/28/18 21:58 Levemir SQ 25 unit HS MINI Administration Loratadine 10 mg 09/28/18 21:00 09/28/18 21:58 Claritin PO 10 mg HS MINI Administration Metoprolol Tartrate 12.5 mg 09/29/18 09:00 Lopressor PO QAM MINI Montelukast Sodium 10 mg 09/29/18 09:00 Singulair PO DAILY [facility] Multivitamins 1 each 09/29/18 09:00 Theragran PO DAILY [facility] Multivitamins/Minerals 1 each 09/29/18 09:00 Ivite PO DAILY [facility] Nitroglycerin 1 inch 09/28/18 12:00 09/29/18 06:04 Nitro-Bid Oint TOPICAL Not Given Q6HR [facility] Nitroglycerin 0.4 mg 09/28/18 11:30 Nitrostat SUBLINGUAL Q5M PRN Chest Pain Sertraline HCl 50 mg 09/29/18 09:00 Zoloft PO DAILY [facility] Warfarin Sodium 5 mg 09/29/18 18:00 Coumadin PO [email or web address] [facility] Warfarin Sodium 7.5 mg 09/28/18 18:00 09/28/18 17:22 Coumadin PO 7.5 mg [email or web address] [facility] Administration Zolpidem Tartrate 10 mg 09/28/18 12:41 09/28/18 21:57 Ambien PO 10 mg HS PRN Administration Insomnia Intake and Output 09/28/18 09/29/18 09/29/18 22:59 06:59 14:59 Other: # Voids 2 1 Weight 97.3 kg 09/29/18 06:01 09/29/18 06:01 EKG Interpretations (text) Sinus bradycardia with sinus arrhythmia and first-degree AV block with evidence of prior inferior ND Assessment and Plan Assessment: #1 symptoms of cough and shortness of breath chest x-ray showing possible atelectasis versus scarring and recommends correlation for COPD #2 elevated troponins of unclear significance, not consistent with acute myocardial injury #3 history of CAD with prior CABG with known 40-50% plaque in the saphenous vein grafts to the RCA and obtuse marginal branch #4 paroxysmal atrial fibrillation, on Coumadin #5 hypertension #6 hyperlipidemia #7 diabetes mellitus Plan: From cardiology's perspective, we will discontinue Nitropaste. Increase patient's activity. We'll give additional 2.5 mg of Coumadin tonight to make a total of 7.5 mg to be given. May consider stress test in the morning. We will review 2-D echo to assess LV function and to assess for wall motion abnormalities. Further recommendations to follow. MAILING SPECIALIST note has been reviewed, I agree with a documented findings and plan of care. Patient was seen and examined.
[2018-09-29] MEDS: INSULIN ASPART (NovoLOG) 100 UNIT/ML VIAL SQ SCH ×2 (08:20→12:48)
[2018-09-29] MEDS ORDERED: MULTIVITAMINS, THERA 1 EACH TAB PO SCH (09:00)
[2018-09-29] MEDS ORDERED: ASPIRIN 325 MG TAB PO SCH (09:00)
[2018-09-29] MEDS ORDERED: BICALUTAMIDE 50 MG TAB PO SCH (09:00)
[2018-09-29] MEDS ORDERED: ASPIRIN 81 MG PO SCH (09:00)
[2018-09-29] MEDS ORDERED: METOPROLOL TARTRATE 12.5 MG TAB PO SCH (09:00)
[2018-09-29] MEDS ORDERED: CALCIUM CARBONATE 500 MG CHEWABLE PO SCH (09:00)
[2018-09-29] MEDS ORDERED: VIT A,C & E-LUTEIN-MINERALS 1 EACH TAB PO SCH (09:00)
[2018-09-29] MEDS ORDERED: CHOLECALCIFEROL 1,000 UNIT TAB PO SCH (09:00)
[2018-09-29] MEDS ORDERED: MONTELUKAST 10 MG TAB PO SCH (09:00)
[2018-09-29] MEDS ORDERED: SERTRALINE 50 MG TAB PO SCH (09:00)
--- NOTE | 2018-09-29 09:17 | ECHOF ---
Referral Reason:lv function MEASUREMENTS -------- HEIGHT: 172.7 cm WEIGHT: 97.1 kg BP: 146/76 IVSd: 1.4 cm (0.6 - 1.1) LVIDd: 3.8 cm (3.9 - 5.3) LVPWd: 1.5 cm (0.6 - 1.1) EDV(Teich): 61 ml IVSs: 1.7 cm LVIDs: 3.0 cm LVPWs: 1.6 cm %IVS Thck: 27 % ESV(Teich): 36 ml EF(Teich): 41 % %FS: 20 % SV(Teich): 25 ml LA Diam: 4.8 cm (2.7 - 3.8) RVIDd: 3.3 cm (< 3.3) LALs A4C: 6.6 cm LAAs A4C: 25.1 cm LAESV A-L A4C: 81 ml LAESV MOD A4C: 76 ml LALs A2C: 5.7 cm LAAs A2C: 22.0 cm LAESV A-L A2C: 73 ml LAESV MOD A2C: 67 ml LAESV(A-L): 83 ml LAESV Index (A-L): 39.29 ml/m Ao Diam: 3.5 cm (2.0 - 3.7) AV Cusp: 1.8 cm (1.5 - 2.6) EPSS: 0.3 cm MV E Eliazar: 1.09 m/s MV DecT: 286 ms MV Dec [place]: 3.8 m/s MV A Eliazar: 0.86 m/s MV E/A Ratio: 1.26 MV PHT: 83 ms LVOT Vmax: 0.99 m/s LVOT maxP.95 mmHg AV Vmax: 3.36 m/s AV maxP.14 mmHg AV Vmax: 3.41 m/s AV Vmean: 2.40 m/s AV maxP.53 mmHg AV meanP.31 mmHg AV Env.Ti: 388 ms AV VTI: 93.1 cm TR Vmax: 2.25 m/s TR maxP.25 mmHg RAP: 5.00 mmHg RVSP: 25.25 mmHg MV EF SLOPE: 38.79 mm/s (70 - 150) MV EXCURSION: 15.27 mm (> 18.000) FINDINGS -------- Sinus rhythm. This was a technically difficult study with suboptimal views. The left ventricular size is normal. There is moderate concentric left ventricular hypertrophy. O verall left ventricular systolic function is normal with, an EF between 60 - 65 %. The right ventricle is mildly enlarged. LA is moderately dilated 34-39 ml/m2 The right atrium is normal in size. Lumason used Interatrial and interventricular septum intact. There is moderate aortic valve sclerosis. Trace to mild aortic regurgitation. There is moderate a ortic stenosis present. Peak/mean gradient across the Aortic Valve is 46.53mmHg / 26.31mmHg. The mitral valve leaflets are mildly thickened. Mild mitral annular calcification present. Mild m itral regurgitation is present. Mild tricuspid regurgitation present. Right ventricular systolic pressure is normal at < 35 mmHg. The pulmonic valve was not well visualized. The aortic root size is normal. Normal inferior vena cava with normal inspiratory collapse consistent with estimated right atrial pre ssure of 5 mmHg. There is no pericardial effusion. CONCLUSIONS -------- 1. Sinus rhythm. 2. This was a technically difficult study with suboptimal views. 3. The left ventricular size is normal. 4. There is moderate concentric left ventricular hypertrophy. 5. Overall left ventricular systolic function is normal with, an EF between 60 - 65 %. 6. The right ventricle is mildly enlarged. 7. LA is moderately dilated 34-39 ml/m2 8. The right atrium is normal in size. 9. Lumason used 10. Interatrial and interventricular septum intact. 11. There is moderate aortic valve sclerosis. 12. Trace to mild aortic regurgitation. 13. There is moderate aortic stenosis present. 14. Peak/mean gradient across the Aortic Valve is 46.53mmHg / 26.31mmHg. 15. The mitral valve leaflets are mildly thickened. 16. Mild mitral annular calcification present. 17. Mild mitral regurgitation is present. 18. Mild tricuspid regurgitation present. 19. Right ventricular systolic pressure is normal at < 35 mmHg. 20. The pulmonic valve was not well visualized. 21. The aortic root size is normal. 22. Normal inferior vena cava with normal inspiratory collapse consistent with estimated right atrial pressure of 5 mmHg. 23. There is no pericardial effusion. INVASIVE CARDIOVASCULAR TECHNOLOGIST: Shelly Back RDCS
[2018-09-29 11:22] VITALS: BP 146/67; PULSE 60; TEMP 97.7
[2018-09-29 12:15] LABS: Glucose,Whole Blood 116 mg/dL (75-99)
--- NOTE | 2018-09-29 12:24 | P.DS ---
Providers Date of admission: 09/28/18 11:31 Expected date of discharge: 09/29/18 Attending physician: Jenise Gillespie Consults: 09/28/18 11:30 Consult Physician Urgent Consulting Provider: [facility] Consult Reason/Comments: Unstable angina Do you want consulting provider notified?: Yes Primary care physician: Anisha Vines Pertinent Studies: Diagnosis on discharge: #1 episodes of chest heaviness and shortness of breath for the last 2 days, with slight elevation in troponin level #2 underlying history of coronary artery disease with coronary artery bypass graft surgery in 1994, last cardiac catheterization 4 years ago #3 history of paroxysmal atrial fibrillation maintained on Coumadin. Currently in normal sinus rhythm. #4 underlying history of prostate cancer #5 underlying history of hypertension #6 underlying history of hyperlipidemia #7 underlying history of depression maintained on Zoloft, in December #8 recent history of sinus congestion and cough on and off for the last 1 month #9 previous history of smoking about 40 pack years quit 30 years ago, with chest x-ray suggestive of COPD Hospital course: Kirill Clements is a 78-year-old male who presented to [facility] emergency room with a chief complaint of chest heaviness and shortness of breath. Patient states that for about 1 month he has been complaining of sinus congestion and cough with clear to white sputum production, he received a course of antibiotics from his primary care physician, however his symptoms has been worsening and for the last 2 days he started having worsening shortness of breath and chest heaviness he decided to come to emergency room. Patient was evaluated in the emergency room EKG revealed normal sinus rhythm without any significant ischemic changes d-dimer was within normal limits troponin levels were slightly elevated patient was admitted to telemetry floor and cardiology consultation was requested. Patient has a known history of paroxysmal atrial fibrillation he is maintained on oral Coumadin his INR was slightly subtherapeutic at 1.9. IV heparin was not started on presentation due to patient being on Coumadin. Patient has a known history of coronary artery disease he had coronary artery bypass graft surgery in 1994 he had 3 cardiac catheterizations since then the last one was done 4 years ago and did not show any change from the time before per patient. His cartographic drafter is Dr Woo. His past medical history is also significant for hypertension, hyperlipidemia, prostate cancer followed by Dr. Mcgee and maintained on hormonal therapy. Patient has a known history of smoking about 2 packs per day for about 20 years he quit 30 years ago. He states that he was never diagnosed with COPD or emphysema, he is not on any inhalers or updraft treatments at home. Chest x-ray on presentation was suggestive of COPD. Patient was monitored on the telemetry floor he was asymptomatic throughout this admission he did not have any symptoms of chest pain shortness of breath cough or palpitation he had mild upper respiratory infection symptoms he was given a dose of IV Rocephin and was switched to oral Augmentin. Patient was evaluated by cardiology on 09/29/2018, he was told by cartographic drafter Dr. Kelley that he is cleared for discharge home, patient related that message to me, I reviewed the cardiology note dictated by Kayla Kirk nurse practitioner and the no did not reflect clearance by cardiology for discharge. I called Dr. Onofre and spoke to him over the phone and he stated that patient is cleared for discharge from cardiology standpoint. He was given a course of Augmentin and was discharged home he will follow-up with his primary care physician in 1-2 days also follow up with his cartographic drafter Dr. Woo in 1- 2 days for possible stress test as outpatient. Plan - Discharge Summary New Discharge Prescriptions: New Amoxic-Pot Clav 500-125 mg [Augmentin 500-125 mg] 1 each PO BID tab Continue Warfarin [Coumadin] 5 mg PO SUWE Montelukast [Singulair] 10 mg PO DAILY Aspirin [Adult Low Dose Aspirin EC] 81 mg PO QAM Warfarin [Coumadin] 7.5 mg PO MOTUTHFRSA Diltiazem HCl 120 mg PO HS Bicalutamide [Casodex] 50 mg PO DAILY Simvastatin 40 mg PO Q48H Zolpidem [Ambien] 10 mg PO HS PRN PRN Reason: Insomnia Loratadine [Claritin] 10 mg PO HS Baclofen [Lioresal] 20 mg PO BID PRN PRN Reason: Muscle Pain Sertraline [Zoloft] 50 mg PO DAILY Docusate [Colace] 100 mg PO DAILY PRN PRN Reason: Constipation Calcium Carbonate 1,000 mg PO DAILY Cholecalciferol [Vitamin D3 (25 Mcg = 1000 Iu)] 5,000 unit PO DAILY C,E,Zinc,Copper 11/Jwvaj9k/Lut [Ocuvite Adult 50 Plus Softgel] 1 cap PO DAILY Multivitamins, Thera [Multivitamin (formulary)] 1 tab PO DAILY Insulin Degludec [Tresiba] 48 units SQ HS INSULIN ASPART (NovoLOG) [NovoLOG (formulary)] 3 - 5 unit SQ TID-W/MEALS Acetaminophen [Tylenol Arthritis] 1,300 mg PO BID PRN PRN Reason: Pain Metoprolol Tartrate [Lopressor] 12.5 mg PO QAM Losartan-Hctz 50-12.5 mg [Hyzaar 50-12.5] 1 tab PO HS Discharge Medication List Aspirin [Adult Low Dose Aspirin EC] 81 mg PO QAM 06/04/16 [History] Diltiazem HCl 120 mg PO HS 06/04/16 [History] Montelukast [Singulair] 10 mg PO DAILY 06/04/16 [History] Warfarin [Coumadin] 5 mg PO SUWE 06/04/16 [History] Warfarin [Coumadin] 7.5 mg PO MOTUTHFRSA 06/04/16 [History] Bicalutamide [Casodex] 50 mg PO DAILY 11/28/17 [History] Simvastatin 40 mg PO Q48H 11/28/17 [History] Baclofen [Lioresal] 20 mg PO BID PRN 05/04/18 [History] Loratadine [Claritin] 10 mg PO HS 05/04/18 [History] Zolpidem [Ambien] 10 mg PO HS PRN 05/04/18 [History] Acetaminophen [Tylenol Arthritis] 1,300 mg PO BID PRN 09/28/18 [History] C,E,Zinc,Copper 11/Fxbgx2c/Lut [Ocuvite Adult 50 Plus Softgel] 1 cap PO DAILY 09/28/18 [History] Calcium Carbonate 1,000 mg PO DAILY 09/28/18 [History] Cholecalciferol [Vitamin D3 (25 Mcg = 1000 Iu)] 5,000 unit PO DAILY 09/28/18 [History] Docusate [Colace] 100 mg PO DAILY PRN 09/28/18 [History] INSULIN ASPART (NovoLOG) [NovoLOG (formulary)] 3 - 5 unit SQ TID-W/MEALS 09/28/18 [History] Insulin Degludec [Tresiba] 48 units SQ HS 09/28/18 [History] Losartan-Hctz 50-12.5 mg [Hyzaar 50-12.5] 1 tab PO HS 09/28/18 [History] Metoprolol Tartrate [Lopressor] 12.5 mg PO QAM 09/28/18 [History] Multivitamins, Thera [Multivitamin (formulary)] 1 tab PO DAILY 09/28/18 [History] Sertraline [Zoloft] 50 mg PO DAILY 09/28/18 [History] Amoxic-Pot Clav 500-125 mg [Augmentin 500-125 mg] 1 each PO BID tab 09/29/18 [Rx] Follow up Appointment(s)/Referral(s): Anisha Vines DO [Primary Care Provider] - 1-2 days
[2018-09-29] MEDS ORDERED: WARFARIN 5 MG TAB PO SCH (18:00)
[2018-09-29] MEDS ORDERED: WARFARIN 2.5 MG TAB PO ONE (18:00)
[2018-09-29] MEDS ORDERED: AMOXIC-POT CLAV 500-125 MG 1 EACH TAB PO SCH (21:00)
== END 2018-09-29 14:32 | disposition home or self-care (01) ==
LOC: EC 08:54 → 3SCARD 11:31
PROVIDERS: ADMIT Internal Medicine; ATTEND Internal Medicine
DX: R07.89 Other chest pain (principal); R06.02 Shortness of breath; R77.8 Other specified abnormalities of plasma proteins; I48.0 Paroxysmal atrial fibrillation; I25.810 Atherosclerosis of coronary artery bypass graft(s) without angina pectoris; I10 Essential (primary) hypertension; I44.0 Atrioventricular block, first degree; E11.9 Type 2 diabetes mellitus without complications; R00.1 Bradycardia, unspecified; K21.9 Gastro-esophageal reflux disease without esophagitis; G47.30 Sleep apnea, unspecified; Z99.89 Dependence on other enabling machines and devices; J20.9 Acute bronchitis, unspecified; J01.90 Acute sinusitis, unspecified; C79.51 Secondary malignant neoplasm of bone; R79.1 Abnormal coagulation profile; E78.5 Hyperlipidemia, unspecified; F32.9 Major depressive disorder, single episode, unspecified; Z79.01 Long term (current) use of anticoagulants; Z79.82 Long term (current) use of aspirin; Z79.4 Long term (current) use of insulin; Z79.899 Other long term (current) drug therapy; Z88.2 Allergy status to sulfonamides; Z86.14 Personal history of Methicillin resistant Staphylococcus aureus infection; Z95.1 Presence of aortocoronary bypass graft; Z85.46 Personal history of malignant neoplasm of prostate; Z87.891 Personal history of nicotine dependence; Z85.828 Personal history of other malignant neoplasm of skin; Z98.42 Cataract extraction status, left eye; Z98.41 Cataract extraction status, right eye; Z82.49 Family history of ischemic heart disease and other diseases of the circulatory system; Z83.6 Family history of other diseases of the respiratory system
CPT/HCPCS: 99285; 36415; 94640 ×3; 85379; 80061; 80053 ×2; 83735; 84484; 85025 ×2; 85610 ×2; 85730; 87070; 87205; 71046; G0378 ×2; C8929; J0696; Q9950; 93306

== ENCOUNTER → 2018-09-30 | Outpatient (CLI) | payer MEDICARE, BC ==
--- NOTE | 2018-09-30 15:29 | NM ---
EXAMINATION TYPE: NM bone scan whole body DATE OF EXAM: 09/30/2018 COMPARISON: Nuclear medicine bone scan dated 03/22/2018 HISTORY: Prostate cancer Delayed whole-body scanning was performed following the injection of 22.2 mCi Tc 99m MDP. Images acq uired 3.5 hours post injection. FINDINGS: There are numerous metastatic lesions of abnormal radiotracer uptake within the ribs, sternum, right humerus, glenoid, pelvis, left femur, right intertrochanteric hip, lumbar spine, thoracic spine, and left shoulder. Degenerative uptake is mild within the bilateral knees, ankles, feet, and wrists. Lesi ons appear overall stable in size and number in comparison to the exam of 03/22/2018. Overall there i s slightly diminished degree of intensity of uptake throughout the innumerable metastatic lesions. IMPRESSION: Diffuse osseous metastasis with overall stable size and number of metastatic lesions in c omparison to the prior of 03/22/2018 however there is slight decrease in intensity of the multifocal uptake.
== END | disposition home or self-care (01) ==
LOC: RADNMMAIN 09:53
PROVIDERS: ATTEND Urology
DX: C79.51 Secondary malignant neoplasm of bone (principal); C61 Malignant neoplasm of prostate; Z88.2 Allergy status to sulfonamides
CPT/HCPCS: 78306; A9503

== ENCOUNTER → 2018-10-29 | Day surgery (SDC) | payer MEDICARE, BC ==
[2018-10-22 10:45] VITALS: BMI 32.3
[~2018-10-29] MED LIST changes: +LACTATED RINGERS 1,000 ML IV SCH; +LIDOCAINE 1% INJ 10MG/ML (20 ML MDV) ONE; +PROPOFOL 10 MG/ML 20 ML VIAL IV ONE; -WARFARIN 5 MG TAB PO SCH
[2018-10-29 07:14] VITALS: TEMP 97.7
[2018-10-29 07:18] LABS: Glucose,Whole Blood 146 mg/dL (75-99)
--- NOTE | 2018-10-29 07:51 | P.GSHP ---
History of Present Illness H&P Date: 10/29/18 Chief Complaint: Epigastric pain This is a 78-year-old male who presents today for EGD. He's had complaints of epigastric pain. Past Medical History Past Medical History: Atrial Fibrillation, Coronary Artery Disease (CAD), Cancer, Diabetes Mellitus, GERD/Reflux, Hyperlipidemia, Hypertension, Osteoarthritis (OA), Prostate Disorder, Sleep Apnea/CPAP/BIPAP Additional Past Medical History / Comment(s): PROSTATE CANCER WITH METS TO BONE (MAR 2018), SKIN CANCER, SLEEP APNEA RESOLVED WITH WT LOSS., SINUS CONGESTION, BACK PAIN., HX OF ANEMIA WITH PLASMA AND IRON TRANSFUSION. History of Any Multi-Drug Resistant Organisms: MRSA Date of last positivie culture/infection: 06/04/16 MDRO Source:: Neck Past Surgical History: Coronary Bypass/CABG, Heart Catheterization Additional Past Surgical History / Comment(s): 1994 TRIPLE Bypass. Hemorrhoid. Bilat cataract,. Hiatal hernia 2012. Fatty tumor removed 2004. COLONOSCOPY, EGD, Cataract removal. Past Anesthesia/Blood Transfusion Reactions: No Reported Reaction Past Psychological History: Depression Additional Psychological History / Comment(s): . Smoking Status: Former smoker Past Alcohol Use History: None Reported Additional Past Alcohol Use History / Comment(s): SMOKED 20 YEARS, 2 PPD, QUIT 1986 Past Drug Use History: None Reported - Past Family History Father Family Medical History: Congestive Heart Failure (CHF), Myocardial Infarction (DE), Respiratory Disorder Mother Additional Family Medical History / Comment(s): heart and resp issues from [employer] Medications and Allergies Home Medications Medication Instructions Recorded Confirmed Type Diltiazem HCl 120 mg PO HS 06/04/16 10/29/18 History Montelukast [Singulair] 10 mg PO DAILY 06/04/16 10/29/18 History Warfarin [Coumadin] 7.5 mg PO HS 06/04/16 10/29/18 History Bicalutamide [Casodex] 50 mg PO DAILY 11/28/17 10/29/18 History Simvastatin 20 mg PO Q48H 11/28/17 10/29/18 History Baclofen [Lioresal] 20 mg PO HS PRN 05/04/18 10/29/18 History Loratadine [Claritin] 10 mg PO BID 05/04/18 10/29/18 History Zolpidem [Ambien] 5 mg PO HS PRN 05/04/18 10/29/18 History Acetaminophen [Tylenol Arthritis] 1,300 mg PO BID PRN 09/28/18 10/29/18 History C,E,Zinc,Copper 11/Vludw6d/Lut 1 cap PO DAILY 09/28/18 10/29/18 History [Ocuvite Adult 50 Plus Softgel] Calcium Carbonate 1,000 mg PO DAILY 09/28/18 10/29/18 History Cholecalciferol [Vitamin D3 (25 5,000 unit PO DAILY 09/28/18 10/29/18 History Mcg = 1000 Iu)] INSULIN ASPART (NovoLOG) [NovoLOG 1 - 5 unit SQ TID-W/MEALS 09/28/18 10/29/18 History (formulary)] Insulin Degludec [Tresiba] 25 units SQ HS 09/28/18 10/29/18 History Losartan-Hctz 50-12.5 mg [Hyzaar 1 tab PO HS 09/28/18 10/29/18 History 50-12.5] Metoprolol Tartrate [Lopressor] 12.5 mg PO QAM 09/28/18 10/29/18 History Multivitamins, Thera [Multivitamin 1 tab PO DAILY 09/28/18 10/29/18 History (formulary)] Sertraline [Zoloft] 75 mg PO DAILY 09/28/18 10/29/18 History Omeprazole Magnesium [PriLOSEC OTC] 20 mg PO BID 10/22/18 10/29/18 History Prostate Hormone Injection 1 dose IM DIRECTED 10/22/18 History Allergies Allergy/AdvReac Type Severity Reaction Status Date / Time Sulfa (Sulfonamide Allergy Itching Verified 10/22/18 10:08 Antibiotics) Surgical - Exam Vital Signs Temp Pulse Resp BP Pulse Ox 97.7 F 62 20 140/67 97 10/29/18 07:12 10/29/18 07:12 10/29/18 07:12 10/29/18 07:12 10/29/18 07:12 - General well developed, well nourished, no distress - Eyes PERRL - ENT normal pinna - Neck no masses - Respiratory normal expansion - Cardiovascular Rhythm: regular - Abdomen Abdomen: soft, non tender Results - Labs Abnormal Lab Results - Last 24 Hours (Table) 10/29/18 Range/Units 07:12 POC Glucose (mg/dL) 146 H (75-99) mg/dL Assessment and Plan Assessment: Epigastric pain. We'll perform EGD.
--- NOTE | 2018-10-29 08:02 | P.OP ---
Date of Procedure: 10/29/18 Preoperative Diagnosis: Epigastric abdominal pain Postoperative Diagnosis: Antral gastritis Procedure(s) Performed: EGD Anesthesia: MAC Surgeon: Nader David Pathology: other (Antrum) Condition: stable Disposition: PACU Description of Procedure: The patient's placed on the endoscopy table in the lateral position. He received IV sedation. The gastroscope placed oropharynx and passed in the esophagus and into the stomach. Scope was then placed through the pylorus. The first and second portion of the duodenum appeared normal. Scope was then brought back the antrum and this appeared mildly inflamed. A biopsies was performed. The scope was then retroflexed and remainder of the stomach appeared normal. There is no significant hiatal hernia. The GE junction was at 40 cm. The distal esophagus appeared normal. The proximal esophagus appeared normal. Scope was withdrawn from patient. Due to the patient's complaints of epigastric pain. Patient was scheduled for HIDA scan to evaluate for possible biliary dysfunction.
[2018-10-29 08:25] VITALS: BP 129/76; PULSE 53; RESP 18
--- NOTE | 2018-10-29 11:39 | NM ---
EXAMINATION TYPE: NM hepatobiliary w CCK DATE OF EXAM: 10/29/2018 COMPARISON: NONE HISTORY: Epigastric pain TECHNIQUE: After the intravenous administration of 4.86 mCi Tc 99m Mebrofenin hepatobiliary scintigra phy is performed. Immediate images post injection. FINDINGS: There is satisfactory initial accumulation of tracer by the liver. The gallbladder is visualized wit hin 8 minutes. The small bowel activity is noted within 54 minutes. At one hour CCK was administere d, patient was injected with 2.0 mcg of Kinevac, and gallbladder ejection fraction is calculated at 9 0 %, abnormal. Therefore there is no scintigraphic evidence of cystic or common bile duct obstructio n to suggest acute cholecystitis or gallbladder dyskinesia. IMPRESSION: 1. No scintigraphic evidence of acute or chronic cholecystitis. 2. Elevated gallbladder ejection fraction compatible with biliary dyskinesia.
== END | disposition home or self-care (01) ==
LOC: ORWHC2ENDO 06:54
PROVIDERS: ATTEND Surgery
DX: K29.50 Unspecified chronic gastritis without bleeding (principal); K21.9 Gastro-esophageal reflux disease without esophagitis; I25.10 Atherosclerotic heart disease of native coronary artery without angina pectoris; I10 Essential (primary) hypertension; Z87.891 Personal history of nicotine dependence; I48.91 Unspecified atrial fibrillation; E11.9 Type 2 diabetes mellitus without complications; E78.5 Hyperlipidemia, unspecified; M19.90 Unspecified osteoarthritis, unspecified site; N42.9 Disorder of prostate, unspecified; C61 Malignant neoplasm of prostate; C79.51 Secondary malignant neoplasm of bone; Z85.828 Personal history of other malignant neoplasm of skin; Z86.14 Personal history of Methicillin resistant Staphylococcus aureus infection; Z95.1 Presence of aortocoronary bypass graft; Z98.49 Cataract extraction status, unspecified eye; Z82.49 Family history of ischemic heart disease and other diseases of the circulatory system; Z83.6 Family history of other diseases of the respiratory system; Z79.01 Long term (current) use of anticoagulants; Z79.890 Hormone replacement therapy; Z79.4 Long term (current) use of insulin; Z79.899 Other long term (current) drug therapy; Z88.2 Allergy status to sulfonamides
CPT/HCPCS: 88305; 78227; 43239; A9537; J2805; J2001; J2704